=== PATIENT | female | born 1990 | race Caucasian/White ===

== ENCOUNTER 2020-05-15 17:12 | Emergency (ER) | payer BC, SELFPAY ==
--- NOTE | 2020-05-15 17:21 | ED.GENADULT ---
HPI - General Adult General Chief complaint: Wound/Laceration Stated complaint: Laaceration on finger Time Seen by Provider: 05/15/20 17:21 Source: patient Mode of arrival: ambulatory Limitations: no limitations History of Present Illness HPI narrative: 30-year-old female patient presents to the [facility] with complaints of a cut to the left index finger. Patient states she was cutting avocados with some new knives and accidentally cut her finger. Patient denies any numbness or feet tingling to the finger. Patient unsure of when her last tetanus shot was. Related Data Home Medications Medication Instructions Recorded Confirmed sertraline 100 mg PO DAILY 05/15/20 05/15/20 Allergies Allergy/AdvReac Type Severity Reaction Status Date / Time No Known Allergies Allergy Verified 07/17/19 20:33 Review of Systems Review of Systems: Narrative: CONSTITUTIONAL: Denies fever, chills, or sweats. EYES: Denies visual changes, redness, or discharge. ENT: Denies rhinorrhea, congestion, sore throat, or otalgia. CARDIOVASCULAR: Denies chest pain, palpitations, or edema. RESPIRATORY: Denies cough or dyspnea. GASTROINTESTINAL: Denies abdominal pain, nausea, vomiting, or diarrhea. GENITOURINARY: Denies dysuria or hematuria. SKIN: Denies rash or itching. Positive laceration to left index finger MUSCULOSKELETAL: Denies back pain, joint pain, or myalgia. NEUROLOGIC: Denies headache, numbness, or weakness. PSYCHIATRIC: Denies anxiety or depression. [facility] Past Medical History Medical History (Updated 05/15/20 @ 17:45 by CINTHIA Ybarra) Depression UTI (urinary tract infection) Surgical History Surgical History H/O adenoidectomy History of tonsillectomy Family History Family History Grandparent Family history of hypercholesterolemia Hypertension Family history of malignant neoplasm Mother Depression Other Family history of lung cancer Social History Social History Smoking status: Never smoker Alcohol intake: current Gender identity (if verbalized by the patient): Female Comments At the time of my signature I agree with nursing past medical history, surgical, social, and family history. There is no relevant family history pertinent to the presenting complaint. Exam Narrative: Exam Narrative: GENERAL: Well-appearing, well-nourished, and in no acute distress. HEAD: Normocephalic, atraumatic. EYES: PERRLA and EOMI. ENT: Nares clear, no rhinorrhea or epistaxis. Mucous membranes moist. NECK: Supple. No lymphadenopathy CHEST: Clear to auscultation. No respiratory distress. HEART: Regular rate and rhythm. No murmur heard. Normal peripheral pulses. ABDOMEN: Soft, nontender, nondistended, normal active bowel sounds. EXTREMITIES: Normal range of motion. No edema. SKIN: Warm, dry, no rash. Patient has approximately 4 cm horizontal laceration across the base of the left index finger between the PIP and MCP joints. Patient has good range of motion of the finger. Good cap refill good pulses. The laceration is not gaping there is no active bleeding at this time. The laceration is pretty superficial. NEURO: No focal deficits. Alert and oriented x3. Course Vital Signs Vital signs: Vital signs reviewed. Procedures Laceration Laceration 1: Date: 05/15/20 Time: 17:38 Site: hand (Index finger) Side (If applicable): left Size (cm): 4 Description: linear Depth: simple, single layer Local Anesthetic: none ====== Skin Level ====== ====== Subcutaneous Layer ====== ====== Muscle Layer ====== ====== Tendon Layer ====== Dressing: The Procedure was explained and verbal consent was obtained. Sterile drape and prep were done. Copious irrigation was done with saline and Shur-Cl
[2020-05-15 17:23] VITALS: BP 117/83; PULSE 69; RESP 16; TEMP 36.5; O2SAT 100
[2020-05-15] MEDS: TETANUS,DIPHTHERIA,AC PERTUSSIS ADULT (0.5 ML) BOOSTRIX IM (17:42)
== END 2020-05-15 17:52 | disposition home or self-care (01) ==
PROVIDERS: Emergency Provider Nurse Practitioner Family
DX: S61.211A Laceration without foreign body of left index finger without damage to nail, initial encounter (principal); W26.0XXA Contact with knife, initial encounter; Y93.G9 Activity, other involving cooking and grilling; Z23 Encounter for immunization; F32.9 Major depressive disorder, single episode, unspecified
CPT/HCPCS: 12002; 90471; 90715; 99212; G0463

== ENCOUNTER → 2020-10-19 15:47 | Outpatient (CLI) | payer OTHER, SELFPAY ==
--- NOTE | ~2020-10-19 | US_ITS ---
US OB transvaginal DATE: 10/19/2020 16:27 INDICATION: Gestational age determination TECHNIQUE: Real-time imaging via transvaginal approach COMPARISON: None FINDINGS: The uterus measures 8.7 cm height, 5.7 cm anteroposterior and 6.3 cm transverse dimension. A normally shaped intrauterine gestational sac is noted, with normal surrounding hyperechogenicity co nsistent with decidual reaction. Normal amount of adnexal fluid. pole and yolk sac are identifi ed. cardiac motion with heart rate of 174 bpm. Combine-rump length averages 1.85 cm, consistent with estimated gestational age of 8 weeks 2 days +/- 5 days, with SHIRA of 05/29/2021. IMPRESSION: Estimated gestational age of 8 weeks 2 days +/- 5 days; SHIRA by ultrasound is 05/29/2021 Reviewed, dictated and finalized at [facility]. Reviewed, dictated and finalized at [facility]. IMPRESSION: Estimated gestational age of 8 weeks 2 days +/- 5 days; SHIRA by ultr asound is 05/29/2021
== END ==
PROVIDERS: Visit Provider Obstetrics & Gynecology Gynecology
DX: Z36.87 Encounter for antenatal screening for uncertain dates (principal); Z3A.08 8 weeks gestation of pregnancy
CPT/HCPCS: 76817

== ENCOUNTER → 2020-12-26 15:12 | Outpatient (CLI) | payer OTHER, SELFPAY ==
--- NOTE | ~2020-12-26 | US_ITS ---
EXAMINATION: US OB /maternal detail DATE: 12/26/2020 16:24 INDICATION: survey TECHNIQUE: Multiple obstetric sonographic images performed. FINDINGS: No prior studies for comparison. There is a single living fetus in vertex presentation. The placenta is anterior without placenta pre via. Placental margin to the cervix is 0.7 cm. Amniotic fluid volume is subjectively normal. cardiac activity and movement is noted with a heart rate of 155 beats per minute. The following anatomy was identified as normal: 4 chamber heart (outflow tracts are not adequately visualized.) 3 vessel cord cord insertion kidneys urinary bladder stomach spine diaphragm ventricles cisterna magna cerebellum The following biometric data were obtained: BPD: 41mm corresponds to gestational age 18 weeks 3 days. Head circumference: 153 mm corresponds to gestational age 18 weeks 2 days. Abdominal circumference: 131 mm corresponds to gestational age 18 weeks 4 days. Femur length: 27 mm corresponds to gestational age 18 weeks 1 days. Head circumference to abdominal circumference ratio: 1.17 (normal range for expected gestational age is 1.08-1.27). Estimated weight: 239 grams +/- 36 grams using Hadlock method. IMPRESSION: 1: Single living intrauterine with an estimated gestational age of 18weeks 0days by initial ultrasound measurements, with an EDC of 05/29/2021 in vertex presentation. 2. survey limited for evaluation of ventricular outflow tracts. Otherwise, unremarkable survey . Recommend attention to the outflow tracts on subsequent study. 3: Low-lying anterior placenta measuring 2.7 cm to the cervix. Recommend follow-up ultrasound to asse ss for placental migration. Reviewed, dictated and finalized at [facility]. IMPRESSION: 1: Single living intrauterine with an estimated gestational age of 18 weeks 0days by initial ultrasound measurements, with an EDC of 05/29/2021 in ve rtex presentation. 2. survey limited for evaluation of ventricular outflow tracts. Otherwis e, unremarkable survey. Recommend attention to the outflow tracts on subsequent study. 3: Low-lying anterior placenta measuring 2.7 cm to the cervix. Recommend follow -up ultrasound to assess for placental migration.
== END ==
PROVIDERS: Visit Provider Obstetrics & Gynecology Gynecology
DX: Z34.92 Encounter for supervision of normal pregnancy, unspecified, second trimester (principal); Z3A.18 18 weeks gestation of pregnancy
CPT/HCPCS: 76805

== ENCOUNTER 2021-06-03 17:00 | Inpatient (IN) | payer OTHER, SELFPAY ==
[2021-06-03] VITALS (11 sets, daily range): BP systolic 101–135; BP diastolic 54–86; PULSE 61–84; TEMP 37; BMI 37.7
--- NOTE | 2021-06-03 17:22 | LDADM ---
This patient, Tamanna Gabriel, was admitted to Labor/Delivery/Recovery 104 on 06/03/21 at 17:00. Plans for labor, pain management and were discussed with patient. Patient/family oriented to hospital policies and general routines including ID bracelet, bed and alarms, visiting hours, pain management, procedures, bathroom and other care routines, personal items, smoking policy, room service/diet and guest tray routines, security routines, and visiting hours. Patient/Family are encouraged to report perceived risks to care and to ask questions if they do not understand what they are told or what they should do. See OBIX for further documentation.
[2021-06-03 17:36] LABS: Basophils Absolute Auto 0.1 K/mm3 (0.0-0.1); Basophils Percent Auto 0.4 % (0.2-1.2); Eosinophils Absolute Auto 0.2 K/mm3 (0-0.3); Eosinophils Percent Auto 1.3 % (0-4.4); Hematocrit 37.6 % (37.0-47.0); Hemoglobin 12.9 g/dL (12.0-15.0); Immature Granulocyte Percent A 2.2 % (0-0.5); Lymphocytes Absolute Auto 2.65 K/mm3 (0.9-3.2); Lymphocytes Percent Auto 19.3 % (18.3-44.2); Mean Corpuscular HGB Conc 34.3 g/dl (32-36); Mean Corpuscular Hemoglobin 30.7 pg (26-34); Mean Corpuscular Volume 89.5 fl (80-100); Mean Platelet Volume 10.7 fl (7.4-10.4); Monocytes Absolute Auto 0.8 K/mm3 (0.1-0.6); Monocytes Percent Auto 5.5 % (2.6-8.5); Neutrophils Absolute Auto 9.8 K/mm3 (1.3-6.7); Neutrophils Percent Auto 71.3 % (45.5-73.1); Platelet Count Result 259 k/mm3 (150-375); Red Cell Distribution Width 12.5 % (11.5-14.5); White Blood Count 13.8 K/mm3 (4.5-10.0)
[2021-06-03] MEDS: DINOPROSTONE 10 MG VAG INSERT VAGINAL (17:54)
[2021-06-03] MEDS: LACTATED RINGERS 1,000 ML 125 ML IV CONT (22:00)
--- NOTE | 2021-06-03 22:35 | WPDANESEPP ---
Anes - Eval Pre Procedure Procedure: Labor epidural Date/Time: 06/03/21 22:35 Surgeon: emmy Preop Diagnosis: Abd pain with contractions Pre Op Diagnosis: induction of labor Patient Data Age: 31 Gender: F Height: 1.68 m Weight: 106 kg Last Vital Signs Temp 98.6 F 06/03/21 17:47 Pulse 68 06/03/21 20:01 BP 116/56 L 06/03/21 20:01 Allergies Allergy/AdvReac Type Severity Reaction Status Date / Time No Known Allergies Allergy Verified 07/11/20 13:34 Home Medications Medication Instructions Recorded Confirmed Type PNV cmb#95-ferrous fumarate-FA 1 tablet PO DAILY 04/30/21 06/03/21 History [] sertraline 50 mg PO DAILY 04/30/21 06/03/21 History valacyclovir [Valtrex] 500 mg PO DAILY 04/30/21 06/03/21 History Laboratory Tests 06/03/21 06/03/21 06/03/21 17:24 17:24 17:24 WBC 13.8 K/mm3 H K/mm3 (4.5-10.0) RBC 4.20 M/mm3 M/mm3 (4.2-5.4) Hgb 12.9 g/dL g/dL (12.0-15.0) Hct 37.6 % % (37.0-47.0) MCV 89.5 fl fl (80-100) MCH 30.7 pg pg (26-34) MCHC 34.3 g/dl g/dl (32-36) RDW 12.5 % % (11.5-14.5) Plt Count 259 k/mm3 k/mm3 (150-375) MPV 10.7 fl H fl (7.4-10.4) Immature Gran % (Auto) 2.2 % H % (0-0.5) Neut % (Auto) 71.3 % % (45.5-73.1) Lymph % (Auto) 19.3 % % (18.3-44.2) [place] % (Auto) 5.5 % % (2.6-8.5) Eos % (Auto) 1.3 % % (0-4.4) Baso % (Auto) 0.4 % % (0.2-1.2) Lymph # (Auto) 2.65 K/mm3 K/mm3 (0.9-3.2) [place] # (Auto) 0.8 K/mm3 H K/mm3 (0.1-0.6) Eos # (Auto) 0.2 K/mm3 K/mm3 (0-0.3) Baso # (Auto) 0.1 K/mm3 K/mm3 (0.0-0.1) Abs Immat Gran (auto) 0.30 K/mm3 H K/mm3 (0.00-0.031) Absolute Neuts (auto) 9.8 K/mm3 H K/mm3 (1.3-6.7) Absolute Nucleated RBC 0.0 K/mm3 K/mm3 (0.0-0.012) Nucleated RBC % 0.0 % % (0.0-0.2) RPR Pending Blood Type O Positive Antibody Screen Negative Patient hx anesthesia problems: none Family hx anesthesia problems: none Results Review: All pre-operative results and documents have been reviewed as part of the pre-operative evaluation. [facility] Past Medical History Medical History (Updated 06/03/21 @ 22:36 by Chris Romero CRNA) Anxiety and depression Depression Obesity and not yet delivered Septal defect, heart UTI (urinary tract infection) Surgical History Surgical History H/O adenoidectomy History of tonsillectomy Family History Family History Grandparent Family history of hypercholesterolemia Hypertension Family history of malignant neoplasm Mother Depression Other Family history of lung cancer Social History Social History (Updated 07/11/20 @ 13:36 by Beatriz Stuart CMA) Smoking status: Never smoker Second hand tobacco smoke exposure: No Alcohol intake: current Substance use: never Substance use type: does not use Gender identity (if verbalized by the patient): Female Spiritual care concerns: No Exam Day of Procedure 06/03/21 22:35 Patient weight: obese Airway: Mallampati scale class II Neurological: alert and oriented
[2021-06-04] VITALS (116 sets, daily range): BP systolic 88–137; BP diastolic 41–91; PULSE 28–227; RESP 15–18; TEMP 36.5–37.7; O2SAT 85–100
[2021-06-04] MEDS: fentaNYL CITRATE INJ (*CRX) 100 MCG/2 ML VIAL 50 MCG IV PUSH (00:37)
--- NOTE | 2021-06-04 05:14 | WPDOBADMIT ---
Obstetrics - Admit Note Admission Note: record reviewed. No pertinent additions to the history and/or any subsequent changes in the physical findings that are not consistent with the expected course of the were found. Patient labor began with cervidil. Called to bedside for prolonged decel with contractions. decel x 8 mins. carmela every 1-2 mins. Terbutaline x1 given contractions stopped bradycardia resolved. AROM scant green tinged fluid. IUPC and scalp electrode placed. monitoring showed variable decels Amnioinfusion started 300 cc bolus with 125cc/hr continuous. Additions to the history and/or subsequent changes in the physical findings follow. None.
--- NOTE | 2021-06-04 05:38 | PM.IMHP ---
H&P: HPI History of Present Illness Date/Time: 06/04/21 05:38 Patient is 31 y/o @ 40 and 6/[address] Ferrell[address] complicated by . Presented to Labor and delivery for induction of labor. with cervidil. Patient labor began with cervidil. Called to bedside for prolonged decel with contractions. decel x 8 mins. carmela every 1-2 mins. Terbutaline x1 given contractions stopped bradycardia resolved. AROM scant green tinged fluid. IUPC and scalp electrode placed. monitoring showed variable decels Amnioinfusion started 300 cc bolus with 125cc/hr continuous Despite intervention continue to have repetitive decels. Decision made to proceed with csection. Chief Complaint: Induction of labor Review of Systems Review of Systems: nausea PMFSH Past Medical History Medical History (Updated 06/04/21 @ 05:46 by Rajeev Hutchins MD) Anxiety and depression Depression intolerance to labor, delivered, current hospitalization Obesity and not yet delivered Septal defect, heart UTI (urinary tract infection) Surgical History Surgical History H/O adenoidectomy History of tonsillectomy Family History Family History Grandparent Family history of hypercholesterolemia Hypertension Family history of malignant neoplasm Mother Depression Other Family history of lung cancer Social History Social History (Updated 07/11/20 @ 13:36 by Beatriz Stuart [facility]) Smoking status: Never smoker Second hand tobacco smoke exposure: No Alcohol intake: current Substance use: never Substance use type: does not use Gender identity (if verbalized by the patient): Female Spiritual care concerns: No Meds Home Medications and Allergies Home Medications Medication Instructions Recorded Confirmed Type PNV cmb#95-ferrous fumarate-FA 1 tablet PO DAILY 04/30/21 06/03/21 History [] sertraline 50 mg PO DAILY 04/30/21 06/03/21 History valacyclovir [Valtrex] 500 mg PO DAILY 04/30/21 06/03/21 History Allergies Allergy/AdvReac Type Severity Reaction Status Date / Time No Known Allergies Allergy Verified 07/11/20 13:34 Vital Signs Vital Signs - 24 hr 06/03/21 17:40 06/03/21 17:47 06/03/21 18:01 Temperature 37.0 C Pulse Rate 79 66 Blood Pressure 126/86 124/75 Pulse Oximetry 06/03/21 18:31 06/03/21 19:01 06/03/21 19:31 Temperature Pulse Rate 69 70 61 Blood Pressure 107/54 L 108/61 113/56 L Pulse Oximetry 06/03/21 20:01 06/03/21 22:40 06/03/21 22:46 Temperature Pulse Rate 68 75 75 Blood Pressure 116/56 L 135/78 124/82 Pulse Oximetry 06/03/21 23:01 06/03/21 23:16 06/04/21 02:27 Temperature Pulse Rate 77 84 84 Blood Pressure 101/77 128/84 128/74 Pulse Oximetry 06/04/21 02:31 06/04/21 02:35 06/04/21 02:40 Temperature Pulse Rate 79 Blood Pressure 88/61 L Pulse Oximetry 99 98 06/04/21 02:41 06/04/21 02:42 06/04/21 02:44 Temperature Pulse Rate 87 82 75 Blood Pressure 121/75 114/91 H 115/74 Pulse Oximetry 06/04/21 02:45 06/04/21 02:46 06/04/21 02:48 Temperature Pulse Rate 85 68 Blood Pressure 104/88 116/59 L Pulse Oximetry 100 06/04/21 02:50 06/04/21 02:51 06/04/21 02:53 Temperature Pulse Rate 75 67 Blood Pressure 122/70 107/49 L Pulse Oximetry 100 06/04/21 02:55 06/04/21 02:56 06/04/21 02:58 Temperature 37.4 C Pulse Rate 69 81 Blood Pressure 120/64 117/67 Pulse Oximetry 99 06/04/21 03:00 06/04/21 03:01 06/04/21 03:05 Temperature Pulse Rate 77 Blood Pressure 122/73 Pulse Oximetry 98 99 06/04/21 03:10 06/04/21 03:15 06/04/21 03:16 Temperature Pulse Rate 70 Blood Pressure 112/52 L Pulse Oximetry 100 100 06/04/21 03:20 06/04/21 03:25 06/04/21 03:30 Temperature Pulse Rate Blood Pressure
--- NOTE | 2021-06-04 05:47 | WPDHPUPDATE1 ---
History and Physical Update Update Date/Time: 06/04/21 05:47 History and Physical has been reviewed, including an updated exam of the patient. There are NO changes in the patient's condition. Risks, benefits, and alternatives have been discussed and questions answered. Patient agrees to proceed with procedure.
[2021-06-04] MEDS: OXYTOCIN 30 UNITS/NS 500 ML 30 UNITS/500 ML BAG 125 UNITS IV CONT (08:24)
--- NOTE | 2021-06-04 09:08 | PC.NURSE ---
Patient transferred to post room #286 per stretcher from labor and delivery. Support person present. Oriented to unit, room, information board, rooming in, admission packet and security measures. Patient verbalizes understanding.
[2021-06-04] MEDS: KETOROLAC 30 MG/ML VIAL (*BKC) IV PUSH ×2 (09:40→15:59)
[2021-06-04] MEDS: LORATADINE 10 MG TABLET PO (09:40)
[2021-06-04] MEDS: diphenhydrAMINE HCl INJ 50 MG/ML VIAL 25 MG IV PUSH (09:40)
--- NOTE | 2021-06-04 10:40 | PC.NURSE ---
Mother called out for assist with feeding, reporting she is unable to latch . Nipples appear flat, demonstrated how to roll at nipples to draw out. Both nipples draw out to everted nipples. Reviewed infant feeding cues, frequencies, duration of feedings, feeding elimination flow sheet, and signs of adequate intake. Demonstrated stimulation techniques to wake infant for feeding. Assisted with to breast. Reviewed positioning/alignment in football, holding breast in ?C? hold and guided asymmetrical latch on. Reviewed rational for each. Several attempts before infant able to latch correctly.. nursed eagerly with steady draws and occasional swallowing noted, some pausing noted. Reviewed signs of a correct latch, effective nursing and suck swallow ratio. Suggested mother stimulate while feeding to increase stimulation for milk supply, for increased intake and to assist with maintaining deep latch. Infant would slip to shallow latch causing tenderness and release latch. Demonstrated how to adjust latch more deeply while feeding as needed. Mother reports she can feel the difference in latch with no tenderness. Nipple care reviewed of lanolin after feedings, warm compresses as needed. Instructed mother to call out for RN assistance if she is unable to latch for feeding or she has discomfort with nursing. Instructed feeding should be initiated three hours from start of last feeding or if feeding cues are noted before. Mother voiced understanding of information shared.
[2021-06-04] MEDS: DEXTROSE 5%/0.45% SOD CHL 1,000 ML 125 ML IV CONT (12:43)
--- NOTE | 2021-06-04 13:30 | PC.NURSE ---
Mother called out for assist with feeding, reporting she is unable to latch . Assisted with to breast in football. Assisted mother with pillows and support due to C/S. Reviewed positioning/alignment in football, holding breast in ?C? hold and guided asymmetrical latch on. Reviewed rational for each. Several attempts before able to latch correctly.. Infant nursed eagerly with steady draws and occasional swallowing noted, some pausing noted. Reviewed signs of a correct latch, effective nursing and suck swallow ratio. Suggested mother stimulate while feeding to increase stimulation for milk supply, for increased intake and to assist with maintaining deep latch. Infant would slip to shallow latch causing tenderness and release latch. Demonstrated how to adjust latch more deeply while feeding as needed. Mother reports she can feel the difference in latch with no tenderness. Nipple care reviewed of lanolin after feedings, warm compresses as needed. Instructed mother to call out for RN assistance if she is unable to latch infant for feeding or she has discomfort with nursing. Instructed feeding should be initiated three hours from start of last feeding or if feeding cues are noted before. Mother voiced understanding of information shared.
[2021-06-04 14:39] LABS: Rapid Plasma Reagin Non-Reactive (NonReactive)
[2021-06-04] MEDS: SERTRALINE HCL 50 MG TABLET PO (15:54)
[2021-06-04] MEDS: HYDROcodone/acetaminophen (*CRX) 10-325 MG TABLET 1 TAB PO ×2 (19:28→22:28)
[2021-06-04] MEDS: IBUPROFEN 600 MG TABLET PO (22:27)
[2021-06-05] MEDS: HYDROcodone/acetaminophen (*CRX) 10-325 MG TABLET 1 TAB PO (02:01)
[2021-06-05 04:10] VITALS: BP 98/61; PULSE 72; RESP 16; TEMP 36.5; O2SAT 95
[2021-06-05 04:56] LABS: Basophils Absolute Auto 0.1 K/mm3 (0.0-0.1); Basophils Percent Auto 0.6 % (0.2-1.2); Eosinophils Absolute Auto 0.2 K/mm3 (0-0.3); Eosinophils Percent Auto 1.3 % (0-4.4); Hematocrit 34.2 % (37.0-47.0); Hemoglobin 11.2 g/dL (12.0-15.0); Immature Granulocyte Percent A 0.8 % (0-0.5); Lymphocytes Absolute Auto 3.09 K/mm3 (0.9-3.2); Lymphocytes Percent Auto 25.8 % (18.3-44.2); Mean Corpuscular HGB Conc 32.7 g/dl (32-36); Mean Corpuscular Hemoglobin 30.7 pg (26-34); Mean Corpuscular Volume 93.7 fl (80-100); Mean Platelet Volume 10.4 fl (7.4-10.4); Monocytes Absolute Auto 0.6 K/mm3 (0.1-0.6); Monocytes Percent Auto 4.8 % (2.6-8.5); Neutrophils Percent Auto 66.7 % (45.5-73.1); Platelet Count Result 202 k/mm3 (150-375); Red Blood Count 3.65 M/mm3 (4.2-5.4); Red Cell Distribution Width 13.2 % (11.5-14.5)
--- NOTE | 2021-06-05 07:10 | WPDANLDNPN2 ---
Anes-Prog Note L&D-Neuraxial Date/Time: 06/05/21 07:10 Neuraxial medications: epidural PF morphine Opiod-related complaints: none Patient feedback: Patient satisfied with post-operative pain management.
--- NOTE | 2021-06-05 07:10 | WPDANLDPN2 ---
Anes-Prog Note L&D Date/Time: 06/05/21 07:10 Comfortable throughout: labor, delivery and section Neuraxial method: epidural Epidural/Spinal procedure site: clean & non-tender Neuro status: Neuro function grossly intact. Cardiovascular status: normal Respiratory status: normal Airway patency: baseline Mental status: baseline Post-Op hydration status: normal Vital Signs: Last Vital Signs Temp 36.5 C 06/05/21 04:10 Pulse 72 06/05/21 04:10 Resp 16 06/05/21 04:10 BP 98/61 L 06/05/21 04:10 Pulse Ox 95 06/05/21 04:10 Pain score (VAS): 0 I/O: Intake & Output 06/04/21 06/04/21 06/05/21 15:59 23:59 07:59 Intake Total 1950 400 Output Total 1150 1200 900 Balance -1150 750 -500 Post-procedural complaints: none Patient feedback: Patient satisfied with anesthetic care.
--- NOTE | 2021-06-05 07:35 | P.PNOB_ITS ---
OB - PN: Subj Subjective Date/time seen: 06/05/21 07:35 Patient comments: no complaints and pain well controlled baby status: doing well OB - PN: Obj Data Labs CBC & Chem 7: 06/05/21 04:21 Labs: Laboratory Results - last 24 hr 06/03/21 06/05/21 17:24 04:21 WBC 12.0 H RBC 3.65 L Hgb 11.2 L Hct 34.2 L MCV 93.7 MCH 30.7 MCHC 32.7 RDW 13.2 Plt Count 202 MPV 10.4 Immature Gran % (Auto) 0.8 H Neut % (Auto) 66.7 Lymph % (Auto) 25.8 [place] % (Auto) 4.8 Eos % (Auto) 1.3 Baso % (Auto) 0.6 Lymph # (Auto) 3.09 [place] # (Auto) 0.6 Eos # (Auto) 0.2 Baso # (Auto) 0.1 Abs Immat Gran (auto) 0.10 H Absolute Neuts (auto) 8.0 H Absolute Nucleated RBC 0.0 Nucleated RBC % 0.0 RPR Non-reactive OB - PN A/P Plan day: 1 Plan: routine care Time Spent With Patient Time: Total time spent is greater than 50% in coordination of care (as documented) at patient's floor/unit and/or counseling patient: Exam Narrative: inc c/d/i : Bimanual exam- vagina & uterus: other (Uterus firm, nt @U)
[2021-06-05 07:45] VITALS: BP 102/63; PULSE 68; RESP 16; TEMP 37; O2SAT 97
[2021-06-05] MEDS: HYDROcodone/acetaminophen (*CRX) 5-325 MG TABLET 1 TAB PO ×3 (09:00→20:43)
[2021-06-05] MEDS: DOCUSATE SODIUM 100 MG CAPSULE PO ×2 (09:00→16:09)
[2021-06-05] MEDS: IBUPROFEN 600 MG TABLET PO ×2 (09:01→16:09)
--- NOTE | 2021-06-05 11:45 | PC.NURSE ---
Mother called out for assist with feeding. Mother reports infant has had difficulties with latching and maintaining latch. Mother was given a nipple shield for feeding and now using for all feedings. Infant is able to freely thrust tongue past gum ridge and flange both lips, tends to tongue suck and not open wide for deep latch. Skin is intact on both nipples, slight redness and bruising noted bilaterally. Nipple care reviewed of lanolin after feedings, warm compresses as needed. Instructions given on application and cleaning of shield. Discussed nipple shield precautions and possible complications. Patient able to return demonstration on proper application of shield. Discussed the need to initiate pumping if continues to nurse with the shield. Patient verbalizes understanding. Reviewed feeding cues, frequencies, duration of feedings, feeding elimination flow sheet, and signs of adequate intake. Demonstrated stimulation techniques to wake infant for feeding. Assisted with to breast. Reviewed positioning/alignment in cross cradle, holding breast in ?U? hold and guided asymmetrical latch on. Reviewed rational for each. made eager attempts and was unable to draw nipple in deeply. Attempt for 10 minutes. With shield in place, was able to latch correctly. Infant nursed eagerly, with steady draws for short burst followed with pausing. Reviewed signs of a correct latch, effective nursing and suck swallow ratio. was able to maintain latch without discomfort to mother. Suggested mother stimulate while feeding to increase stimulate, increase intake and to assist with maintaining deep latch. Demonstrated how to adjust latch more deeply while feeding if needed. Instructed mother to call out for RN assistance if she is unable to latch infant for feeding or she has discomfort with nursing. Instructed feeding should be initiated three hours from start of last feeding or if feeding cues are noted before. Mother voiced understanding of information shared.
--- NOTE | 2021-06-05 16:55 | P.OP_ITS ---
Procedure Note - Detailed Date of Procedure 06/04/21 Pre-op Diagnosis intolerance to labor Post-op Diagnosis same Procedure Performed primary LTCS Surgeon Rajeev Hutchins MD Anesthesia epidural Indications recurrent decelarations Findings male infant vertex prolapsed cord along right cheaek and ear, nuchal cord, body cord and cord around left ankle. Description of Procedure Patient was taken to the operating room with IV running. She was prepped and draped in a normal sterile fashion and placed in a supine position with leftward tilt. Patient epidural was in place. A Pfannenstiel skin incision was made with a scalpel carried down to the underlying layer of fascia. This fascia incision was then extended bilaterally with Sun scissors. Superior aspect of the incision was grasped with Inderjit clamps elevated and dissected off the rectus muscles. Inferior portion of the incision was grasped with Inderjit clamps elevated dissected off the rectus muscles. The rectus muscles were in the midline the peritoneum was entered bluntly bladder blade was inserted uterine and a low transverse incision was made on the uterus with the scalpel. This incision was extended bluntly. The prolapsed cord along right cheek and ear, head was delivered atraumatically , nuchal cord, body cord and cord around left ankle.nuchal cord noted loose and reduced and the remainder of the fetus was delivered atraumatically cord was clamped and cut and handed off to the waiting nurse the hairspring i inspector. Cord gases were obtained cord blood was obtained the placenta was delivered spontaneously and the uterus was exteriorized and cleared of all clots and debris. Uterine incision was closed with 0 Monocryl in a running locked fashion 2nd layer of the same suture was used to imbricate this incision on the corner of the right portion of the uterus her bleeding was noted in a figure-eight stitch was placed with 0 Monocryl hemostasis was assured. The uterus was returned to the abdomen the gutters were cleared of all clots and debris uterine incision was covered with Interceed in the T fashion the muscles were examined for hemostasis and the fascia was closed with 0 Vicryl in a running fashion. Subcutaneous tissue was irrigated and closed with 3-0 plain gut and the skin was closed with 0 Vicryl on a Asael needle the patient received 2g Ancef prior to skin incision. Estimated Blood Loss -505.0 Urine Output 600 Drains Yes Packing No Pathology yes Complications None Condition stable Disposition PACU
--- NOTE | 2021-06-05 17:01 | PM.OBPRVD ---
OB - Delivery Note Procedure Delivery date: 06/04/21 Procedure: Procedures Operation Date: 06/04/21 05:45 Actual Procedure Side Surgeon p Section Rajeev Hutchins MD events: Labor Induction and Meconium Stained Fluid Intrapartal events: Intolerance Induction method: AROM and per cervidil protocol Delivery monitor: external FHT, external uterine, internal FHT and internal uterine Route of delivery: Quantitative Blood Loss (ml): 505 Anesthesia type: Epidural Disposition: PACU Baby Date of : 06/04/21 Weeks of gestation at delivery: 40 Infant gender: Male presentation: vertex Placenta delivery description: Spontaneous cord vessel description: 3 Vessels, Nuchal Cord, Around Body x1 and Around Extremity x1
[2021-06-05 20:30] VITALS: BP 129/80; PULSE 63; RESP 16; TEMP 37.2; O2SAT 99
[2021-06-05] MEDS: SERTRALINE HCL 50 MG TABLET PO (20:44)
[2021-06-06] MEDS: IBUPROFEN 600 MG TABLET PO ×3 (01:17→15:42)
[2021-06-06] MEDS: HYDROcodone/acetaminophen (*CRX) 5-325 MG TABLET 1 TAB PO (01:17)
[2021-06-06 07:45] VITALS: BP 120/81; PULSE 65; RESP 18; TEMP 37.3; O2SAT 100
--- NOTE | 2021-06-06 08:00 | PC.NURSE ---
Consult with pt., RN reports has a low blood glucose level and requires supplementation. Mother is upset believing infant has been feeding well. Assured mother infant will be able to continue to breastfeed after this bottle feeding. Another blood glucose will be done 1 hour after feeding. Mother will supplement 20-30mls formula then put to breast. Next feedings mother will put infant to breast by three hours from last feeding or before if feeding cues noted. Once has breastfed mother will then [id number] mls formula and will pump due to nipple shield use. Discussed possible reasoning for low glucose level. Discussed the difference of effective vs ineffective feeding. Reviewed infant is latching with good burst of suckling, he is not feeding consistently with adequate milk transfer at this time and continues to need supplement after . Feeding options discussed, Feeding Plan is for mother to put to breast each feeding for up to 15 minutes, then pace feed supplement 15-20 mls and pump for 10-15 minutes. Parents are comfortable with supplementation and pumping. If infant begins to nurse effectively with long draws and frequent swallowing noted, may decrease supplementation and discontinue pumping. Suggested mother have LC diesel plant operator observe feeding before discontinuing supplementation. Discussed increasing supplementation as infant requires to satisfactions. Reviewed paced feeding and suggested to stop when infant is satisfied, as long as infant is having required output. With increased supplementation infant may not want to feed for 4 hours. Mother will continue to pump on feeding schedule and will increase session to 20 minutes if pumping every 4 hours. Instructed mother to call out for RN assistance if she is unable to latch for feeding or she has discomfort with nursing. Instructed feeding should be initiated three hours from start of last feeding or if feeding cues are noted before. Mother voiced understanding of information shared.
[2021-06-06] MEDS: DOCUSATE SODIUM 100 MG CAPSULE PO (09:02)
[2021-06-06] MEDS: MULTIVIT/MIN/PREN/FOL AC/IRON TABLET 1 TAB PO (09:02)
[2021-06-06] MEDS: HYDROcodone/acetaminophen (*CRX) 10-325 MG TABLET 1 TAB PO ×3 (09:02→20:34)
[2021-06-06 20:15] VITALS: BP 137/86; PULSE 84; RESP 18; TEMP 37.1; O2SAT 97
[2021-06-07] MEDS: IBUPROFEN 600 MG TABLET PO ×2 (00:19→09:33)
[2021-06-07] MEDS: HYDROcodone/acetaminophen (*CRX) 10-325 MG TABLET 1 TAB PO (00:20)
[2021-06-07] MEDS: SERTRALINE HCL 50 MG TABLET PO (00:20)
[2021-06-07] MEDS: DOCUSATE SODIUM 100 MG CAPSULE PO ×2 (00:23→09:32)
[2021-06-07] MEDS: HYDROcodone/acetaminophen (*CRX) 5-325 MG TABLET 1 TAB PO ×2 (04:49→09:33)
--- NOTE | 2021-06-07 07:55 | PC.NURSE ---
Observed mother is able to independently latch infant with appropriate positioning/alignment. She denies any nipple discomfort, is feeding as required and waking infant to feed if needed. is more awake and making eager attempts with and maintaining latch without nipple shield. Infant has had a few effective feedings in the past 24 hours, all feedings is supplemented. Infant is currently meeting outcomes for weight, output, jaundice and feeding frequencies. ICP has suggested supplement after all breastfeedings until mother's milk is in and evaluated by corporation officer. Mother continues to pump after all feedings without difficulties or discomfort. Mother has a pump for home use. Discussed the difference of effective vs ineffective feeding. Reviewed infant requires supplementation after all feedings. He is latching with good burst of suckling, he is not feeding consistently with adequate milk transfer at this time and continues to need to be supplement after . Feeding plan discussed, Feeding Plan is for mother to put to breast each feeding for up to 15 minutes, then pace feed supplement 25-30 mls and pump for 10-15 minutes. Discussed increasing supplementation as infant requires to satisfactions. Reviewed paced feeding and suggested to stop when infant is satisfied, as long as infant is having required output. With increased supplementation infant may not want to feed for 4 hours. Mother will continue to pump on infant feeding schedule and will increase session to 20 minutes if pumping every 4 hours. If infant begins to nurse effectively with long draws and frequent swallowing noted, infant may decrease supplementation and discontinue pumping. Advised not to discontinue supplement until a pre/post feeding evaluation by infant PCP, Follow up RN or LC is completed. Mother states she feels confident to continue feeding plan at home. Reviewed transition to breast milk, signs of adequate intake, and engorgement/relief. Instructed to call ICP if intake/output less than required. Reviewed regular medications mother is taking. Information provided per [place]. Reviewed community resources on the [facility] website and in the Mom/Baby guide. Information on outpatient services provided. Mother has no further questions at this time.
[2021-06-07 08:40] VITALS: BP 116/79; PULSE 64; RESP 18; TEMP 36.3; O2SAT 99
[2021-06-07] MEDS: MULTIVIT/MIN/PREN/FOL AC/IRON TABLET 1 TAB PO (09:32)
[2021-06-08 10:51] VITALS: BP 121/74; PULSE 83; RESP 20; TEMP 37; O2SAT 99
--- NOTE | 2021-06-15 13:07 | PM.OBDSVD ---
DS: Admitting Diagnosis Discharge Date 06/07/21 Admitting Diagnosis Labor OB - DS: Summary OB Procedures : Ultrasound OB Procedures Intrapartum: OB Procedures: : None Peripartum Data Procedures: Procedures Operation Date: 06/04/21 05:45 Actual Procedure Side Surgeon p Section Rajeev Hutchins MD Time Spent with Patient Time attestation: Total time spent providing and/or coordinating discharge services: DS: Data Data Completed and Pending Completed studies during hospitalization: Pending at discharge 06/04/21 07:07 Surgical [PTH] Routine Discharge Plan Discharge Attending physician on discharge: Rajeev Hutchins Discharging Clinician: Rajeev Hutchins Anticipated Discharge Date/Time: 06/07/21 11:00 Patient Disposition: Home, Self-Care Activity: may shower, as tolerated and pelvic rest Diet: regular Discharge Instructions: Education: Mom and Baby Guide Given to: Mother Follow-Up: Call your delivering provider's office for an appointment to be seen in: 4 Weeks Mom and baby should come to the [facility] for the follow-up appointment. Appointment Date/Time: June 08, 2021 at 11:00 am What to expect at your follow-up visit: Blood Pressure Check Physical Assessment Call [phone] if you are unable to keep your appointment time. BREAST CARE: * Wear a snug supportive bra. * For engorgement discomfort: Breast Feeding: * Apply warm moist washcloths * Express milk as needed to relieve engorgement * Wear loose clothing Bottle Feeding: * May apply ice packs * For sore nipples: * Identify correct latch-on * Apply warm moist washcloths before and after nursing * Air dry nipples after nursing * May apply Lansinoh cream to nipples ABDOMINAL INCISION: (if applicable) * Allow incision to air dry * Do NOT use lotions for powders on your incision * When showering, allow soap and water to run over the incision, but do not wash incision EPISIOTOMY/PERINEAL CARE: * Until bleeding stops, use your guido bottle after urinating * Change your pad frequently throughout the day * You may take sitz baths several times a day (fill your bathtub with warm water and soak for 20 minutes.) Do NOT bathe in the water * No tub baths until seen by your physician - You may shower ACTIVITY: * Rest as much as possible. * Do not exercise or lift anything heavier than your baby (such as laundry or other children.) * Avoid stairs or driving as much as possible. * Do not put anything into the vagina. No douching, tampons, or sexual activity until seen by physician. NOTIFY PHYSICIAN IF YOU HAVE ANY QUESTIONS OR IF ANY OF THE FOLLOWING SYMPTOMS OCCUR: * If your episiotomy or incision becomes red, swollen, or more painful than what you have experienced in the hospital. * If your vaginal bleeding becomes foul smelling. * If your vaginal bleeding becomes more heavy than a period or if your bleeding changes from pink to bright red. However, you may pass an occasional walnut-sized clot once or twice for the first week . * If you experience a sharp, shooting pain in you calves. * If you discover a hard, reddened area on your breast or if you experience flu-like symptoms. DIET: * Eat regular, well-balanced meals. * Drink plenty of fluids daily. If , drink to thirst. Patient Instructions: Antibiotic Form Stand Alone Forms: General Discharge Information Follow-up/Referrals: Rajeev Hutchins MD [Physician] - Discharge Medications: New hydrocodone-acetaminophen 5-325 mg Tablet 1 tablet PO Q3H PRN (Reason: Moderate Pain (4-6)) Qty: 30 RF: 0 ibuprofen 600 mg Tablet 600 mg PO Q6H PRN (Reason: Cramping) Qty: 60 RF: 0 medroxyprogesterone [Depo-Provera] 150 mg/mL suspension 150 mg IM [id number] Qty: 1 RF: 3 [place]
== END 2021-06-07 12:42 | disposition home or self-care (01) | DRG 787 ==
LOC: ANHOB2 06-07 09:54 → ANHLDR 06-08 09:55 → ANHOB2 06-08 09:55
PROVIDERS: Admitting Provider Obstetrics & Gynecology Gynecology; Visit Provider Obstetrics & Gynecology
PROC: 10D00Z1 Extraction of Products of Conception, Low, Open Approach (ICD-10-PCS; CPT 59514; principal; 2021-06-04 05:45)
DX: O99.284 Endocrine, nutritional and metabolic diseases complicating childbirth (principal); O98.32 Other infections with a predominantly sexual mode of transmission complicating childbirth; Z37.0 Single live birth; Z3A.40 40 weeks gestation of pregnancy; E03.9 Hypothyroidism, unspecified; O69.2XX0 Labor and delivery complicated by other cord entanglement, with compression, not applicable or unspecified; O77.0 Labor and delivery complicated by meconium in amniotic fluid; O99.344 Other mental disorders complicating childbirth; F41.8 Other specified anxiety disorders; O36.8330 Maternal care for abnormalities of the fetal heart rate or rhythm, third trimester, not applicable or unspecified; O69.0XX0 Labor and delivery complicated by prolapse of cord, not applicable or unspecified; A60.00 Herpesviral infection of urogenital system, unspecified
CPT/HCPCS: 36415; 85025; 86592; 86850; 86900; 86901; 88307; A9270; J0131; J1200; J1885; J2274; J2405; J2590; J2795; J3010; J7120

== ENCOUNTER 2022-04-12 15:54 | Emergency (ER) | payer OTHER, SELFPAY ==
--- NOTE | ~2022-04-12 | XR_ITS ---
EXAMINATION: XR foot LT min 3V DATE: 04/12/2022 16:28 INDICATION: Medial left foot pain. TECHNIQUE: 4 views of left foot were obtained. COMPARISON: None. FINDINGS: Bone alignment is normal. No fracture. There is mild osteoarthritis of first metatarsophala ngeal joint. IMPRESSION: 1. Mild osteoarthritis of first metatarsophalangeal joint. Reviewed, dictated and finalized at location B.
[2022-04-12 16:10] VITALS: BP 120/77; PULSE 66; RESP 16; TEMP 36.7; O2SAT 99
--- NOTE | 2022-04-12 16:10 | ED.LOWEXIN ---
HPI - Extremity Injury (Lower) General Chief Complaint: Extremity Injury, Lower Stated Complaint: Left Foot Pain Time Seen by Provider: 04/12/22 16:10 Source: patient, RN notes reviewed and old records reviewed Mode of arrival: ambulatory Limitations: no limitations History of Present Illness HPI Narrative: 32-year-old female presents to the [facility] with complaints of left foot pain since Friday. No known injury. Patient reports I think I have a stress fracture. Related Data Home Medications Medication Instructions Recorded Confirmed sertraline 50 mg tablet 50 mg PO DAILY 04/30/21 06/03/21 Allergies Allergy/AdvReac Type Severity Reaction Status Date / Time No Known Allergies Allergy Verified 04/12/22 15:55 Review of Systems Review of Systems: All systems reviewed & are unremarkable except as noted in HPI and below Constitutional: Constitutional: Reports no additional constitutional complaints, Denies chills and Denies fever(s) Eyes: Eyes: Reports no additional eye complaints ENT: Reports system reviewed and no additional complaints, except as documented Cardiovascular: Cardiovascular: Reports no additional cardiovascular complaints Respiratory: Respiratory: Reports no additional respiratory complaints Gastrointestinal: Gastrointestinal: Reports no additional gastrointestinal complaints Musculoskeletal: Musculoskeletal: Reports as per HPI Integumentary/Breasts: Skin/Breast: Reports system reviewed and no additional complaints, except as docu Neurologic: Reports system reviewed and no additional complaints, except as documented Psychiatric: Psychiatric: Reports no additional psychiatric complaints Allergic/Immunologic: Allergic/Immunologic: Reports no additional allergic/immunologic complaints [facility] Past Medical History Medical History (Updated 04/12/22 @ 19:48 by Abbi Colon APRN) Anxiety and depression Depression intolerance to labor, delivered, current hospitalization Obesity and not yet delivered Septal defect, heart UTI (urinary tract infection) Surgical History Surgical History H/O adenoidectomy History of tonsillectomy Family History Family History Grandparent Family history of hypercholesterolemia Hypertension Family history of malignant neoplasm Mother Depression Other Family history of lung cancer Social History Social History Smoking status: Never smoker Second hand tobacco smoke exposure: No Alcohol intake: current Substance use: never Substance use type: does not use Gender identity (if verbalized by the patient): Female Spiritual care concerns: No Comments At the time of my signature, I reviewed and agree with the nursing past medical, surgical, social, and family history. There is no relevant family history pertinent to the patient complaint. Exam Const: General: healthy appearing, no acute distress, alert and well nourished Nutritional Appearance: well nourished and obese Orientation/consciousness: patient oriented x3 Limitations: no limitations HENMT: Head: normal to inspection Ears: external ears normal Eyes: General: appearance normal, both eyes and all related structures Pupils: Equal, round and reactive pupils present Neck: Neck: normal visual inspection, no lymphadenopathy and no meningeal signs Chest: Chest palpation & inspection: normal inspection of the chest Resp: Effort & Inspection: normal respiratory effort and no use of accessory muscles Auscultation: clear to auscultation bilaterally, no crackles, no rales, no rhonchi and no wheezes Cardio: Rate: regular rate Rhythm: regular rhythm Skin: General skin exam: normal color Rashes: no rashes Wounds: no wounds Neuro: General: patient oriented x3, moves all extremities, no meningeal s
== END 2022-04-12 16:46 | disposition home or self-care (01) ==
PROVIDERS: Emergency Provider Nurse Practitioner
DX: M79.672 Pain in left foot (principal); M19.072 Primary osteoarthritis, left ankle and foot; E66.9 Obesity, unspecified; Z68.35 Body mass index [BMI] 35.0-35.9, adult; F41.9 Anxiety disorder, unspecified; F32.A Depression, unspecified
CPT/HCPCS: 73630; 99213; G0463

== ENCOUNTER 2022-07-04 14:50 | Emergency (ER) | payer OTHER, SELFPAY ==
[2022-07-04 15:05] VITALS: BP 106/74; PULSE 85; RESP 16; TEMP 36.8; O2SAT 99
[2022-07-04 15:06] VITALS: BP 106/74; PULSE 85; RESP 16; TEMP 36.8; O2SAT 99
--- NOTE | 2022-07-04 15:33 | ED.URI ---
HPI - URI/Sore Throat General Chief Complaint: Upper Respiratory Infection Stated Complaint: Coughing,Running Nose Time Seen by Provider: 07/04/22 15:10 Source: patient Mode of arrival: ambulatory Limitations: no limitations History of Present Illness HPI Narrative: Tamanna is a 32-year-old female patient presenting to clinic today with complaints of body aches, fever, coughing, sore throat, and runny nose times 2 days. No known exposure to anybody with COVID, flu, or strep. MD elicited complaint: sore throat and nasal congestion Related Data Home Medications Medication Instructions Recorded Confirmed sertraline 50 mg tablet 50 mg PO DAILY 04/30/21 07/04/22 Allergies Allergy/AdvReac Type Severity Reaction Status Date / Time No Known Allergies Allergy Verified 07/04/22 15:05 Review of Systems Review of Systems: Pertinent positives per HPI. Patient denies any rash, headache, visual changes, dizziness, shortness of breath, chest pain, palpitations, nausea, vomiting, diarrhea, constipation, abdominal pain, or any urinary issues. PMFSH Past Medical History Medical History Anxiety and depression Depression intolerance to labor, delivered, current hospitalization Obesity and not yet delivered Septal defect, heart UTI (urinary tract infection) Surgical History Surgical History H/O adenoidectomy History of tonsillectomy Family History Family History Grandparent Family history of hypercholesterolemia Hypertension Family history of malignant neoplasm Mother Depression Other Family history of lung cancer Social History Social History Smoking status: Never smoker Second hand tobacco smoke exposure: No Alcohol intake: current Substance use: never Substance use type: does not use Gender identity (if verbalized by the patient): Female Spiritual care concerns: No Comments At the time of my signature, I reviewed and agree with the nursing past medical, surgical, social, and family history. There is no relevant family history pertinent to the patient complaint. Exam Narrative: General: Well-developed, well nourished, in no apparent distress Head: Normocephalic, atraumatic Eyes: Pupils equally round and reactive to light bilaterally, EOM intact, sclera and conjunctive clear, no discharge, lids normal Ears: TMs intact and clear, ear canals clear, no drainage, grossly hearing normal. Nose: Nares patent, clear nasal discharge, no inflammation, no sinus tenderness. Mouth: Oral pharynx without lesions or masses, good dentition, MMM. oropharynx red Neck: Supple, trachea midline, no enlargement of anterior or posterior cervical nodes, no thyroid masses or goiter palpable. Cardio: Regular rate and rhythm, s1 and s2 normal, no murmur appreciated. Resp: Clear to auscultation bilaterally, no rhonchi, rales, wheezing or rubs Course Course Emergency Course: Portions of this record may have been created with voice recognition software. Level of Care: Express Care Visit Vital Signs Vital signs: Vital Signs Temperature 36.8 C 07/04/22 15:05 Pulse Rate 85 07/04/22 15:05 Respiratory Rate 16 07/04/22 15:05 Blood Pressure 106/74 07/04/22 15:05 Pulse Oximetry 99 07/04/22 15:05 Oxygen Delivery Room Air 07/04/22 15:05 Temperature 36.8 C 07/04/22 15:06 Pulse Rate 85 07/04/22 15:06 Respiratory Rate 16 07/04/22 15:06 Blood Pressure 106/74 07/04/22 15:06 Pulse Oximetry 99 07/04/22 15:06 Oxygen Delivery Room Air 07/04/22 15:06 Vital signs reviewed MDM - URI/Sore Throat MDM Narrative Medical decision making narrative: At the time of visit patient is resting comfortably on the exam table. COVI
== END 2022-07-04 15:40 | disposition home or self-care (01) ==
PROVIDERS: Emergency Provider Nurse Practitioner Family
DX: J10.1 Influenza due to other identified influenza virus with other respiratory manifestations (principal); Z20.822 Contact with and (suspected) exposure to COVID-19; F41.9 Anxiety disorder, unspecified; F32.A Depression, unspecified; E66.9 Obesity, unspecified; Z68.36 Body mass index [BMI] 36.0-36.9, adult
CPT/HCPCS: 87426; 87804; 87880; 99213; C9803; G0463

== ENCOUNTER 2022-08-15 08:18 | Emergency (ER) | payer OTHER, SELFPAY ==
[2022-08-15 08:32] VITALS: BP 112/67; PULSE 81; RESP 18; TEMP 36.4; O2SAT 98
--- NOTE | 2022-08-15 08:46 | ED.URI ---
HPI - URI/Sore Throat General Chief Complaint: Upper Respiratory Infection Stated Complaint: Cough/ Sore Throat Time Seen by Provider: 08/15/22 08:37 Source: patient Mode of arrival: ambulatory Limitations: no limitations History of Present Illness HPI Narrative: Patient presents today complaining of 5 day history of cough, postnasal drip, nasal congestion and rhinorrhea, fatigue. Also reports shortness of breath when walking up the stairs. Reports of sore throat since this morning that she currently rates at 2/10. She has been taking DayQuil, NyQuil, Robitussin, and Emergen-C without much relief. Denies any history of asthma or COPD. She is a nonsmoker. 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 Related Data Home Medications Medication Instructions Recorded Confirmed sertraline 50 mg tablet 50 mg PO DAILY 04/30/21 08/15/22 Allergies Allergy/AdvReac Type Severity Reaction Status Date / Time No Known Allergies Allergy Verified 07/04/22 15:05 Review of Systems Review of Systems: CONSTITUTIONAL: Denies body aches, fever, chills, or sweats.+ fatigue EYES: Denies visual changes, redness, or discharge. ENT: Denies otalgia.+ postnasal drip, congestion, rhinorrhea, sore throat CARDIOVASCULAR: Denies chest pain, palpitations, or edema. RESPIRATORY: + cough, shortness of breath with exertion GASTROINTESTINAL: Denies abdominal pain, nausea, vomiting, or diarrhea. GENITOURINARY: Denies dysuria or hematuria. SKIN: Denies rash, itching, or wounds. MUSCULOSKELETAL: Denies back pain, joint pain, or myalgia. NEUROLOGIC: Denies headache, numbness, tingling, or weakness. PSYCH: Denies depression or anxiety. [facility] Past Medical History Medical History Anxiety and depression Depression intolerance to labor, delivered, current hospitalization Obesity and not yet delivered Septal defect, heart UTI (urinary tract infection) Surgical History Surgical History H/O adenoidectomy History of tonsillectomy Family History Family History Grandparent Family history of hypercholesterolemia Hypertension Family history of malignant neoplasm Mother Depression Other Family history of lung cancer Social History Social History Smoking status: Never smoker Second hand tobacco smoke exposure: No Alcohol intake: current Substance use: never Substance use type: does not use Gender identity (if verbalized by the patient): Female Spiritual care concerns: No Comments At time of signature, I have reviewed and agree with nursing past medical, surgical, social and family history unless otherwise noted. Please see nursing chart for further information. There is no relevant family history pertinent to the presenting complaint Exam Narrative: GENERAL: Mildly ill-appearing, well-nourished, and in no acute distress. HEAD: Normocephalic, atraumatic. EYES: EOMI. No redness or drainage. Conjunctivae normal. ENT: Mucous membranes pink and moist. Nares congested. No rhinorrhea. TMs normal bilaterally. Throat mildly erythematous without edema or exudate. Uvula midline. NECK: Normal AROM. Supple. No lymphadenopathy. CHEST: No respiratory distress. Clear to auscultation. HEART: Regular rate and rhythm. No murmur appreciated. Normal peripheral pulses. EXTREMITIES: Normal range of motion. No edema. SKIN: Warm, dry, no rash. Capillary refill normal. Normal skin turgor. NEURO: No focal deficits. Alert and oriented x3. Gait steady. PSYCH: Normal affect. No signs of depression or anxiety. Course Course Level of Care: Express Care Visit Vital Signs Vital signs: Vital Signs Temperature 97.6 F 08/15/22 08:32 Pulse Rate 81 08/15/22 08:32 Respirator
== END 2022-08-15 08:55 | disposition home or self-care (01) ==
PROVIDERS: Emergency Provider Nurse Practitioner
DX: J40 Bronchitis, not specified as acute or chronic (principal); J06.9 Acute upper respiratory infection, unspecified; F41.9 Anxiety disorder, unspecified; F32.A Depression, unspecified
CPT/HCPCS: 99213; G0463

== ENCOUNTER 2022-08-26 18:50 | Emergency (ER) | payer OTHER, SELFPAY ==
--- NOTE | 2022-08-26 18:53 | ED.URI ---
HPI - URI/Sore Throat General Chief Complaint: Upper Respiratory Infection Stated Complaint: SOB/Cough Time Seen by Provider: 08/26/22 18:53 Source: patient Mode of arrival: ambulatory Limitations: no limitations History of Present Illness HPI Narrative: Tamanna is a 32-year-old female patient presenting to the clinic today with complaints of shortness of breath, chest congestion, and cough. She reports she has been sick since sent she was diagnosed with the flu. States that she was seen here on August 15 and was diagnosed with an upper respiratory infection/viral syndrome and was given a prescription for Tessalon Perles and prednisone. She reports that she had taken that with minimal relief and states that she is having some increased shortness of breath as well as a productive cough with some yellow phlegm. She denies any known fever or chills. States that her throat does feel irritated in her ears feel congested. Does have some rib pain due to coughing and rates her pain as a 4/10 currently. MD elicited complaint: cough, nasal congestion and other (Shortness of breath) Related Data Home Medications Medication Instructions Recorded Confirmed medroxyprogesterone 150 mg/mL 150 mg IM [id number] 08/26/22 08/26/22 intramuscular syringe (Depo-Provera) sertraline 100 mg tablet 100 mg PO DAILY 08/26/22 08/26/22 Allergies Allergy/AdvReac Type Severity Reaction Status Date / Time No Known Allergies Allergy Verified 08/26/22 18:59 Review of Systems Review of Systems: Pertinent positives per HPI. Patient denies any fever, chills, rash, headache, visual changes, dizziness, chest pain, palpitations, nausea, vomiting, diarrhea, constipation, abdominal pain, or any urinary issues. [facility] Past Medical History Medical History Anxiety and depression Depression intolerance to labor, delivered, current hospitalization Obesity and not yet delivered Septal defect, heart UTI (urinary tract infection) Surgical History Surgical History H/O adenoidectomy History of tonsillectomy Family History Family History Grandparent Family history of hypercholesterolemia Hypertension Family history of malignant neoplasm Mother Depression Other Family history of lung cancer Social History Social History Smoking status: Never smoker Second hand tobacco smoke exposure: No Alcohol intake: current Substance use: never Substance use type: does not use Gender identity (if verbalized by the patient): Female Spiritual care concerns: No Comments At the time of my signature, I reviewed and agree with the nursing past medical, surgical, social, and family history. There is no relevant family history pertinent to the patient complaint. Exam Narrative: General: Well-developed, obese, in no apparent distress Head: Normocephalic, atraumatic Eyes: Pupils equally round and reactive to light bilaterally, EOM intact, sclera and conjunctive clear, no discharge, lids normal Ears: TMs intact and congested, ear canals clear, no drainage, grossly hearing normal. Nose: Nares patent, clear nasal discharge, moderate inflammation, no sinus tenderness. Mouth: Oral pharynx without lesions or masses, good dentition, MMM. Postnasal drip Neck: Supple, trachea midline, no enlargement of anterior or posterior cervical nodes, no thyroid masses or goiter palpable. Cardio: Regular rate and rhythm, s1 and s2 normal, no murmur appreciated. Resp: Expiratory wheezing in the left upper and mid lobes otherwise clear, no rhonchi, rales, or rubs Course Course Emergency Course: Portions of this record may have been created with voice recognition software. Level of Care: E
[2022-08-26 18:57] VITALS: BP 104/74; PULSE 91; RESP 16; TEMP 36.6; O2SAT 99
[2022-08-26 19:00] VITALS: BP 104/74; PULSE 91; RESP 16; TEMP 36.6; O2SAT 99
== END 2022-08-26 19:10 | disposition home or self-care (01) ==
PROVIDERS: Emergency Provider Nurse Practitioner Family
DX: J40 Bronchitis, not specified as acute or chronic (principal); F41.9 Anxiety disorder, unspecified; F32.A Depression, unspecified
CPT/HCPCS: 99213; G0463

== ENCOUNTER → 2022-11-29 15:22 | Outpatient (CLI) | payer OTHER, SELFPAY ==
--- NOTE | ~2022-11-29 | US_ITS ---
US breast BI complete INDICATION: Mastodynia. Bilateral breast lumps. TECHNIQUE: Dedicated bilateral complete breast ultrasound including all 4 quadrants in the periareola r locations. COMPARISON: No prior studies for comparison. FINDINGS: The breasts are composed of normal heterogeneous echotexture without focal solid or cystic mass. IMPRESSION: 1: Normal bilateral breast ultrasound. BI-RADS CATEGORY 1 - NEGATIVE Reviewed, dictated and finalized at location B.
== END ==
PROVIDERS: PCP Advanced Practice Midwife; Visit Provider Advanced Practice Midwife
DX: N64.4 Mastodynia (principal)
CPT/HCPCS: 76641

== ENCOUNTER 2024-01-20 14:45 | Outpatient (CLI) | payer OTHER, SELFPAY ==
--- NOTE | ~2024-01-20 | US_ITS ---
EXAMINATION: US OB transvaginal INDICATION: with inconclusive viabli TECHNIQUE: Sonography of the pelvis was performed by transabdominal and transvaginal techniques. COMPARISON: 10/19/2020. RESULT: Uterus: 8.5 x 4.6 x 5.7 cm. Anteverted. Homogenous myometrium. Intrauterine gestational sac: Single present. Yolk sac: 0.4 cm . Embryo: Single present. [place] rump length: 0.3 cm, corresponding gestational age 6 weeks, 0 days. G estational heart rate: present 96 bpm. Subgestational hematoma: Absent . Right ovary: 3.2 x 2.5 x 3.9 cm. Vascular flow is present. No adnexal mass. Left ovary: 2.5 x 1.4 x 2.3 cm. Vascular flow is present. No adnexal mass. Pelvis free fluid: None. IMPRESSION: Single, live intrauterine gestation. bradycardia. Consider close clinical and imaging follow-up and specialist referral. Estimated Gestational Age: 6 weeks, 0 days by crown rump length. SHIRA by ultrasound 09/14/2024. Reviewed, dictated and finalized at location K. IMPRESSION: Single, live intrauterine gestation. bradycardia. Consider close clinical and imaging follow-up and specialist referral. Estimated Gestational Age: 6 weeks, 0 days by crown rump length. SHIRA by ultras ound 09/14/2024.
== END 2024-01-20 14:46 ==
LOC: MICIMG 14:46
PROVIDERS: PCP Nurse Practitioner Women's Health; Visit Provider Nurse Practitioner Women's Health
DX: O36.80X0 Pregnancy with inconclusive fetal viability, not applicable or unspecified (principal); Z3A.00 Weeks of gestation of pregnancy not specified
CPT/HCPCS: 76817

== ENCOUNTER 2024-02-02 08:14 | Outpatient (CLI) | payer OTHER, SELFPAY ==
--- NOTE | ~2024-02-02 | US_ITS ---
EXAMINATION: US OB <= 14 weeks fetus DATE: 02/02/2024 08:46 INDICATION: Uncertain dates. TECHNIQUE: Real-time transabdominal pelvic ultrasound was performed. COMPARISON: Ultrasound 01/20/2024 FINDINGS: The uterus measures 10.2 x 5.6 x 8.1 cm. There is an intrauterine gestational sac. A yolk sac is iden tified. The crown rump length measures 1.4 cm, which correlates with an estimated gestational age of 7 weeks and 5 day(s) (+/-) 5 day(s). heart motion is identified measuring 153 beats per minute (bpm) by M-mode Doppler. The ovaries are not visualized. There is no free fluid in the pelvis. IMPRESSION: 1. Single living intrauterine gestation with estimated date of delivery of 09/14/2024 based on the ul trasound from 01/20/2024. Reviewed, dictated and finalized at location A. IMPRESSION: 1. Single living intrauterine gestation with estimated date of delivery of 09/04 based on the ultrasound from 01/20/2024.
== END 2024-02-02 08:15 ==
LOC: MICIMG 08:15
PROVIDERS: PCP Obstetrics & Gynecology Gynecology; Visit Provider Obstetrics & Gynecology Gynecology
DX: Z36.87 Encounter for antenatal screening for uncertain dates (principal)
CPT/HCPCS: 76801

== ENCOUNTER 2024-04-21 15:16 | Outpatient (CLI) | payer OTHER, SELFPAY ==
--- NOTE | ~2024-04-21 | US_ITS ---
EXAMINATION: US OB /maternal detail DATE: 04/21/2024 16:20 INDICATION: anatomic survey. TECHNIQUE: Real-time ultrasound of the pelvis was performed. COMPARISON: Ultrasound 02/02/2024, 01/20/2024 FINDINGS: There is a single living fetus in vertex presentation. The placenta is anterior, 2.5 cm from the cer vix. heart rate is 143 beats per minute (bpm). The amniotic fluid volume is subjectively normal . The cervical length is 2.8 cm on transabdominal images, which is normal. The following biometric data were obtained: Biparietal diameter (BPD): 4.5 cm; head circumference (HC): 16.6 cm; abdominal circumference (AC): 15 .6 cm; femur length (FL): 3.4 cm. These measurements are concordant. Estimated weight is 357 g +/- 54 g, which correlates with the >97th percentile when 09/14/24 is used as estimated date of delivery. As single measurements, these parameters are each equal to the following estimated gestational ages: BPD: 19 weeks 5 days. HC: 19 weeks 2 days. AC: 20 weeks 5 days. FL: 20 weeks 4 days. estimated gestational age based solely on measurements from this exam is 20 weeks 1 days +/- 1 weeks 3 days. The cerebral ventricles, cerebellum, cisterna magna, nuchal fold, lip, and spine are normal. The hear t is normal. The diaphragm, stomach, kidneys, and bladder are normal. There are two umbilical arterie s to yield a 3-vessel cord. The cord insertion is normal. IMPRESSION: 1. Single living fetus in vertex presentation. 2. Large for gestational age. Estimated weight is 357 g +/- 54 g, which correlates with the >9 7th percentile when 09/14/24 is used as estimated date of delivery. This date was set by ultrasound on 01/20/2024. 3. Normal anatomic survey. Reviewed, dictated and finalized at location A. IMPRESSION: 1. Single living fetus in vertex presentation. 2. Large for gestational age. Estimated weight is 357 g +/- 54 g, which correlates with the >97th percentile when 09/14/24 is used as estimated date of delivery. This date was set by ultrasound on 01/20/2024. 3. Normal anatomic survey.
== END 2024-04-21 15:17 | disposition home or self-care (01) ==
LOC: MICIMG 15:18
PROVIDERS: PCP Advanced Practice Midwife; Visit Provider Advanced Practice Midwife
DX: Z36.9 Encounter for antenatal screening, unspecified (principal)
CPT/HCPCS: 76805

== ENCOUNTER 2024-05-17 15:17 | Outpatient (CLI) | payer OTHER, SELFPAY ==
--- NOTE | ~2024-05-17 | US_ITS ---
EXAMINATION: US OB follow up DATE: 05/17/2024 15:39 INDICATION: Assess growth during second trimester TECHNIQUE: Real-time ultrasound of the pelvis was performed. The interpreting radiologist was not pre sent for the study. COMPARISON: None. FINDINGS: There is a single living fetus in vertex presentation. The placenta is anterior and not low-lying. N ormal cervical length measuring 3.9 cm. heart rate is 153 beats per minute (bpm). The amniotic fluid index is 19.7 cm, which is normal (5th%-95%: 9.7-21.6 cm at 23 weeks estimated gestational age ). The following biometric data were obtained: BPD: 5.9 cm -> 24 weeks 1 days Head circumference: 21.3 cm -> 23 weeks 3 days Abdominal circumference: 19.3 cm -> 24 weeks 0 days Femur length: 4.2 cm -> 23 weeks 6 days These measurements are concordant. Head circumference to abdominal circumference ratio: 1.10 (normal range 1.05-1.21). Estimated weight: 640 g (+/-) 96 g or 1 lbs. 7 oz. (+/-) 3 oz. IMPRESSION: 1. Single living fetus in vertex presentation with heart rate of 153 bpm. 2. Normal amniotic fluid index of 19.7 cm. 3. Estimated weight is 93rdth percentile by Hadlock criteria when 09/15/2024 is used as the clover mated date of delivery (SHIRA). Please correlate with clinical information or earlier ultrasounds for m ost accurate SHIRA. Reviewed, dictated and finalized at location B. TIGRAPHY TEACHER IMPRESSION: 1. Single living fetus in vertex presentation with heart rate of 153 bpm. 2. Normal amniotic fluid index of 19.7 cm. 3. Estimated weight is 93rdth percentile by Hadlock criteria when 09/16/19 25 is used as the estimated date of delivery (SHIRA). Please correlate with clini alonzo information or earlier ultrasounds for most accurate SHIRA.
== END 2024-05-17 15:18 | disposition home or self-care (01) ==
LOC: MICIMG 15:18
PROVIDERS: PCP Obstetrics & Gynecology Gynecology; Visit Provider Obstetrics & Gynecology Gynecology
DX: Z36.2 Encounter for other antenatal screening follow-up (principal)
CPT/HCPCS: 76816

== ENCOUNTER 2024-06-11 10:52 | Outpatient (CLI) | payer OTHER, SELFPAY ==
[2024-06-11 12:21] LABS: Basophils Percent Auto 0.4 % (0.2-1.2); Eosinophils Absolute Auto 0.1 K/mm3 (0-0.3); Hematocrit 33.8 % (37.0-47.0); Hemoglobin 11.5 g/dL (12.0-15.0); Immature Granulocyte Absolute 0.09 K/mm3 (0.00-0.031); Immature Granulocyte Percent A 0.9 % (0-0.5); Lymphocytes Absolute Auto 1.65 K/mm3 (0.9-3.2); Lymphocytes Percent Auto 16.6 % (18.3-44.2); Mean Corpuscular Hemoglobin 29.7 pg (26-34); Mean Corpuscular Volume 87.3 fl (80-100); Mean Platelet Volume 9.8 fl (7.4-10.4); Monocytes Absolute Auto 0.4 K/mm3 (0.1-0.6); Monocytes Percent Auto 4.1 % (2.6-8.5); Neutrophils Absolute Auto 7.6 K/mm3 (1.3-6.7); Platelet Count Result 252 k/mm3 (150-375); Red Blood Count 3.87 M/mm3 (4.2-5.4); Red Cell Distribution Width 13.3 % (11.5-14.5); White Blood Count 9.9 K/mm3 (4.5-10.0)
[2024-06-11 12:34] LABS: Glucose 1 Hour PP 50gm Dose 148 mg/dL
[2024-06-11 13:11] LABS: Rubella IgG Antibody 8.5 IU/ML
[2024-06-11 13:13] LABS: HIV 1/2 Ab P24 Ag Result Negative (Negative)
[2024-06-11 13:31] LABS: Hepatitis C Virus Antibody Negative (Negative); Rapid Plasma Reagin Non-Reactive (NonReactive)
== END 2024-06-11 10:53 | disposition home or self-care (01) ==
LOC: ANHLAB 10:54
PROVIDERS: PCP Family Medicine; Visit Provider Nurse Practitioner Obstetrics & Gynecology
DX: Z34.90 Encounter for supervision of normal pregnancy, unspecified, unspecified trimester (principal)
CPT/HCPCS: 36415; 82947; 85025; 86592; 86703; 86762; 86787; 86803; 86850; G0432

== ENCOUNTER 2024-06-17 06:59 | Outpatient (CLI) | payer OTHER, SELFPAY ==
[2024-06-17 07:30] LABS: Glucose Fasting Gestational 88 mg/dL (>/=95)
[2024-06-17 09:51] LABS: Glucose 1 Hour Gest 155 mg/dL (>/=180)
[2024-06-17 10:10] LABS: Glucose 2 Hour Gest 139 mg/dL (>/= 155)
[2024-06-17 10:53] LABS: Glucose 3 Hour Gest 118 mg/dL (>/=140)
== END 2024-06-17 07:00 | disposition home or self-care (01) ==
LOC: ANHLAB 07:01
PROVIDERS: PCP Family Medicine; Visit Provider Nurse Practitioner Obstetrics & Gynecology
DX: O99.810 Abnormal glucose complicating pregnancy (principal); Z3A.00 Weeks of gestation of pregnancy not specified
CPT/HCPCS: 36415; 82951; 82952

== ENCOUNTER 2024-06-30 15:06 | Emergency (ER) | payer OTHER, SELFPAY ==
--- NOTE | ~2024-06-30 | XR_ITS ---
CHEST RADIOGRAPH CLINICAL HISTORY: productive cough . COMPARISON: None TECHNIQUE: Single portable view of the chest. FINDINGS Right atrial enlargement. The remainder of the cardiomediastinal silhouette is otherwise unremarkable. Peribronchial thickening detected bilaterally. The lungs are otherwise clear Visualized osseous structures and soft tissues are unremarkable. IMPRESSION: Peribronchial thickening, without focal infiltrate or effusion. Reviewed, dictated and finalized at location A. LEAD DEVELOPER
[2024-06-30 15:09] VITALS: BP 137/73; PULSE 85; RESP 20; TEMP 36.3; O2SAT 99
--- NOTE | 2024-06-30 15:36 | ED_ITS ---
HPI - URI/Sore Throat General Chief Complaint: Upper Respiratory Infection Stated Complaint: sob, 30 wks preg Time Seen by Provider: 06/30/24 15:27 Source: patient Mode of arrival: ambulatory Limitations: no limitations History of Present Illness HPI Narrative: This is a 34 year old female that presents to the ER for cold symptoms. Present over the last 4 days. Reports cough, congestion. Reports when she takes a deep breath she has coughing fits. Reports she inhaled a piece of corn prior to onset of her symptoms. Denies fevers. Related Data Home Medications ?Medication ?Instructions ?Recorded ?Confirmed ?Last Taken ?Type sertraline 100 mg tablet 100 mg PO DAILY 08/26/22 06/25/24 Unknown History vitamin#30 30 mg iron-10 cap PO 06/11/24 06/25/24 Unknown History mg iron-folic acid 1 mg-omg3 capsule Allergies Allergy/AdvReac Type Severity Reaction Status Date / Time No Known Allergies Allergy Verified 06/25/24 08:24 Review of Systems Review of Systems: CONSTITUTIONAL: Denies fever ENT: Reports congestion CARDIOVASCULAR: Denies chest pain RESPIRATORY: Reports cough and dyspnea. All systems reviewed & are unremarkable except as noted in HPI and below PMFSH Past Medical History Medical History Insulin resistance intolerance to labor, delivered, current hospitalization and not yet delivered Obesity Septal defect, heart Anxiety and depression Depression UTI (urinary tract infection) Surgical History Surgical History [place] teeth removed H/O: History of colposcopy H/O adenoidectomy History of tonsillectomy Family History Family History Grandparent Family history of hypercholesterolemia Hypertension Family history of malignant neoplasm Mother Skin cancer Anxiety Depression Father Depression Grandparent Acute myocardial infarction Grandparent Hyperthyroidism Sibling Depression Other Family history of lung cancer Social History Social History Smoking status: Never smoker Second hand tobacco smoke exposure: No Alcohol intake: current Substance use: never Substance use type: does not use Lack of Transportation: No Lack of Food: Never True Current Housing: I Have Housing Concerned About Future Housing: No Difficulty Paying Gas/Electric Bills: No Difficulty Paying for Meds: No Currently Unemployed: No Education: Bachelor's Degree Difficulty w/ Childcare or Family Care: No Living arrangements: with family Occupation/Education: occupation Gender identity (if verbalized by the patient): Female Spiritual care concerns: No Agree to blood products: Yes Exam Narrative: GENERAL: Well-appearing, well-nourished, and in no acute distress. HEAD: Normocephalic, atraumatic. EYES: EOMI. ENT: Nares clear, no rhinorrhea or epistaxis. Mucous membranes moist. Oropharynx without tonsillar hypertrophy exudate or other lesions. Bilateral TMs pearly lopez non-bulging NECK: Supple. No adenopathy or masses. CHEST: Clear to auscultation. No respiratory distress. No wheezes rales or rhonchi HEART: Regular rate and rhythm. No murmur heard. Normal peripheral pulses. EXTREMITIES: Normal range of motion. No edema. SKIN: Warm, dry, no rash. NEURO: No focal deficits. Alert and oriented x3. PSYCH: Normal mood and affect Course Course Emergency Course: Patient updated on her workup and agrees with plan of care Vital Signs Vital signs: Vital Signs Temperature 97.3 F L 06/30/24 15:09 Pulse Rate 85 06/30/24 15:09 Respiratory Rate 20 06/30/24 15:09 Blood Pressure 137/73 06/30/24 15:09 Pulse Oximetry 99 06/30/24 15:09 Oxygen Delivery Autopap 06/30/24 15:09 Temperature 97.3 F L 06/30/24 15:09 Pulse Rate 85 06/30/24 15:09 Respiratory Rate 20 06/30/24 15:09 Blood Pressure 137/73 06/30/24 15:09 Pulse Oximetry 99 06/30/24 15:09 Oxygen Delivery Autopap 06/30/24 15:09 MDM - URI/Sore Throat MDM Narrative Medical decision making narrative: Patient presents the emergency department for cold symptoms ongoing over the last 4 days. Reporting productive cough. She is afebrile and nontoxic appearing. Lung sounds are bronchial, but no focal wheezing or rales. Influenza and COVID screens are negative. RSV is positive. Chest x-ray showing peribronchial thickening, no focal infiltrate or effusion. Patient is currently 30 weeks . Has been following with OB. Is feeling baby moving, no related concerns. heart tones are normal. Will be started on steroid taper and given albuterol if needed for acute bronchitis. She was given warnings to return to the ER Differential Diagnosis Differential diagnosis: Likely upper respiratory infection, sinusitis, viral infection, bronchitis, influenza and other (RSV, COVID) Lab Data Attestation: I reviewed the patient's lab results. Labs: Lab Results 06/30/24 Range/Units 15:37 Influenza A (RT-PCR) Negative (Negative) Influenza B (RT-PCR) Negative (Negative) RSV (RT-PCR) Positive A (Negative) SARS-CoV-2 RNA (RT-PCR) Negative (Negative) Imaging Data Radiologist's impression: ITS Impressions Chest X-Ray 06/30/24 17:06 IMPRESSION: Peribronchial thickening, without focal infiltrate or effusion. Critical Care Time Critical Care Time Critical Care Time: No Discharge Plan Discharge Clinical Impression: RSV (respiratory syncytial virus infection) Qualifiers: RSV infection type: acute bronchitis Qualified Code(s): J20.5 - Acute bronchitis due to respiratory syncytial virus Patient Disposition: Home, Self-Care Condition: Stable Instructions: Acute Bronchitis (ED), RSV (Respiratory Syncytial Virus) Infection (ED) Additional Instructions: Return to the emergency department for worsening symptoms, or any other concerns Remain well-hydrated, get plenty of rest. Take Tylenol for fever or pain as needed. Flonase for nasal congestion. Zyrtec for runny nose. Take steroid taper as prescribed. Albuterol if needed for shortness of breath, persistent cough Follow up with your OB and primary doctor Patient Language: Sinhala Prescriptions: New methylprednisolone 4 mg tablets,dose pack See Rx Instructions .ROUTE .COMPLEX Qty: 21 0RF Rx Instructions: orally per package directions albuterol sulfate 90 mcg/actuation HFA aerosol inhaler 2 puff inhalation QID PRN (Reason: shortness of breath or wheezing) Qty: 8.5 0RF No Action sertraline 100 mg tablet 100 mg PO DAILY metformin 500 mg tablet 500 mg PO BID Qty: 30 0RF PNV #[id number] 30 mg iron-10 mg iron-1 mg capsule PO Follow-up/Referrals: Cynthia Valiente MD [Primary Care Provider] -
[2024-06-30 16:23] LABS: Influenza A QL RT-PCR Negative (Negative); Influenza B QL RT-PCR Negative (Negative); RSV RNA, RT-PCR Positive (Negative); SARS-CoV-2 RNA PCR Negative (Negative)
--- OUTSIDE RECORDS SUMMARY | 2024-07-07 18:06 | XMS_ITS | Encounter Summary ---
Author Organization [facility] Address [address] [place] [address] Care Team Providers Care Otolaryngology Rep Name Role Phone Unavailable Primary Care Provider Unavailabl e Reason for Visit * Radiology Services (Routine) - Closed Specialty Diagnoses / Procedures Referred By Contac t Referred To Contact Diagnoses Encounter for ultrasound to assess growth Procedures US OB DETAIL SINGLE GEST US OB FOLLOW UP PER FETUS [facility] Amna Sorensen MD [address] [address] [facility] [address] [place] [address] Referral ID Status Reason Start Date Expiration Date Visits Re quested Visits Authorized [id number] Closed 06/14/2024 07/15/2025 1 1 Encounter Details Date Type Department Care Team (Latest Contact Info) Description 06/21/2024 10:15 AM DRAWING CHECKER - 06/21/2024 11:59 PM DRAWING CHECKER Hospital Encounter [facility] [address] [place] [address] Amna Sorensen MD [address] [address] Discharge Disposition: Home or Self Care Social History Tobacco Use Types Packs/Day Years Used Date Smoking Tobacco: Never Assessed Sex and Gender Information Value Date Recorded Sex Assigned at Not on file Gender Identity Not on file Sexual Orientation Not on file documented as of this encounter Last Filed Vital Signs Vital Sign Reading Time Taken Comments Blood Pressure - - Pulse - - Temperature - - Respiratory Rate - - Oxygen Saturation - - Inhaled Oxygen Concentration - - Weight 112.9 kg (249 lb) 06/21/2024 10:28 AM DRAWING CHECKER Height 170.2 cm (5' 7 ) 06/21/2024 10:28 AM DRAWING CHECKER Body Mass Index 39 06/21/2024 10:28 AM DRAWING CHECKER documented in this encounter Plan of Treatment Upcoming Encounters Date Type Department Care Team (Late st Contact Info) Description 07/22/2024 3:30 PM DRAWING CHECKER Appointment [facility] [address] [place] [address] Fernando Alvarenga MD [address] [facility] [place] [address] documented as of this encounter Procedures Procedure Name Priority Date/Time Associated Diagnosis Comments US OB DETAIL SINGLE GEST Routine 06/21/2024 11:08 AM DRAWING CHECKER Encounter for ultrasound to assess growth documented in this encounter Results * US OB DETAIL SINGLE GEST (06/21/2024 11:08 AM DRAWING CHECKER) Anatomical Region Laterality Modality Pelvis Ultrasound 06/21/2024 10:3 0 AM DRAWING CHECKER Narrative 06/21/2024 1:22 PM DRAWING CHECKER STL COMP ----- Pat. Name: TAMANNA JEONG Study Date: 06/21/2024 10:30am Pat. NO: [id number] Referring ??MD: AMNA SORENSEN MD Site: [facility] [employer]: Azalia Calderon RDMS : 1990 Age: 34 ----- INDICATION ----- Anatomy Survey ? low risk NIPT Maternal Obesity (BMI<40) Complicating Uterine Size-Date Discrepancy ?LGA on outside scan Maternal Care for Low Transverse Scar from ? x 1 Previous Delivery (Previous ) Anxiety, Maternal ?sertraline Screening, Other Specified ? insulin resistant / metformin CODING ----- Diagnoses ? Z3A.27: Weeks of gestation ?Z36.89: Encounter to establish gestational age using ultrasound ?O26.842: Uterine size-date discrepancy complicating ?O99.212: Obesity complicating ?O99.342: Other mental disorders complicating ?O34.211: Maternal care for low transverse scar from previous delivery ?Z36.3: Encounter for screening for malformations Procedures ?29224: Ultrasound, uterus, real time with image documentation, and maternal evaluation ?plus detailed anatomic examination, transabdominal approach HISTORY ----- OB History ? 5. Para 1 ?T1A3L1 MATERNAL ASSESSMENT ----- Physical Exam ? Weight 113 kg. Initial weight 107 kg, 236 lb. BMI 40.19 kg/m??. Initial BMI 38.09 kg/m??. Weight gain 6 kg, ?13 lb METHOD ----- Transabdominal ultrasound examination ----- Werner . Number of fetuses: 1 DATING ----- Method of dating: based on stated SHIRA GA by prior assessment 27 w + 6 d SHIRA by prior assessment: 09/14/2024 Ultrasound examination on: 06/21/2024 GA by U/S based upon: AC, BPD, EFW, Femur, HC GA by U/S 29 w + 5 d SHIRA by U/S: 09/01/2024 Assigned: based on stated SHIRA, selected on 06/21/2024 Assigned GA 27 w + 6 d Assigned SHIRA: 09/14/2024 BIOMETRY ----- BPD ?74.8 ? mm ? 30w 0d ? 94% ?Hadlock OFD ?95.5 ? mm ? 30w 6d ? 98% ?Carlin HC ? 270.9 ?mm ? 29w 4d ? 73% ?Hadlock Cerebellum tr ?32.7 ? mm ? 29w 2d ? 80% ?Lopez AC ? 266.2 ?mm ? 30w 5d ? 98% ?Hadlock Femur ?54.7 ? mm ? 28w 6d ? 66% ?Hadlock Humerus ?49.8 ? mm ? 29w 1d ? 80% ?Carlin HC / AC ?1.02 ?10% ? Nicolaides Weight Calculation: EFW ? 1,489 ? g ? 29w 4d ?97% ?Hadlock EFW (lb,oz) ? 3 lb 5 ?oz EFW by ?Hadlock ([id number]) Head / Face / Neck Biometry: Special Service Officer ? 6.3 ? mm CM ? 7.3 ? mm ? 69% ?Nicolaides Extremities / Bony Struc Biometry: FL / BPD ?0.73 FL / HC ? 0.20 FL / AC ? 0.21 GENERAL EVALUATION ----- Cardiac activity present. FHR 145 bpm. movements: present. Presentation: cephalic Placenta: Placental site: anterior Umbilical cord: Cord vessels: 3 vessel cord. Insertion site: placental insertion: normal Amniotic fluid: Amount of AF: normal amount. MVP 5.6 cm. VAUGHN 15.7 cm. Q1 0.0 cm, Q2 5.0 cm, Q3 5.6 cm, Q4 5.2 cm ANATOMY ----- Abdomen ? Right kidney: UTD 5.1 mm ?Left kidney: UTD 6.2 mm The following structures appear normal: Head / Neck ? Cranium. Lateral ventricles. Choroid plexus. Midline falx. Cavum septi pellucidi. Cerebellum. Cisterna ?magna. Thalami. Face ?Profile. Palate. Heart / Thorax ?4-chamber view. RVOT view. LVOT view. 3-vessel view. 7-nawnyo-dikollk view. Situs. Aortic arch view. ?Ductal arch view. Superior vena cava. Inferior vena cava. High short axis view. Cardiac rhythm. ?Diaphragm. Abdomen ? Abdominal wall. Stomach. Bladder. Spine ? Cervical spine. Thoracic spine. Lumbar spine. Sacral spine. Extremities / ? Arms. Right hand. Left hand. Legs. Right foot. Left foot. Skeleton The following structures could not be adequately visualized: Face ?Lips. Nose. Orbits. MATERNAL STRUCTURES ----- Cervix ?Visualized ?Approach - Transabdominal Right Ovary ? Normal ?Size 32 mm x 23 mm x 25 mm. Vol 9.2 cm?? Left Ovary ?Suboptimal GROWTH OVERVIEW ----- Exam date ? GA ?BPD (mm) ? HC (mm) ?AC (mm) ? FL (mm) ?HL (mm) ?EFW (g) 06/21/2024 ?27w 6d ?74.8 ?94% ?270.9 ? 73% ?266.2 ?98% ?54.7 ?66% ?49.8 ?80% ? 1,489 ? 97% COMMENT ----- Patient's name and date of were verified by the ornament maker hand before the exam IMPRESSION ----- - Intrauterine at 27w 6d based on the reported dates. - The estimated weight is 1489 g which is at the 97% percentile. - Bilateral renal pelvis dilation. The right measures 5.1 mm and the left measures 6.2 mm. - The rest of the visualized anatomy appears unremarkable to the extent of ultrasound views. - Suboptimal anatomy: nose/lips, orbits - The placenta is anterior without concern for previa or low-lying placenta. - Amniotic fluid amount is normal for gestational age. (MVP of 5.6 cm) - Normal right ovary. Left ovary not visualized. An anatomic survey cannot rule out all abnormalities, including structural, chromosome or genetic. Urinary tract dilation is noted today. Renal pelvis dilation is defined by moderate dilation of the renal pelvis without associated dilated calyces. The renal pelvis is measured in the anteroposterior (AP) plane on cross section and an AP pelvic diameter exceeding 4 prior to 28-30 weeks, and greater than 7 mm after 28-30 weeks is considered elevated. This occurs in 1% to 3% of pregnancies. In most cases, isolated urinary tract dilation is physiologic. However, it may be secondary to mild reflux or a ureteropelvic junction syndrome. The likelihood of dilation being associated with substantial morbidity requiring surgery increases with the degree of pelvic dilation. This has been associated with a soft marker for aneuploidy however if an isolated finding, aneuploidy is unlikely. Ultrasound has limitations and cannot rule out aneuploidy, genetic abnormalities or assess renal function. Aneuploidy screening can be considered if not previously preformed. We recommended serial surveillance to determine whether the dilation increases with advancing gestational age. evaluation is required with persistent urinary martin dilation. Recommend: Follow up in 4 weeks. Procedure Note Paxton Owusu MD - 06/21/2024 STL COMP ----- OxanaAlessia Name:Ty JEONG Date::30am Pat. NO: [id number] MD:AMNA SORENSEN MD [facility]Azalia Calderon RDMS :1990Age:34 ----- INDICATION ----- Anatomy Survey low risk NIPT Maternal Obesity (BMI<40) Complicating Uterine Size-Date Discrepancy LGA on outside scan Maternal Care for Low Transverse Scar from x 1 Previous Delivery (Previous ) Anxiety, Maternal sertraline Screening, Other Specified insulin resistant /metformin CODING ----- Diagnoses Z3A.27: Weeks of gestation Z36.89: Encounter to establish gestational ageusing ultrasound O26.842: Uterine size-date discrepancycomplicating O99.212: Obesity complicating O99.342: Other mental disorders complicatingpregnancy O34.211: Maternal care for low transverse scarfrom previous delivery Z36.3: Encounter for screening formalformations Procedures [id number]: Ultrasound, uterus, real time withimage documentation, and maternal evaluation plus detailed anatomic examination,transabdominal approach HISTORY ----- OB History 5. Para 1 T1A3L1 MATERNAL ASSESSMENT ----- Physical Exam Weight 113 kg. Initial weight 107 kg, 236 lb. BMI40.19 kg/m??. Initial BMI 38.09 kg/m??. Weight gain 6 kg, 13 lb METHOD ----- Transabdominal ultrasound examination ----- Werner . Number of fetuses: 1 DATING ----- Method of dating:based on stated SHIRA GA by prior [id number] w + 6 d SHIRA by prior assessment:09/14/2024 Ultrasound examination on:06/21/2024 GA by U/S based upon:AC, BPD, EFW, Femur, HC GA by U/S29 w + 5 d SHIRA by U/S:09/01/2024 Assigned:based on stated SHIRA, selected on 06/21/2024 Assigned GA27 w + 6 d Assigned SHIRA:09/14/2024 BIOMETRY ----- BPD 74.8 mm 30w 0d94% Hadlock OFD 95.5 mm 30w 6d98% Carlin FINNEGAN 270.9 mm 29w 4d73% Hadlock Cerebellum tr 32.7 mm 29w 2d80% John AC 266.2 mm 30w 5d98% Hadlock Femur 54.7 mm 28w 6d66% Hadlock Humerus 49.8 mm 29w 1d80% Carlin HC / AC 1.02 10%Nicolaides Weight Calculation: EFW 1,489 g 29w 4d97% Hadlock EFW (lb,oz) 3 lb 5 oz EFW by Hadlock ([id number]) Head / Face / Neck Biometry: Special Service Officer 6.3 mm CM 7.3 mm 69%Nicolaides Extremities / Bony Struc Biometry: FL / BPD 0.73 FL / HC 0.20 FL / AC 0.21 GENERAL EVALUATION ----- Cardiac activity present. FHR 145 bpm. movements: present.Presentation: cephalic Placenta: Placental site: anterior Umbilical cord: Cord vessels: 3 vessel cord. Insertion site: placentalinsertion: normal Amniotic fluid: Amount of AF: normal amount. MVP 5.6 cm. VAUGHN 15.7 cm. Q10.0 cm, Q2 5.0 cm, Q3 5.6 cm, Q4 5.2 cm ANATOMY ----- Abdomen Right kidney: UTD 5.1 mm Left kidney: UTD 6.2 mm The following structures appear normal: Head / Neck Cranium. Lateral ventricles. Choroid plexus.Midline falx. Cavum septi pellucidi. Cerebellum. Cisterna magna. Thalami. Face Profile. Palate. Heart / Thorax 4-chamber view. RVOT view. LVOT view. 3-vesselview. 2-rdrkkt-xpmctpb view. Situs. Aortic arch view. Ductal arch view. Superior vena cava. Inferiorvena cava. High short axis view. Cardiac rhythm. Diaphragm. Abdomen Abdominal wall. Stomach. Bladder. Spine Cervical spine. Thoracic spine. Lumbar spine.Sacral spine. Extremities / Arms. Right hand. Left hand. Legs. Right foot.Left foot. Skeleton The following structures could not be adequately visualized: Face Lips. Nose. Orbits. MATERNAL STRUCTURES ----- Cervix Visualized Approach - Transabdominal Right Ovary Normal Size 32 mm x 23 mm x 25 mm. Vol 9.2 cm?? Left Ovary Suboptimal GROWTH OVERVIEW ----- Exam date GA BPD (mm) HC (mm) AC (mm) FL(mm) HL (mm) EFW (g) 06/21/2024 27w 6d 74.8 94% 270.9 73% 266.2 98%54.7 66% 49.8 80% 1,489 97% COMMENT ----- Patient's name and date of were verified by the ornament maker hand beforethe exam IMPRESSION ----- - Intrauterine at 27w 6d based on the reported dates. - The estimated weight is 1489 g which is at the 97% percentile. - Bilateral renal pelvis dilation. The right measures 5.1 mm and the leftmeasures 6.2 mm. - The rest of the visualized anatomy appears unremarkable to theextent of ultrasound views. - Suboptimal anatomy: nose/lips, orbits - The placenta is anterior without concern for previa or low-lyingplacenta. - Amniotic fluid amount is normal for gestational age. (MVP of 5.6 cm) - Normal right ovary. Left ovary not visualized. An anatomic survey cannot rule out all abnormalities, includingstructural, chromosome or genetic. Urinary tract dilation is noted today. Renal pelvis dilation is defined bymoderate dilation of the renal pelvis without associated dilated calyces. The renal pelvis is measured in theanteroposterior (AP) plane on cross section and an AP pelvic diameter exceeding 4 prior to 28-30 weeks, and greater than 7 mm [id number] weeks is considered elevated. This occurs in 1% to 3% of pregnancies. In most cases, isolated urinary tract dilation isphysiologic. However, it may be secondary to mild reflux or a ureteropelvic junction syndrome. The likelihood of dilation beingassociated with substantial morbidity requiring surgery increases with the degree of pelvic dilation. This hasbeen associated with a soft marker for aneuploidy however if an isolated finding, aneuploidy is unlikely. Ultrasound has limitations and cannot rule out aneuploidy, geneticabnormalities or assess renal function. Aneuploidy screening can be considered if not previously preformed. We recommended serialsurveillance to determine whether the dilation increases with advancing gestational age. evaluation is required withpersistent urinary martin dilation. Recommend: Follow up in 4 weeks. Amna Sorensen MD US ORDERABLES documented in this encounter Visit Diagnoses Diagnosis Encounter for ultrasound to assess growth documented in this encounter
--- OUTSIDE RECORDS SUMMARY | 2024-07-07 18:06 | XMS_ITS | Encounter Summary ---
Author Organization [facility] Address [address] [place] [address] Care Team Providers Care Visual Training Aide Name Role Phone Unavailable Primary Care Provider Unavailabl e Reason for Referral * Radiology Services (Routine) - Closed Specialty Diagnoses / Procedures Referred By Christel meier Referred To Contact Diagnoses Encounter for screening for malformation Congenital heart defect Procedures US OB DETAIL SINGLE Venus Costello MD [address] [place] [address] Referral ID Status Reason Start Date Expiration Date Visits Re quested Visits Authorized [id number] Closed 01/12/2021 02/12/2022 1 1 Reason for Visit * Radiology Services (Routine) - Closed Specialty Diagnoses / Procedures Referred By Christel meier Referred To Contact Diagnoses Encounter for screening for malformation Congenital heart defect Procedures US OB DETAIL SINGLE Venus Costello MD [address] [place] [phone] Referral ID Status Reason Start Date Expiration Date Visits Re quested Visits Authorized [id number] Closed 01/12/2021 02/12/2022 1 1 Encounter Details Date Type Department Care Team (Late st Contact Info) Description 01/29/2021 12:56 PM CDT - 01/29/2021 11:59 PM CDT Hospital Encounter [facility] Maternal and Health [facility] [address] [place] [address] Venus Ferrell MD [address] [place] [phone] Discharge Disposition: Home or Self Care Social History Tobacco Use Types Packs/Day Years Used Date Smoking Tobacco: Never Assessed Sex and Gender Information Value Date Recorded Sex Assigned at Not on file Gender Identity Not on file Sexual Orientation Not on file COVID-19 Exposure Response Date Recorded In the last month, have you been in contact with someone who was confirmed or suspected to have Coronavirus / COVID-19? No / Unsure 01/29/2021 12:51 PM CDT documented as of this encounter Plan of Treatment Upcoming Encounters Date Type Department Care Team (Late st Contact Info) Description 07/22/2024 3:30 PM C PYTHON DEVELOPER Appointment [facility] [address] [place] [address] Fernando Alvarenga MD [address] [facility] [address] [place] [address] documented as of this encounter Procedures Procedure Name Priority Date/Time Associated Diagnosis Comments US OB DETAIL SINGLE GEST Routine 01/29/2021 2:22 PM CDT Encounter for screening for malformation Congenital heart defect documented in this encounter Results * US OB DETAIL SINGLE GEST (01/29/2021 2:22 PM CDT) Anatomical Region Laterality Modality Pelvis Ultrasound 01/29/2021 1:23 PM CDT Narrative 01/29/2021 2:11 PM CDT STL COMP ----- Pat. Name: TAMANNA JEONG Study Date: 01/29/2021 1:23pm Pat. NO: [id number] Referring ??: VENUS FERRELL MD Site: [facility] Director: Jocelyn Conteh : 1990 Age: 30 ----- INDICATION ----- Family History of Congenital Heart Defect ?Pt born with VSD, Low Risk NIPT Low-Lying Placenta without Hemorrhage ?Documented at 18 week scan Maternal Obesity (bmi greater than 30 but bmi less than 40) CODING ----- Diagnoses ? O35.2XX0: Mat care for (suspected) hereditary dis in fetus. Unspecified Fetus ?O44.02: Placenta previa specified as without hemorrhage ?O99.212: Obesity complicating ?E66.8: Other obesity ?Z3A.22: Weeks Gestation of Procedures ?58624: OB with Detail (Comprehensive) HISTORY ----- OB History ? 2. Para 0 ?Miscarriages 1 ?A1 MATERNAL ASSESSMENT ----- Physical Exam ? Weight 98 kg. BMI 34.70 kg/m?? METHOD ----- Transabdominal ultrasound examination ----- Werner . Number of fetuses: 1 DATING ----- Method of dating: based on stated SHIRA GA by prior assessment 22 w + 6 d SHIRA by prior assessment: 05/29/2021 Ultrasound examination on: 01/29/2021 GA by U/S based upon: AC, BPD, EFW, Femur, HC GA by U/S 23 w + 4 d SHIRA by U/S: 05/24/2021 Assigned: based on stated SHIRA, selected on 01/29/2021 Assigned GA 22 w + 6 d Assigned SHIRA: 05/29/2021 BIOMETRY ----- BPD ?57.5 ? mm ? 23w 4d ? 73% ?Hadlock HC ? 207.8 ?mm ? 22w 6d ? 36% ?Hadlock Cerebellum tr ?23.7 ? mm ? 22w 5d ? 46% ?Lopez AC ? 196.0 ?mm ? 24w 2d ? 84% ?Hadlock Femur ?41.5 ? mm ? 23w 3d ? 60% ?Hadlock Humerus ?38.2 ? mm ? 23w 4d ? 60% ?Carlin HC / AC ?1.06 ?8% ? Nicolaides Weight Calculation: EFW ?627 ? g ?23w 4d ?83% ?Hadlock EFW (lb,oz) ?1 lb 6 ?oz EFW by ?Hadlock (HC-AC-FL) Head / Face / Neck Biometry: CM ? 7.0 ? mm ? 85% ?Nicolaides Outer IOD ? 37.4 ?mm ? 23w 6d ?45% ?Carlin Extremities / Bony Struc Biometry: FL / BPD ?0.72 FL / HC ? 0.20 FL / AC ? 0.21 Tibia ? 37.1 ?mm ? 23w 6d ?84% ?Carlin MCKINNEY EVALUATION ----- Cardiac activity present. FHR 142 bpm. movements: present. Presentation: Variable Placenta: Placental site: anterior, not low lying 3.08 cm from cervical os Umbilical cord: Cord vessels: 3 vessel cord. Insertion site: placental insertion: normal Amniotic fluid: Amount of AF: normal amount. MVP 5.3 cm ANATOMY ----- The following structures appear normal: Head / Neck ? Cranium. Lateral ventricles. Choroid plexus. Midline falx. Cavum septi pellucidi. Cerebellum. Cisterna ?magna. Thalami. Face ?Lips. Profile. Nose. Palate. Orbits. Heart / Thorax ?4-chamber view. RVOT view. LVOT view. 3-vessel view. Situs. Aortic arch view. Ductal arch view. Superior ?vena cava. Inferior vena cava. High short axis view. Cardiac rhythm. ?Diaphragm. Abdomen ? Abdominal wall. Stomach. Kidneys. Bladder. Spine ? Cervical spine. Thoracic spine. Lumbar spine. Sacral spine. Extremities / ? Arms. Right hand. Left hand. Legs. Right foot. Left foot. Skeleton The following structures could not be adequately visualized: Heart / Thorax ?4-ttsrnx-llldwmo view. sex: male. MATERNAL STRUCTURES ----- Cervix ?Visualized ?Approach - Transabdominal: Cervical length 44.3 mm Right Ovary ? Normal ?Size 23 mm x 15 mm x 15 mm. Vol 2.6 cm?? Left Ovary ?Suboptimal COMMENT ----- Patient's name and date of were verified by the auto air conditioning mechanic before the exam IMPRESSION ----- 1. Single living fetus with a gestational age of 22w 6d based on the reported clinical dates. 2. Current growth parameters are consistent with the stated EDC. The fetus is appropriate for gestational age in size at the 83% (627 g). 3. Detailed anatomic survey is unremarkable. No gross structural abnormalities noted. No sonographic markers for aneuploidy noted. 4. Amniotic fluid volume is normal for gestational age. 5. The cervical length is within normal range for gestational age. 6. The right ovary appear normal in size and shape. The left ovary is not visualized. 7. Placenta is anterior, not low lying . No previa. Comments: The presence of a normal anatomic survey does not rule-out genetic, chromosomal or structural anomalies. The current normal ultrasound eliminates the majority of important structural defects. Recommendations: - Given maternal history of congenital heart defect (VSD), suggest screening echocardiogram at 24-26 wekes. Thank you for allowing us to participate in the care of this patient. Procedure Note Letha Schaefer MD - 01/29/2021 STL COMP ----- Pat. Name:Ty JEONG Date::23pm Pat. NO: [id number] MD:VENUS FERRELL MD [facility] :1990Age:30 ----- INDICATION ----- Family History of Congenital Heart Defect Pt born with VSD, LowRisk NIPT Low-Lying Placenta without Hemorrhage Documented at 18 weekscan Maternal Obesity (bmi greater than 30 but bmi less than 40) CODING ----- Diagnoses O35.2XX0: Mat care for (suspected) hereditary disin fetus. Unspecified Fetus O44.02: Placenta previa specified as withouthemorrhage O99.212: Obesity complicating E66.8: Other obesity Z3A.22: Weeks Gestation of Procedures 19200: OB with Detail (Comprehensive) HISTORY ----- OB History 2. Para 0 Miscarriages 1 A1 MATERNAL ASSESSMENT ----- Physical Exam Weight 98 kg. BMI 34.70 kg/m?? METHOD ----- Transabdominal ultrasound examination ----- Werner . Number of fetuses: 1 DATING ----- Method of dating:based on stated SHIRA GA by prior owqtalsmyt91 w + 6 d SHIRA by prior assessment:05/29/2021 Ultrasound examination on:01/29/2021 GA by U/S based upon:AC, BPD, EFW, Femur, HC GA by U/S23 w + 4 d SHIRA by U/S:05/24/2021 Assigned:based on stated SHIRA, selected on 01/29/2021 Assigned GA22 w + 6 d Assigned SHIRA:05/29/2021 BIOMETRY ----- BPD 57.5 mm 23w 4d73% Hadlock HC 207.8 mm 22w 6d36% Hadlock Cerebellum tr 23.7 mm 22w 5d46% Lopez AC 196.0 mm 24w 2d84% Hadlock Femur 41.5 mm 23w 3d60% Hadlock Humerus 38.2 mm 23w 4d60% Carlin HC / AC 1.06 8%Nicolaides Weight Calculation: EFW 627 g 23w 4d 83%Hadlock EFW (lb,oz) 1 lb 6 oz EFW by Hadlock (HC-AC-FL) Head / Face / Neck Biometry: CM 7.0 mm 85%Susan Outer IOD 37.4 mm 23w 6d 45%Carlin Extremities / Bony Struc Biometry: FL / BPD 0.72 FL / HC 0.20 FL / AC 0.21 Tibia 37.1 mm 23w 6d 84%Carlin GENERAL EVALUATION ----- Cardiac activity present. FHR 142 bpm. movements: present.Presentation: Variable Placenta: Placental site: anterior, not low lying 3.08 cm from cervicalos Umbilical cord: Cord vessels: 3 vessel cord. Insertion site: placentalinsertion: normal Amniotic fluid: Amount of AF: normal amount. MVP 5.3 cm ANATOMY ----- The following structures appear normal: Head / Neck Cranium. Lateral ventricles. Choroid plexus.Midline falx. Cavum septi pellucidi. Cerebellum. Cisterna magna. Thalami. Face Lips. Profile. Nose. Palate. Orbits. Heart / Thorax 4-chamber view. RVOT view. LVOT view. 3-vesselview. Situs. Aortic arch view. Ductal arch view. Superior vena cava. Inferior vena cava. High short axisview. Cardiac rhythm. Diaphragm. Abdomen Abdominal wall. Stomach. Kidneys. Bladder. Spine Cervical spine. Thoracic spine. Lumbar spine.Sacral spine. Extremities / Arms. Right hand. Left hand. Legs. Right foot.Left foot. Skeleton The following structures could not be adequately visualized: Heart / Thorax 6-mimudw-drgcxxr view. sex: male. MATERNAL STRUCTURES ----- Cervix Visualized Approach - Transabdominal: Cervical length 44.3mm Right Ovary Normal Size 23 mm x 15 mm x 15 mm. Vol 2.6 cm?? Left Ovary Suboptimal COMMENT ----- Patient's name and date of were verified by the auto air conditioning mechanic beforethe exam IMPRESSION ----- 1. Single living fetus with a gestational age of 22w 6d based on thereported clinical dates. 2. Current growth parameters are consistent with the stated EDC. The fetusis appropriate for gestational age in size at the 83% (627 g). 3. Detailed anatomic survey is unremarkable. No gross structuralabnormalities noted. No sonographic markers for aneuploidy noted. 4. Amniotic fluid volume is normal for gestational age. 5. The cervical length is within normal range for gestational age. 6. The right ovary appear normal in size and shape. The left ovary is notvisualized. 7. Placenta is anterior, not low lying . No previa. Comments: The presence of a normal anatomic survey does not rule-outgenetic, chromosomal or structural anomalies. The current normal ultrasound eliminates the majority of important structuraldefects. Recommendations: - Given maternal history of congenital heart defect (VSD), suggestscreening echocardiogram at 24-26 wekes. Thank you for allowing us to participate in the care of this patient. Venus Ferrell MD US ORDERABLES documented in this encounter Visit Diagnoses Diagnosis Encounter for screening for malformation Congenital heart defect Unspecified congenital anomaly of heart documented in this encounter
--- OUTSIDE RECORDS SUMMARY | 2024-07-07 18:06 | XMS_ITS | Encounter Summary ---
Author Organization [facility] Address [address] [facility] [place] [address] Care Team Providers Care Ice Cream Dispenser Name Role Phone Homa Mckeon MD Primary Care Provider Encounter Details Date Type Department Care Team (Latest Contact Info) Description 03/26/2021 Travel Social History Tobacco Use Types Packs/Day Years Used Date Smoking Tobacco: Never Comments Yes Sex and Gender Information Value Date Recorded Sex Assigned at Female 04/10/2021 8:10 AM CDT Gender Identity Female 04/10/2021 8:10 AM CDT Sexual Orientation Bisexual 04/10/2021 8: 10 AM CDT documented as of this encounter Plan of Treatment Not on file documented as of this encounter Visit Diagnoses Not on filedocumented in this encounter Care Teams Ice Cream Dispenser Relationship Specialty Start Date End Date Homa Mckeon MD [address] [place] [id number] PCP - General Family Medicine 09/16/16 03/26/21 documented as of this encounter
--- OUTSIDE RECORDS SUMMARY | 2024-07-07 18:06 | XMS_ITS | Referral Summary ---
Author Organization [facility] [employer] Address [address] [facility] [place] [address] Care Team Providers Care Metal Furrer Name Role Phone Homa Mckeon MD Primary Care Provider [phone] Homa Mckeon MD Unavailable Source Comments [facility] [employer],non-owned Affiliates and Associated Physician Practices is amultiple site organization consisting of ambulatory clinics and hospital sitesin [place], [place], [place] and [place]. This disclosure is being madepursuant to the Care Everywhere program and may not contain all information available regarding this patient. Last updated 18.[facility] [employer] Allergies No known active allergies Medications * Be aware that medications may not be up to date on this document. Alwaysverify current medications with the patient. Medication Sig Dispensed Refills Start Date End Date Status BuPROPion HCl (WELLBUTRIN PO) Active Levonorgestrel (MIRENA, 52 MG, IU) Active diphenhydramine 12.5mg/ml, 30ml,; visc lidocaine 2%, 30ml,; maalox, 30ml, (MIRACLE MOUTHWASH) SUSPIndications:A cute pharyngitis, unspecified etiology 1:1:1 solution of viscous lidocaine 2%, Maalox, diphenhydramine 12.5mg/5ml elixir 90 mL 09/16/2016 Active buPROPion XL 24hr (WELLBUTRIN-XL) 300 MG tablet Take 1 Tab by mouth once daily 30 tablet 11 01/13/2016 Active norgestimate-ethi nyl estradiol (ORTHO-CYCLEN; MONONESSA; PREVIFEM; SPRINTEC) 0.25-35 MG-MCG tablet Take 1 Tab by mouth once daily 1 packet 11 01/13/2016 Active Active Problems Problem Noted Date Diagnosed Date Size of fetus inconsistent with dates in third t rimester Social History Tobacco Use Types Packs/Day Years Used Date Smoking Tobacco: Never Sex and Gender Information Value Date Recorded Sex Assigned at Female 04/10/2021 8:10 AM CDT Gender Identity Female 04/10/2021 8:10 AM CDT Sexual Orientation Bisexual 04/10/2021 8: 10 AM CDT Last Filed Vital Signs Vital Sign Reading Time Taken Comments Blood Pressure 102/70 09/16/2016 4:13 PM CDT Pulse 77 09/16/2016 4:13 PM CDT Temperature 36.7 ??C (98.1 ??F) 09/16/2016 4:13 PM CD T Respiratory Rate 16 09/16/2016 4:13 PM CDT Oxygen Saturation 99% 09/16/2016 4:13 PM CDT Inhaled Oxygen Concentration - - Weight 63.5 kg (140 lb) 09/16/2016 4:13 PM CDT Height 165.1 cm (5' 5 ) 09/16/2016 4:13 PM CDT Body Mass Index 23.3 09/16/2016 4:13 PM CDT Plan of Treatment Not on file Care Teams Metal Furrer Relationship Specialty Start Date End Date Homa Mckeon MD [address] [place] [address] PCP - General 03/27/21 Homa Mckeon MD [address] [place] [address] Family Medicine 03/27/21
--- OUTSIDE RECORDS SUMMARY | 2024-07-07 18:06 | XMS_ITS | Encounter Summary ---
Author Organization [facility] Address [address] [facility] [place] [address] Care Team Providers Care Java Front End Web Developer Name Role Phone Homa Mckeon MD Primary Care Provider [phone] Reason for Visit * Reason Onset Date Comments Results 09/19/2016 Encounter Details Date Type Department Care Team (Late st Contact Info) Description 09/19/2016 Telephone [facility] [address] [address] Breanna Solano APRN[address] [phone] Results Social History Tobacco Use Types Packs/Day Years [...] on filedocumented in this encounter Care Teams Java Front End Web Developer Relationship Specialty Start Date End Date Homa Mckeon MD [address] [place] [id number] PCP - General Family Medicine 09/16/16 03/26/21 documented as of this encounter
--- OUTSIDE RECORDS SUMMARY | 2024-07-07 18:06 | XMS_ITS | Clinical Summary ---
Author Organization [facility] [employer] Address [address] [place] [address] Care Team Providers Care Entry Level Account Executive Name Role Phone Homa Mckeon MD Primary Care Provider [phone] Homa Mckeon MD Unavailable Source Comments [facility] [employer],non-owned Affiliates and Associated Physician Practices is amultiple site organization consisting of ambulatory clinics and hospital sitesin [place], [place] and [place]. This disclosure is being madepursuant to the Care Everywhere program and may not contain all information available regarding this patient. Last updated 18.[facility] [employer] Allergies No known active allergies Medications * [...] inconsistent with dates in third t rimester Family History Medical History Relation Name Comments Negative Family History Father Cancer - Skin, Non Melanoma Mother Relation Name Status Comments Father Mother Social History Tobacco Use Types Packs/Day Years [...] 09/16/2016 4:13 PM CDT Plan of Treatment Health Maintenance Due Date Last Done Comments PAP SMEAR 1990 HIV SCREENING 2005 HEPATITIS C SCREENING 03/19/2008 DTAP/TDAP/TD VACCINES (1 - Tdap) 2009 HEPATITIS B VACCINE (1 of 3 - 19+ 3-dose series) 2009 DEPRESSION SCREENING 07/07/2023 COVID-19 VACCINE (2023-2 5 season) 2024 09/21/2020, 08/30/2020 INFLUENZA VACCINE (#1) 2024 ZOSTER VACCINE (1 of 2) 2040 HIB VACCINE Aged Out No longer eligi ble based on patient's age to complete this topic HPV VACCINE Aged Out No longer eligi ble based on patient's age to complete this topic MENINGOCOCCAL VACCINE Aged Out No joão albino eligible based on patient's age to complete this topic PNEUMOCOCCAL VACCINE Aged Out No long er eligible based on patient's age to complete this topic Care Teams Entry Level Account Executive Relationship Specialty Start Date End Date Homa Mckeon MD [address] [place] [address] PCP - General 03/27/21 Homa Mckeon MD [address] [place] [address] Family Medicine 03/27/21
--- OUTSIDE RECORDS SUMMARY | 2024-07-07 18:06 | XMS_ITS | Encounter Summary ---
Author Organization [facility] Health Address [address] [place] [address] Care Team Providers Care Lens Mounter Name Role Phone Homa Mckeon MD Primary Care Provider [phone] Reason for Visit * Reason Comments Ultrasound Encounter Details Date Type Department Care Team (Late st Contact Info) Description 03/26/2021 9:40 AM CDT - 03/26/2021 11:59 PM CDT Hospital Encounter [facility] MATERNAL/ EVALUATION UNIT [address] [place] [address] Flavia Ferrell MD [address] [place] [address] Discharge Disposition: Home or Self Care Social History Tobacco Use Types Packs/Day Years Used Date Smoking Tobacco: Never Comments Yes Sex and Gender Information Value Date Recorded Sex Assigned at Female 04/10/2021 8:10 AM CDT Gender Identity Female 04/10/2021 8:10 AM CDT Sexual Orientation Bisexual 04/10/2021 8: 10 AM CDT documented as of this encounter Medications at Time of Discharge Medication Sig Dispensed Refills Start Date End Date BuPROPion HCl (WELLBUTRIN PO) buPROPion XL 24hr (WELLBUTRIN-XL) 300 MG tablet Take 1 Tab by mouth once daily 30 tablet 11 01/13/2016 diphenhydramine 12.5mg/ml, 30ml,; visc lidocaine 2%, 30ml,; maalox, 30ml, (MIRACLE MOUTHWASH) SUSPIndications:Acute pharyngitis, unspecified etiology 1:1:1 solution of viscous lidocaine 2%, Maalox, diphenhydramine 12.5mg/5ml elixir 90 mL 09/16/2016 Levonorgestrel (MIRENA, 52 MG, IU) norgestimate-ethinyl estradiol (ORTHO-CYCLEN; MONONESSA; PREVIFEM; SPRINTEC) 0.25-35 MG-MCG tablet Take 1 Tab by mouth once daily 1 packet 11 01/13/2016 documented as of this encounter Plan of Treatment Not on file documented as of this encounter Procedures Procedure Name Priority Date/Time Associated Diagnosis Comments SONOGRAM - COMPLETE Routine 03/26/2021 9 :54 AM CDT documented in this encounter Results * SONOGRAM - COMPLETE (03/26/2021 9:54 AM CDT) Anatomical Region Laterality Modality Other 03/26/2021 9:54 AM CDT Narrative 03/26/2021 10:32 AM CDT ? [facility] ? [facility] ?PHONE: ??FAX: Pat. Name: ?TAMANNA JEONG No: ?[id number] Study Date: ?? 03/26/2021 ??9:54am , Age: ? 1990, 31 Pregnancies: ?? 2, Para 0, Ab 1 Height: ? 66 in Weight: ? 217 lb LMP: ?Unknown GA by US: ? 31w3d ?? SHIRA: 05/25/2021 GA Selected: ??30w6d (From Known E) SHIRA: ?05/29/2021 Referring MD: Flavia Ferrell MD Vice President Of Product Marketing: ??Kita Beckwith RDMS CPT4: ? [address]81 BMI: ?35.02 Hist/Ind: ? Uterine size greater than dates ?MOB- hx VSD, no surgery required ? echo done @ [facility] ?NIPT: low risk ?Class II Obesity MEASUREMENTS & AGE ? GROWTH EVALUATION Measurement ??GA ? Range ? Srce %for GA Ratios ----- ---- ------- BPD ??8.1 cm 32w3d (81m2a-56q6o) Hadl BPD 84% FL/BPD 0.73 (0.71 - 0.87) HC ??29.7 cm 32w6d (15c2a-22z5s) Hadl HC ??67% FL/AC ??0.21 (0.20 - 0.24) AC ??28.2 cm 32w1d (37a7a-05w4g) Hadl AC ??82% HC/AC ??1.05 (0.97 - 1.16) FL ?? 5.9 cm 30w5d (01j8j-57h1u) Hadl FL ??29% CI ? 0.78 (0.70 - 0.86) HL ?? 5.7 cm 33w2d (15k6j-66j6h) Jovi HL ??90% Cere 3.8 cm 31w1d (92o3d-14d2q) Hill Cere56% GA for sonogram 31w3d (95f2w-07w9e) ?? Weight Estimate: based on (BPD,HC,AC,FL) Hadlock ?Weight: 1844 gm (1575-2113gm) Had ? : 4lbs, 1oz ? Normal: 1724 gm (1292- 2155gm) Had ? Wt% ? 71% for 30w6d Heart Rate: 153 bpm Amniotic Fluid Index: 14.4cm (08.8-23.7) Q1: 6.1cm ??Q2: 1.2cm ??Q3: 2.9cm ??Q4: 4.3cm ?? EVAL, PLACENTA Presentation: cephalic Umbilical Cord: 3 Vessels Placenta: anterior Heart Rate: 153 bpm Amniotic Fluid Volume: normal Anatomy!Normal!Abnormal!Suboptimal!Prev. Seen!Comments Cranium ?! ?? x ??! ?! ?! ?! Mdl (CSP/Thal! ?? x ??! ?! ?! ?! Ventricles ?? ! ?? x ??! ?! ?! ?! Choroid Plexu! ?? x ??! ?! ?! ?! Cerebellum ?? ! ?? x ??! ?! ?! ?! Cerebellar Ve! ?? x ??! ?! ?! ?! Cisterna M. ??! ?? x ??! ?! ?! ?! Orbits ? ! ?? x ??! ?! ?! ?! Profile ?! ?? x ??! ?! ?! ?! Nasal Bone ?? ! ?? x ??! ?! ?! ?! Lip ?! ?? x ??! ?! ?! ?! Maxilla ?! ?? x ??! ?! ?! ?! Mandible ? ! ?? x ??! ?! ?! ?! Neck ? ! ?! ?! ? x ?! ?! Spine ?! ?? x ??! ?! ?! ?! Lungs ?! ?? x ??! ?! ?! ?! 4 Chamber Hea! ?? x ??! ?! ?! ?! LVOT ? ! ?! ?! ? x ?! ?! RVOT ? ! ?? x ??! ?! ?! ?! 3 Vessel View! ?? x ??! ?! ?! ?! 3 Vessel Trac! ?? x ??! ?! ?! ?! Cross-over ?? ! ?? x ??! ?! ?! ?! Ductal Arch ??! ?! ?! ? x ?! ?! Aortic Arch ??! ?! ?! ? x ?! ?! Caval View ?? ! ?? x ??! ?! ?! ?! Situs ?! ?? x ??! ?! ?! ?! Diaphragm ?! ?? x ??! ?! ?! ?! Stomach ?! ?? x ??! ?! ?! ?! Liver ?! ?? x ??! ?! ?! ?! Bowel ?! ?? x ??! ?! ?! ?! Kidneys ?! ?? x ??! ?! ?! ?! Bladder ?! ?? x ??! ?! ?! ?! 3 Vessel Cord! ?? x ??! ?! ?! ?! Cord In! ?! ?! ? x ?! ?! Upper Extremi! ?? x ??! ?! ?! ?! Hands ?! ?! ?! ? x ?! ?!unremarkable ?left, suboptimal ?right Lower Extremi! ?? x ??! ?! ?! ?! Feet ? ! ?? x ??! ?! ?! ?! External Karen! ?! ?! ?! ?!Male Placental Cor! ?? x ??! ?! ?! ?! CLINICAL SUMMARY Study Number: 1 ?? A single fetus is seen in cephalic presentation. ??The measurements today are consistent with appropriate size for the SHIRA provided. ??The SHIRA is based on a prior outside ultrasound (unconfirmed). ??The amniotic fluid volume is within normal limits. ?? The anatomy as well as a ECHO has been previously done at [facility] IMPRESSION: Single, live intrauterine at 30w6d ?? size is within normal limits ?? Amniotic fluid volume: within normal limits ?? Incomplete anatomy No major malformations were seen within the limitations of ultrasound RECOMMEND: Ultrasound as clinically indicated Thank you for allowing us they opportunity to care for your patient Melvin Urias MD <Electronic Signature> ??03/26/2021 10:28am Flavia Ferrell MD [facility] ORDERABLES documented in this encounter Visit Diagnoses Not on filedocumented in this encounter Care Teams Lens Mounter Relationship Specialty Start Date End Date Homa Mckeon MD [address] [place], [place] [id number] PCP - General Family Medicine 09/16/16 03/26/21 documented as of this encounter
--- OUTSIDE RECORDS SUMMARY | 2024-07-07 18:06 | XMS_ITS | Encounter Summary ---
Author Organization [facility] Address [address] [address] [facility] Attn: Epic Prelude ADT JC CANTU [address] Care Team Providers Care Electric Power Machine Operator Name Role Phone Unavailable Primary Care Provider Unavailabl e Encounter Details Date Type Department Care Team (Latest Contact Info) Description 02/06/2021 Travel Social History Tobacco Use Types Packs/Day [...] have Coronavirus / COVID-19? No / Unsure 02/06/2021 2:29 PM CDT documented as of this encounter Plan of Treatment Upcoming Encounters Date Type Department Care Team (Late st Contact Info) Description 07/22/2024 3:30 PM COMBINATION OPERATOR Appointment [facility] [place] [address] [place] [address] Fernando Alvarenga MD [address] [place] [address] documented as of this encounter Visit Diagnoses Not on filedocumented in this encounter
--- OUTSIDE RECORDS SUMMARY | 2024-07-07 18:06 | XMS_ITS | Encounter Summary ---
Author Organization [facility] Address [address] [place] [address] Care Team Providers Care Oil Field Roustabout Name Role Phone Homa Mckeon MD Primary Care Provider [phone] Reason for Visit * Reason Comments Sore Throat Encounter Details Date Type Department Care Team (Late st Contact Info) Description 09/16/2016 10:00 AM CDT Office Visit [facility] AT [address] [address] Provider, [facility] Acute pharyngitis, unspecified etiology (Primary Dx) Social History Tobacco Use Types Packs/Day Years Used Date Smoking Tobacco: Never Sex and Gender Information Value Date Recorded Sex Assigned at Female 04/10/2021 8:10 AM CDT Gender Identity Female 04/10/2021 8:10 AM CDT Sexual Orientation Bisexual 04/10/2021 8: 10 AM CDT documented as of this encounter Last Filed [...] Mass Index 23.3 09/16/2016 4:13 PM CDT documented in this encounter Patient Instructions * Patient Instructions* Anthony Jerez APRN-RIVETING MACHINE OPERATOR AUTOMATIC - 09/16/2016 4:09 PM CDT Pharyngitis ENGINE ASSEMBLY SUPERVISOR: Pharyngitis , or sore throat, is inflammation of the tissues and structures in your pharynx (throat). Pharyngitis is most often caused by bacteria. It may also be caused by a cold or flu virus. Othercauses include smoking, allergies, or acid reflux. Signs and symptoms that may occur with pharyngitis: ?? Sore throat or pain when you swallow ?? Fever, chills, and body aches ?? Hoarse or raspy voice ?? Cough, runny or stuffy nose, itchy or watery eyes ?? Headache ?? Upset stomach and loss of appetite ?? Mild neck stiffness ?? Swollen glands that feel like hard lumps when you touch your neck ?? White and yellow pus-filled blisters in the back of your throat Call 911 for any of the following: ?? You have trouble breathing or swallowing because your throat is swollen or sore. Seek care immediately if: ?? You are drooling because it hurts too much to swallow. ?? Your fever is higher than 102?F (39?C) or lasts longer than 3 days. ?? You are confused. ?? You taste blood in your throat. Contact your healthcare provider if: ?? Your throat pain gets worse. ?? You have a painful lump in your throat that does not go away after 5 days. ?? Your symptoms do not improve after 5 days. ?? You have questions or concerns about your condition or care. Treatment for pharyngitis: Viral pharyngitis will go away on its own without treatment. Your sore throat should start to feel better in 3 to 5 days for both viral and bacterial infections. You may need any of the following: ?? Antibiotics treat a bacterial infection. ?? NSAIDs , such as ibuprofen, help decrease swelling, pain, and fever. NSAIDs can cause stomach bleeding or kidney problems in certain people. If you take blood thinner medicine, always ask your healthcare provider if NSAIDs are safe for you. Always read the medicine label and follow directions. ?? Acetaminophen decreases pain and fever. It is available without a doctor's order. Ask how much to take and how often to take it. Follow directions. Acetaminophen can cause liver damage if not taken correctly. Manage your symptoms: ?? Gargle salt water. Mix ?? teaspoon salt in an 8 ounce glass of warm water and gargle. This may help decrease swelling in your throat. ?? Drink liquids as directed. You may need to drink more liquids than usual. Liquids may help soothe your throat and prevent dehydration. Ask how much liquid to drink each day and which liquids are best for you. ?? Use a cool-steam humidifier to help moisten the air in your room and calm your cough. ?? Soothe your throat with cough drops, ice, soft foods, or popsicles. Prevent the spread of pharyngitis: Cover your mouth and nose when you cough or sneeze. Do not sharefood or drinks. Wash your hands often. Use soap and water. If soap and water are unavailable, use an alcohol based hand nurse case manager. Follow up with your healthcare provider as directed: Write down your questions so you remember to ask them during your visits. ?? 2016 [employer]. Information is for End User's use only and may not be sold, redistributed or otherwise used for commercial purposes. All illustrations and images included in CareNotes?? are the copyrighted property of [employer], [employer]. or [employer]. The above information is an director of student financial aid only. It is not intended as medical advice for individual conditions or treatments. Talk to your doctor, nurse or pharmacist before following any medical regimen to see if it is safe and effective for you. documented in this encounter Progress Notes * Anthony Jerez APRN-CNP - 09/16/2016 4:00 PM CDT History Tamanna Marquis is a 26 y.o. female who presents to the clinic with Chief Complaint Patient presents with ??? Sore Throat . Primary Care Physician is Homa Mckeon MD. She reports the following symptoms: sore throat. Onset was 2 days ago. The Clinical course has beengradually worsening. Patient is drinking plenty of fluids. Past Medical History Diagnosis Date ??? Depression Family History Problem Relation Age of Onset ??? Skin Cancer-Non Melanoma Mother ??? Negative Family History Father Current Outpatient Prescriptions Medication Sig Dispense Refill ??? BuPROPion HCl (WELLBUTRIN PO) ??? Levonorgestrel (MIRENA, 52 MG, IU) ??? diphenhydramine 12.5mg/ml, 30ml,; visc lidocaine 2%, 30ml,; maalox, 30ml, (MIRACLE MOUTHWASH) SUSP 1:1:1 solution of viscous lidocaine 2%, Maalox, diphenhydramine 12.5mg/5ml elixir 90 mL 0 No current facility-administered medications for this visit. No Known Allergies History Social History ??? Marital status: Single Spouse name: N/A ??? Number of children: N/A ??? Years of education: N/A Occupational History ??? Not on file. Social History Main Topics ??? Smoking status: Never Smoker ??? Smokeless tobacco: Not on file ??? Alcohol use: Not on file ??? Drug use: Not on file ??? Sexual activity: Not on file Other Topics Concern ??? Not on file Social History Narrative ??? No narrative on file Review of Systems Pertinent items are noted in HPI Constitutional: Negative Eyes: Negative Ears, nose, mouth, and throat: sore throat Respiratory: Negative Cardiovascular: Negative Gastrointestinal: Negative Genitourinary:Negative Skin: Negative Neurological: Negative Objective: BP 102/70 Pulse 77 Temp 98.1 ??F (Oral) Resp 16 Ht 1.651 m (5' 5 ) Wt 63.5 kg (140 lb) SpO2 99% BMI23.3 kg/m2 General appearance: alert, cooperative, no distress, oriented to person, place, and time, well appearing Head: normocephalic, without trauma Eyes: sclera and conjunctiva clear, EOMI and PERRLA, lids normal Ears: canals clear, tympanic membranes normal, hearing intact to voice Nose: nares open; no septal deviation is noted, no maxillary tenderness Throat: lips normal without lesions, buccal mucosa normal, gums healthy, teeth intact, non-carious,tongue midline and normal, mild oropharyngeal erythema, tonsillar hypertrophy 1+, no exudate Neck: range of motion is intact, no masses, thyroid not enlarged, Nodes: mild, benign-appearing anterior cervical adenopathy Lungs: breath sounds normal and symmetric; no rales or wheezes Heart: regular rhythm, normal S1 and S2, without murmurs, gallops or rubs Skin: no rashes or other abnormalities are noted Neurologic: mental status normal; alert and oriented X 3; cranial nerves II - XII are grossly intact Assessment: Encounter Diagnosis Name Primary? Acute pharyngitis, unspecified etiology Yes Plan: See orders, medications and patient instructions. Use of OTC analgesics recommended as well as salt water gargles. Patient placed on antibiotics - see orders. Educational materials given. Follow up PRN if symptoms worsen or persist greater than 7-10 days Throat cx sent to lab padmini per pt request Orders Placed This Encounter ??? CULTURE STREP GROUP A ??? STREP A SCREEN ??? diphenhydramine 12.5mg/ml, 30ml,; visc lidocaine 2%, 30ml,; maalox, 30ml, (MIRACLE MOUTHWASH) SUSP Si:1:1 solution of viscous lidocaine 2%, Maalox, diphenhydramine 12.5mg/5ml elixir Dispense: 90 mL Refill: 0 Swish, gargle, and spit one to two teaspoonfuls every six hours as needed. May be swallowed if esophageal involvement. Shake well before using. Recent Results (from the past 24 hour(s)) STREP A SCREEN Collection Time: 09/16/16 4:07 PM Result Value Ref Range Strep A Rapid Negative Negative Strep A INTERNAL CONTROL Present Lot Number [id number] Expiration Date 07 18 2018 documented in this encounter Plan of Treatment Not on file documented as of this encounter Procedures Procedure Name Priority Date/Time Associated Diagnosis Comments CULTURE STREP GROUP A Routine 09/16/2016 4:08 PM CDT Acute pharyngitis, unspecified etiology STREP A SCREEN - POINT OF CARE (AMB) STL Routine 09/16/2016 4:07 PM CDT Acute pharyngitis, unspecified etiology documented in this encounter Results * (ABNORMAL) CULTURE STREP GROUP A (09/16/2016 4:08 PM CDT) Beta-Strep Culture, Group A Only (A) [facility] ACCOUNT BILL Comment: Beta-hemolytic colonies, not group A Streptococcus isolated. Penicillin and ampicillin are drugs of choice for treatment of beta-hemolytic streptococcal infections. Susceptibility testing of penicillins and other beta-lactam agents approved by the FDA for treatment of beta-hemolytic streptococcal infections need not be performed routinely because nonsusceptible isolates are extremely rare in any beta-hemolytic streptococcus and have not been reported for Streptococcus pyogenes (group A). (CLSI 2011) Microbiology ENTIRE THROAT (SURFACE REGION OF NECK) / Unknown 09/16/2016 4:08 PM CDT 09/17/2016 Narrative Resulting Agency Comment [facility] [address] [facility] ??[facility] [id number] Anthony [facility] - MICROBIOLOG Y ORDERABLES [facility] ACCOUNT BILL [address] [place] [address] * STREP A SCREEN (09/16/2016 4:07 PM CDT) Strep A Rapid POCT Negative Negative Strep A Internal Control Present Lot # [id number] Expiration Date 07 18 2018 Throat ENTIRE THROAT (SURFACE REGION OF NECK) / Unknown 09/16/2016 4:07 PM CDT Anthony BADILLORIVETING MACHINE OPERATOR AUTOMATIC LAB - POINT OF CA RE ORDERABLES documented in this encounter Visit Diagnoses Diagnosis Acute pharyngitis, unspecified etiology- Primary documented in this encounter Care Teams Oil Field Roustabout Relationship Specialty Start Date End Date Homa Mckeon MD [address] [place], [place] [id number] PCP - General Family Medicine 09/16/16 03/26/21 documented as of this encounter
--- OUTSIDE RECORDS SUMMARY | 2024-07-07 18:06 | XMS_ITS | Encounter Summary ---
Author Organization [facility] Address [address] [place] [address] Care Team Providers Care Allopathic Doctor Name Role Phone Homa Mckeon MD Primary Care Provider [phone] Reason for Visit * Reason Onset Date Comments Follow-up 09/18/2016 Encounter Details Date Type Department Care Team (Late st Contact Info) Description 09/18/2016 Telephone [facility] [address] [phone] Kamila Rachel Follow-up Social History Tobacco Use Types Packs/Day Years [...] on filedocumented in this encounter Care Teams Allopathic Doctor Relationship Specialty Start Date End Date Homa Mckeon MD [address] [place] [address] PCP - General Family Medicine 09/16/16 03/26/21 documented as of this encounter
--- OUTSIDE RECORDS SUMMARY | 2024-07-07 18:06 | XMS_ITS | Clinical Summary ---
Author Organization [facility] Address [address] [place] [address] Phone Care Team Providers Care Protection Chief Industrial Plant Name Role Phone Unavailable Primary Care Provider Unavailabl e Encounters Date Type Department Care Team Description 06/22/2024 External Device Data STL ABSTRACTION Provider, Abstract 06/21/2024 10:15 AM TRANSIT PROOF MACHINE OPERATOR - 06/21/2024 11:59 PM TRANSIT PROOF MACHINE OPERATOR Hospital Encounter [facility] [address] [place] [address] Todd Sorensen MD Discharge Disposition: Home or Self Care from Last 3 Months Social History Tobacco Use Types Packs/Day Years Used Date Smoking Tobacco: Never Assessed Sex and Gender Information Value Date Recorded Sex Assigned at Not on file Gender Identity Not on file Sexual Orientation Not on file Last Filed Vital Signs Vital Sign Reading Time Taken Comments Blood Pressure - - Pulse - - Temperature - - Respiratory Rate - - Oxygen Saturation - - Inhaled Oxygen Concentration - - Weight 112.9 kg (249 lb) 06/21/2024 10:28 AM TRANSIT PROOF MACHINE OPERATOR Height 170.2 cm (5' 7 ) 06/21/2024 10:28 AM TRANSIT PROOF MACHINE OPERATOR Body Mass Index 39 06/21/2024 10:28 AM TRANSIT PROOF MACHINE OPERATOR Plan of Treatment Upcoming Encounters Date Type Department Care Team (Late st Contact Info) Description 07/22/2024 3:30 PM TRANSIT PROOF MACHINE OPERATOR Appointment [facility] [address] [place] [address] Fernando Alvarenga MD [address] [facility] [address] [place] [address] Health Maintenance Due Date Last Done Comments DTAP/TDAP/TD VACCINES (1 - Tdap) 2009 HEPATITIS B VACCINES (1 of 3 - 19+ 3-dose series) 2009 CERVICAL CANCER SCREENING 2020 INFLUENZA VACCINE (#1) 2024 HPV VACCINES Aged Out No longer eligi ble based on patient's age to complete this topic PNEUMOCOCCAL VACCINE 0-64 YEARS Aged Out No longer eligible based on patient's age to complete this topic Procedures Procedure Name Priority Date/Time Associated Diagnosis Comments US OB DETAIL SINGLE GEST Routine 06/21/2024 11:08 AM TRANSIT PROOF MACHINE OPERATOR Encounter for ultrasound to assess growth from Last 3 Months Results * US OB DETAIL SINGLE GEST (06/21/2024 11:08 AM TRANSIT PROOF MACHINE OPERATOR) Anatomical Region Laterality Modality Pelvis Ultrasound 06/21/2024 10:3 0 AM TRANSIT PROOF MACHINE OPERATOR Narrative 06/21/2024 1:22 PM TRANSIT PROOF MACHINE OPERATOR STL COMP ----- Pat. Name: RAJENDRA JEONG Study Date: 06/21/2024 10:30am Pat. NO: [id number] Referring ??MD: TODD SORENSEN MD Site: [facility] Geodesist: Azalia Calderon RDMS : 1990 Age: 34 [...] ?Z36.3: Encounter for screening for malformations Procedures ?[id number]: Ultrasound, uterus, real time with image documentation, [...] 3 lb 5 ?oz EFW by ?Hadlock ([id number]) Head / Face / Neck Biometry: Detention Attendant ? 6.3 ? mm CM ? 7.3 [...] view. RVOT view. LVOT view. 3-vessel view. 4-qrmznu-ryqsyxl view. Situs. Aortic arch view. ?Ductal arch [...] and date of were verified by the supervisor compressed yeast before the exam IMPRESSION ----- - Intrauterine [...] Owusu MD - 06/21/2024 STL COMP ----- [place]. Name:Ty JEONG Date:0:30am Pat. NO: [id number] MD:TODD SORENSEN [facility]Azalia Calderon RDMS :1990Age:34 ----- INDICATION ----- Anatomy [...] delivery Z36.3: Encounter for screening formalformations Procedures [id number]: Ultrasound, uterus, real time withimage documentation, and [...] dating:based on stated SHIRA GA by prior [id number] w + 6 d SHIRA by prior assessment:09/14/2024 Ultrasound examination on:06/21/2024 GA by U/S based upon:AC, BPD, EFW, Femur, HC GA by U/S29 w + 5 d SHIRA by U/S:09/01/2024 Assigned:based on stated SHIRA, selected on 06/21/2024 Assigned [id number] w + 6 d Assigned SHIRA:09/14/2024 BIOMETRY ----- BPD 74.8 mm 30w 0d94% Hadlock OFD 95.5 mm 30w 6d98% Carlin HC 270.9 mm 29w 4d73% Hadlock Cerebellum tr 32.7 mm 29w 2d80% Lopez AC 266.2 mm 30w 5d98% Hadlock Femur 54.7 mm 28w 6d66% Hadlock Humerus 49.8 mm 29w 1d80% Carlin HC / AC 1.02 10%Nicolaides Weight Calculation: EFW 1,489 g 29w 4d97% Hadlock EFW (lb,oz) 3 lb 5 oz EFW by Hadlock ([id number]) Head / Face / Neck Biometry: Detention Attendant 6.3 mm CM 7.3 mm 69%Nicolaides Extremities [...] 4-chamber view. RVOT view. LVOT view. 3-vesselview. 5-croimv-ycvxmpb view. Situs. Aortic arch view. Ductal arch [...] and date of were verified by the supervisor compressed yeast beforethe exam IMPRESSION ----- - Intrauterine at [...] 28-30 weeks, and greater than 7 mm -68 weeks is considered elevated. This occurs in [...] dilation. Recommend: Follow up in 4 weeks. Todd Sorensen MD US ORDERABLES from Last 3 Months
--- OUTSIDE RECORDS SUMMARY | 2024-07-07 18:06 | XMS_ITS | Encounter Summary ---
Author Organization [facility] Address [address] [place] [address] Care Team Providers Care Recycling Attendant Name Role Phone Unknown, Provider Primary Care Provider Homa Sepulveda MD Primary Care Provider [phone] Encounter Details Date Type Department Care Team (Late st Contact Info) Description 01/13/2016 Orders Historic [facility] [address] [place] [address] Acute pharyngitis Social History Tobacco Use Types Packs/Day Years [...] Procedure Name Priority Date/Time Associated Diagnosis Comments STREP A SCREEN DIRECT STAT 01/13/2016 8:45 AM CDT documented in this encounter Results * STREP A SCREEN DIRECT (01/13/2016 8:45 AM CDT) Rapid Strep A NEGATIVE NEGATIVE 01/13/2016 8:59 AM CDT [facility] Throat swab (specimen) ENTIRE THROAT (SURFACE REGION OF NECK) / Unknown 01/13/2016 8:45 AM CDT 01/13/2016 8:50 AM CDT Alla Parker MD LAB - MICROBIOLOGY ORDERABLES [facility] [address] [place] [address] documented in this encounter Visit Diagnoses Diagnosis Acute pharyngitis documented in this encounter Care Teams Recycling Attendant Relationship Specialty Start Date End Date Unknown, Provider PCP - General 01/13/16 09/15/16 Homa Mckeon MD [address] [place], [place] [id number] PCP - General Family Medicine 09/16/16 03/26/21 documented as of this encounter
--- OUTSIDE RECORDS SUMMARY | 2024-07-07 18:06 | XMS_ITS | Patient Health Summary ---
Author Organization [facility] Address [address] [facility] [place] [address] Care Team Providers Care Publications Production Supervisor Name Role Phone Homa Mckeon MD Primary Care Provider [phone] Homa Mckeon MD Unavailable Note from [facility],non-owned Affiliates and Associated Physician Practices is amultiple site organization consisting of ambulatory clinics and hospital sitesin [place], [place], [place] and [place]. This disclosure is being madepursuant to the Care Everywhere program and may not contain all information available regarding this patient. Last updated 18.[facility] Allergies No known active allergies Medications * Be aware that medications may not be up to date on this document. Alwaysverify current medications with the patient. * BuPROPion HCl (WELLBUTRIN PO) * Levonorgestrel (MIRENA, 52 MG, IU) * diphenhydramine 12.5mg/ml, 30ml,; visc lidocaine 2%, 30ml,; maalox, 30ml, (MIRACLE MOUTHWASH) SUSP(Started 09/16/2016) 1:1:1 solution of viscous lidocaine 2%, Maalox, diphenhydramine 12.5mg/5ml elixir * buPROPion XL 24hr (WELLBUTRIN-XL) 300 MG tablet(Started 01/13/2016) Take 1 Tab by mouth once daily 11 refills left * norgestimate-ethinyl estradiol (ORTHO-CYCLEN; MONONESSA; PREVIFEM; SPRINTEC) 0.25-35 MG-MCG tablet(Started 01/13/2016) Take 1 Tab by mouth once daily 11 refills left Active Problems Problem Noted Date Diagnosed Date Size of fetus inconsistent with dates in third t Social History Tobacco Use Types Packs/Day Years [...] Mass Index 23.3 09/16/2016 4:13 PM CDT Procedures * SONOGRAM - COMPLETE(Performed 03/26/2021) * CULTURE STREP GROUP A(Performed 09/16/2016) Performed for Acute pharyngitis, unspecified etiology * STREP A SCREEN - POINT OF CARE (AMB) STL(Performed 09/16/2016) Performed for Acute pharyngitis, unspecified etiology * STREP A SCREEN DIRECT(Performed 01/15/2016) * STREP A SCREEN DIRECT(Performed 01/13/2016) Results * SONOGRAM - COMPLETE (03/26/2021 9:54 AM CDT) Anatomical Region Laterality Modality Other 03/26/2021 9:54 AM CDT Narrative 03/26/2021 10:32 AM CDT ? [facility] ? Maternal & Care Center ?PHONE: ??FAX: Pat. Name: ?TAMANNA JEONG Pat. No: ?[id number] Study Date: ?? 03/26/2021 ??9:54am , Age: ? 1990, 31 Pregnancies: ?? 2, Para 0, Ab 1 Height: ? 66 in Weight: ? 217 lb LMP: ?Unknown GA by US: ? 31w3d ?? SHIRA: 05/25/2021 GA Selected: ??30w6d (From Known E) SHIRA: ?05/29/2021 Referring MD: Flavia Ferrell MD Gravity Meter Observer: ??Kita Beckwith RDMS CPT4: ? 04932 BMI: ?35.02 Hist/Ind: ? Uterine size greater than dates ?MOB- hx VSD, no surgery required ? echo done @ [facility] ?NIPT: low risk ?Class II Obesity MEASUREMENTS & AGE ? GROWTH EVALUATION Measurement ??GA ? Range ? Srce %for GA Ratios ----- ---- ------- BPD ??8.1 cm 32w3d (33s7g-50g4x) Hadl BPD 84% FL/BPD 0.73 (0.71 - 0.87) HC ??29.7 cm 32w6d (94r8j-47d5p) Hadl HC ??67% FL/AC ??0.21 (0.20 - 0.24) AC ??28.2 cm 32w1d (60t6k-71a7s) Hadl AC ??82% HC/AC ??1.05 (0.97 - 1.16) FL ?? 5.9 cm 30w5d (98k8w-95v3o) Hadl FL ??29% CI ? 0.78 (0.70 - 0.86) HL ?? 5.7 cm 33w2d (91m8s-87m0g) Jovi HL ??90% Cere 3.8 cm 31w1d (66g7k-84e3k) Hill Cere56% GA for sonogram 31w3d (47a8r-41d3w) ?? Weight Estimate: based on (BPD,HC,AC,FL) Hadlock [...] a ECHO has been previously done at [facility] IMPRESSION: Single, live intrauterine at 30w6d ?? size is within normal limits ?? Amniotic fluid volume: within normal limits ?? Incomplete anatomy No major malformations were seen within the limitations of ultrasound RECOMMEND: Ultrasound as clinically indicated Thank you for allowing us they opportunity to care for your patient Melvin Urias MD <Electronic Signature> ??03/26/2021 10:28am Flavia Ferrell MD [facility] ORDERABLES * (ABNORMAL) CULTURE STREP GROUP A (09/16/2016 [...] CDT 09/17/2016 Narrative Resulting Agency Comment [facility] [address] ??[facility] [id number] Anthony Jerez APRN-OVERHEAD CRANE TECHNICIAN LAB - MICROBIOLOG Y ORDERABLES [facility] ACCOUNT BILL [address] [place] [address] * STREP A SCREEN (09/16/2016 4:07 PM CDT) Strep A Rapid POCT Negative Negative Strep A Internal Control Present Lot # [id number] Expiration Date 07 18 2018 Throat ENTIRE THROAT (SURFACE REGION OF NECK) / Unknown 09/16/2016 4:07 PM CDT Anthony Jerez APRN-[facility] LAB - POINT OF CA RE ORDERABLES * STREP A SCREEN DIRECT (01/15/2016 12:59 PM CDT) Only the most recent of2 resultswithin the time period is included. Rapid Strep A NEGATIVE NEGATIVE 01/15/2016 1:07 PM CDT [facility] Throat swab (specimen) ENTIRE THROAT (SURFACE REGION OF NECK) / Unknown 01/15/2016 12:59 PM CDT 01/15/2016 12:59 PM CDT Elly Pickard PA-C LAB - MICROBIOLOGY ORDERABLES [facility] [address] [place] [address] Care Teams Publications Production Supervisor Relationship Specialty Start Date End Date Homa Mckeon MD [address] [place] [address] PCP - General 03/27/21 Homa Mckeon MD [address] [place] [address] Family Medicine 03/27/21
--- OUTSIDE RECORDS SUMMARY | 2024-07-07 18:06 | XMS_ITS | Encounter Summary ---
Author Organization [facility] Address [address] [place] [address] Care Team Providers Care Production Team Manager Name Role Phone Unknown, Provider Primary Care Provider Homa Sepulveda MD Primary Care Provider [phone] Encounter Details Date Type Department Care Team (Late st Contact Info) Description 01/15/2016 Orders Historic [facility] [address] [place] [address] Acute pharyngitis Social History Tobacco Use Types [...] Diagnosis Comments STREP A SCREEN DIRECT STAT 01/15/2016 12:59 PM CDT documented in this encounter Results * STREP A SCREEN DIRECT (01/15/2016 12:59 PM CDT) Rapid Strep A NEGATIVE NEGATIVE 01/15/2016 1:07 PM CDT [facility] Throat swab (specimen) ENTIRE THROAT (SURFACE REGION OF NECK) / Unknown 01/15/2016 12:59 PM CDT 01/15/2016 12:59 PM CDT Elly Pickard PA-C LAB - MICROBIOLOGY ORDERABLES [facility] [address] [place] [address] documented in this encounter Visit Diagnoses Diagnosis Acute pharyngitis documented in this encounter Care Teams Production Team Manager Relationship Specialty Start Date End Date Unknown, Provider PCP - General 01/13/16 09/15/16 Homa Mckeon MD [address] [place], [place] [id number] PCP - General Family Medicine 09/16/16 03/26/21 documented as of this encounter
--- OUTSIDE RECORDS SUMMARY | 2024-07-07 18:06 | XMS_ITS | Encounter Summary ---
Author Organization [facility] Address [address] [facility] Attn: Epic Prelude ADT JC CANTU [phone] Care Team Providers Care Pvc Loader Name Role Phone Unavailable Primary Care Provider Unavailabl e Encounter Details Date Type Department Care Team (Latest Contact Info) Description 01/29/2021 Travel Social History Tobacco Use Types Packs/Day [...] st Contact Info) Description 07/22/2024 3:30 PM BLAST FURNACE KEEPER HELPER Appointment [facility] Maternal and Health [facility] [address] [place] [address] Fernando Alvarenga MD [address] [facility] [address] [place] [address] documented as of this encounter Visit Diagnoses Not on filedocumented in this encounter
--- OUTSIDE RECORDS SUMMARY | 2024-07-07 18:06 | XMS_ITS | Encounter Summary ---
Author Organization [facility] Address [address] [place] [address] Care Team Providers Care Utility Inspector Name Role Phone Unavailable Primary Care Provider Unavailabl e Reason for Referral * Radiology Services (Routine) - Closed Specialty Diagnoses / Procedures Referred By Christel meier Referred To Contact Diagnoses History of ventricular septal defect Procedures ECHO 2D + COLOR FLOW VELOCITY NJ DOPPLER COLOR FLOW VELOCITY MAP CHG SONO HEART CHG SONO HEART DOPPLER Flavia Ferrell MD [address] [place] [address] Referral ID Status Reason Start Date Expiration Date Visits Re quested Visits Authorized [id number] Closed 02/05/2021 03/08/2021 1 1 Reason for Visit * Radiology Services (Routine) - Closed Specialty Diagnoses / Procedures Referred By Christel meier Referred To Contact Diagnoses History of ventricular septal defect Procedures ECHO 2D + COLOR FLOW VELOCITY NJ DOPPLER COLOR FLOW VELOCITY MAP CHG SONO HEART CHG SONO HEART DOPPLER Flavia Ferrell MD [address] [place] [address] Referral ID Status Reason Start Date Expiration Date Visits Re quested Visits Authorized [id number] Closed 02/05/2021 03/08/2021 1 1 Encounter Details Date Type Department Care Team (Latest Contact Info) Description 02/06/2021 2:32 PM CDT - 02/06/2021 11:59 PM CDT Hospital Encounter [facility] Maternal and Ground Floor [address] [facility] [address] [place] [phone] Letha Schaefer MD [address] [place] [address] Discharge Disposition: Home or Self Care Social [...] st Contact Info) Description 07/22/2024 3:30 PM TRADE ANALYST Appointment [facility] Maternal and Health [facility] [address] [place] [address] Fernando Alvarenga MD [address] [place] [place] [address] documented as of this encounter Procedures Procedure Name Priority Date/Time Associated Diagnosis Comments ECHO 2D + COLOR FLOW VELOCITY Routine 02/06/2021 4:23 PM CDT History of ventricular septal defect documented in this encounter Results * ECHO 2D + COLOR FLOW VELOCITY (02/06/2021 4:23 PM CDT) Narrative 02/06/2021 4:23 PM CDT Order information only. ??Exam was auto-finalized. ?? Letha Schaefer MD ORDERABLES documented in this encounter Visit Diagnoses Diagnosis History of ventricular septal defect Personal history of other diseases of circulatory system documented in this encounter
--- OUTSIDE RECORDS SUMMARY | 2024-07-07 18:06 | XMS_ITS | Encounter Summary ---
Author Organization [facility] Address [address] [place] [address] Care Team Providers Care Ticket Dispatcher Name Role Phone Unavailable Primary Care Provider Unavailabl e Encounter Details Date Type Department Care Team (Late st Contact Info) Description 06/22/2024 External Device Data STL ABSTRACTION Provider, Abstract NO ADDRESS ON FILE Social History Tobacco Use Types Packs/Day Years Used Date Smoking Tobacco: Never Assessed Sex and Gender Information Value Date Recorded Sex Assigned at Not on file Gender Identity Not on file Sexual Orientation Not on file documented as of this encounter Plan of Treatment Upcoming Encounters Date Type Department Care Team (Late st Contact Info) Description 07/22/2024 3:30 PM MANAGER ED Appointment [facility] Maternal and Health [facility] [address] [place] [address] Fernando Alvarenga MD [address] [facility] [address] [place] [address] documented as of this encounter Visit Diagnoses Not on filedocumented in this encounter
--- OUTSIDE RECORDS SUMMARY | 2024-07-07 18:06 | XMS_ITS | Encounter Summary ---
Author Organization [employer] [facility] Address [address] [place] [address] Care Team Providers Care Civil Litigation Attorney Name Role Phone Unavailable Primary Care Provider Unavailabl e Reason for Visit * Radiology Services (Routine) - Closed Specialty Diagnoses / Procedures Referred By Contac t Referred To Contact Diagnoses History of ventricular septal defect Procedures US OB LTD 1 OR MORE FETUSES US OB LTD 1 OR MORE FETUS + TV CHG US, UTERUS,LIMITED, 1/> FETUSES CHG US, UTERUS,TRANSVAGINAL MariaelenaFlavia celaya MD [address] [place] [address] Referral ID Status Reason Start Date Expiration Date Visits Re quested Visits Authorized [id number] Closed 01/29/2021 03/01/2022 1 1 Encounter Details Date Type Department Care Team (Latest Contact Info) Description 02/06/2021 2:32 PM CDT - 02/06/2021 11:59 PM CDT Hospital [facility] M[facility] Ground Floor [address] [place] [address] Letha Schaefer MD [address] [facility] [place] [address] Discharge Disposition: Home or Self [...] st Contact Info) Description 07/22/2024 3:30 PM MERGERS AND ACQUISITIONS CONSULTANT Appointment [facility] Maternal and Health [facility] [address] [place] [address] Fernando Alvarenga MD [address] [place] [place] [address] documented as of this encounter Procedures Procedure Name Priority Date/Time Associated Diagnosis Comments US OB LTD 1 OR MORE FETUSES Routine 02/06/2021 4:23 PM CDT History of ventricular septal defect documented in this encounter Results * US OB LTD 1 OR MORE FETUSES (02/06/2021 4:23 PM CDT) Anatomical Region Laterality Modality Pelvis Ultrasound 02/06/2021 3:05 PM CDT Letha Schaefer MD US ORDERABLES documented in this encounter Visit Diagnoses Diagnosis History of ventricular septal defect Personal history of other diseases of circulatory system documented in this encounter
--- OUTSIDE RECORDS SUMMARY | 2024-07-07 18:36 | XMS_ITS | Encounter Summary ---
Author Organization [facility] [facility] Address [address] [place] [address] Care Team Providers Care Table Filler Name Role Phone Unavailable Primary Care Provider [...] MariaelenaFlavia celaya MD [address] [place] [address] Referral ID Status Reason Start Date Expiration Date Visits Re quested Visits Authorized [id number] Closed 01/29/2021 03/01/2022 1 1 Encounter Details Date Type Department Care Team (Latest Contact Info) Description 02/06/2021 2:32 PM CDT - 02/06/2021 11:59 PM CDT [facility] Ground Floor [address] [place] [address] Letha Schaefer MD [address] [facility] [place] [address] Discharge Disposition: Home or Self [...] Contact Info) Description 07/22/2024 3:30 PM MANAGER LOSS PREVENTION Appointment [facility] Maternal and Health [facility] [address] [place] [address] Fernando Alvarenga MD [address] [facility] [place] [address] documented as of this encounter [...]
--- OUTSIDE RECORDS SUMMARY | 2024-07-07 18:36 | XMS_ITS | Encounter Summary ---
Author Organization [facility] Address [address] [facility] Attn: Epic Prelude ADT JC CANTU [phone] Care Team Providers Care Manual Tester Name Role Phone Unavailable Primary Care Provider [...] st Contact Info) Description 07/22/2024 3:30 PM LABORER TREE TAPPING Appointment [facility] Maternal and Health [facility] [address] [place] [address] Fernando Alvarenga MD [address] [facility] [address] [place] [address] documented as of this encounter Visit Diagnoses Not on filedocumented in this encounter
--- OUTSIDE RECORDS SUMMARY | 2024-07-07 18:36 | XMS_ITS | Encounter Summary ---
Author Organization [facility] Address [address] [facility] [place] [address] Care Team Providers Care Basket Turner Name Role Phone Homa Mckeon MD Primary Care Provider [phone] Reason for Visit * Reason Onset Date Comments Results 09/19/2016 Encounter Details Date Type Department Care Team (Late st Contact Info) Description 09/19/2016 Telephone [facility] [address] [address] Breanna Solano APRN[address] [phone] Results Social History Tobacco Use Types Packs/Day [...] on filedocumented in this encounter Care Teams Basket Turner Relationship Specialty Start Date End Date Homa Mckeon MD [address] [place] [address] PCP - General Family Medicine 09/16/16 03/26/21 documented as of this encounter
--- OUTSIDE RECORDS SUMMARY | 2024-07-07 18:36 | XMS_ITS | Clinical Summary ---
Author Organization [facility] Address [address] [place] [address] Phone Care Team Providers Care Real Estate Branch Manager Name Role Phone Unavailable Primary Care Provider Unavailabl e Encounters Date Type Department Care Team Description 06/22/2024 External Device Data STL ABSTRACTION Provider, Abstract 06/21/2024 10:15 AM BLOW OFF WORKER - 06/21/2024 11:59 PM BLOW OFF WORKER Hospital Encounter [facility] [address] [place] [address] Todd Sorensen MD Discharge Disposition: [...] 112.9 kg (249 lb) 06/21/2024 10:28 AM BLOW OFF WORKER Height 170.2 cm (5' 7 ) 06/21/2024 10:28 AM BLOW OFF WORKER Body Mass Index 39 06/21/2024 10:28 AM BLOW OFF WORKER Plan of Treatment Upcoming Encounters Date Type Department Care Team (Late st Contact Info) Description 07/22/2024 3:30 PM BLOW OFF WORKER Appointment [facility] [address] [place] [address] Fernando Alvarenga MD [address] [facility] [address] [place] [address] Health Maintenance Due Date Last [...] DETAIL SINGLE GEST Routine 06/21/2024 11:08 AM BLOW OFF WORKER Encounter for ultrasound to assess growth from Last 3 Months Results * US OB DETAIL SINGLE GEST (06/21/2024 11:08 AM BLOW OFF WORKER) Anatomical Region Laterality Modality Pelvis Ultrasound 06/21/2024 10:3 0 AM BLOW OFF WORKER Narrative 06/21/2024 1:22 PM BLOW OFF WORKER STL COMP ----- Pat. Name: RAJENDRA JEONG Study Date: 06/21/2024 10:30am Pat. NO: [id number] Referring ??MD: TODD SORENSEN MD Site: [facility]er: Azalia Calderon RDMS : 1990 Age: 34 [...] ?Z36.3: Encounter for screening for malformations Procedures ?90142: Ultrasound, uterus, real time with image documentation, [...] 3 lb 5 ?oz EFW by ?Hadlock ([id number]) Head / Face / Neck Biometry: Crossing Tender ? 6.3 ? mm CM ? 7.3 [...] view. RVOT view. LVOT view. 3-vessel view. 0-lqqodv-kbnxhsz view. Situs. Aortic arch view. ?Ductal arch [...] and date of were verified by the service manager before the exam IMPRESSION ----- - Intrauterine [...] ----- Oxana. Name:Ty JEONG Date:0:30am Pat. NO: [id number] MD:TODD SORENSEN MD [facility]Azalia Calderon RDMS :1990Age:34 ----- INDICATION ----- [...] delivery Z36.3: Encounter for screening formalformations Procedures 78947: Ultrasound, uterus, real time withimage documentation, and [...] dating:based on stated SHIRA GA by prior [id number] w + 6 d SHIRA by prior [...] 3 lb 5 oz EFW by Hadlock ([id number]) Head / Face / Neck Biometry: Crossing Tender 6.3 mm CM 7.3 mm 69%Nicolaides Extremities [...] 4-chamber view. RVOT view. LVOT view. 3-vesselview. 6-takccv-igjvwji view. Situs. Aortic arch view. Ductal arch [...] and date of were verified by the service manager beforethe exam IMPRESSION ----- - Intrauterine at [...] 28-30 weeks, and greater than 7 mm -40 weeks is considered elevated. This occurs in [...]
--- OUTSIDE RECORDS SUMMARY | 2024-07-07 18:36 | XMS_ITS | Encounter Summary ---
Author Organization [facility] Address [address] [place] [address] Care Team Providers Care Tie Tamper Name Role Phone Homa Mckeon MD Primary Care Provider [phone] Reason for Visit * Reason Comments Ultrasound Encounter Details Date Type Department Care Team (Late st Contact Info) Description 03/26/2021 9:40 AM CDT - 03/26/2021 11:59 PM CDT Hospital Encounter [facility] MATERNAL/ EVALUATION UNIT [address] [facility] [address] [place] [address] Flavia Ferrell MD [address] [facility] [address] [place] [address] Discharge Disposition: Home or Self [...] CDT Narrative 03/26/2021 10:32 AM CDT ? [facility] ? Maternal & Care Center ?PHONE: ??FAX: Pat. Name: ?TAMANNA JEONG No: ?[id number] Study Date: ?? 03/26/2021 ??9:54am , Age: ? 1990, 31 Pregnancies: ?? 2, Para 0, Ab 1 Height: ? 66 in Weight: ? 217 lb LMP: ?Unknown GA by US: ? 31w3d ?? SHIRA: 05/25/2021 GA Selected: ??30w6d (From Known E) SHIRA: ?05/29/2021 Referring MD: Flavia Ferrell MD Senior Cost Estimator: ??Kita Beckwith RDMS CPT4: ? 04607 BMI: ?35.02 Hist/Ind: ? Uterine size greater than dates ?MOB- hx VSD, no surgery required ? echo done @ [facility] ?NIPT: low risk ?Class II Obesity MEASUREMENTS & AGE ? GROWTH EVALUATION Measurement ??GA ? Range ? Srce %for GA Ratios ----- ---- ------- BPD ??8.1 cm 32w3d (69r2y-63v3n) Hadl BPD 84% FL/BPD 0.73 (0.71 - 0.87) HC ??29.7 cm 32w6d (98s5d-22m2l) Hadl HC ??67% FL/AC ??0.21 (0.20 - 0.24) AC ??28.2 cm 32w1d (25t3b-56v6v) Hadl AC ??82% HC/AC ??1.05 (0.97 - 1.16) FL ?? 5.9 cm 30w5d (20f0b-84g2g) Hadl FL ??29% CI ? 0.78 (0.70 - 0.86) HL ?? 5.7 cm 33w2d (10l2w-44a6i) Jovi HL ??90% Cere 3.8 cm 31w1d (21y3x-24e6i) Hill Cere56% GA for sonogram 31w3d (98r4c-59o9z) ?? Weight Estimate: based on (BPD,HC,AC,FL) Hadlock [...] a ECHO has been previously done at [facility] IMPRESSION: Single, live intrauterine at 30w6d ?? size is within normal limits ?? Amniotic fluid volume: within normal limits ?? Incomplete anatomy No major malformations were seen within the limitations of ultrasound RECOMMEND: Ultrasound as clinically indicated Thank you for allowing us they opportunity to care for your patient Melvin Urias MD <Electronic Signature> ??03/26/2021 10:28am Flavia Ferrell MD [facility] ORDERABLES documented in this encounter Visit Diagnoses Not on filedocumented in this encounter Care Teams Tie Tamper Relationship Specialty Start Date End Date Homa Mckeon MD [address] [place], [place] [id number] PCP - General Family Medicine 09/16/16 03/26/21 documented as of this encounter
--- OUTSIDE RECORDS SUMMARY | 2024-07-07 18:36 | XMS_ITS | Encounter Summary ---
Author Organization [facility] Address [address] [place] [address] Care Team Providers Care Print Washer Name Role Phone Unavailable Primary Care Provider Unavailabl e Reason for Referral * Radiology Services (Routine) - Closed Specialty Diagnoses / Procedures Referred By Christel meier Referred To Contact Diagnoses History of ventricular septal defect Procedures ECHO 2D + COLOR FLOW VELOCITY [place] DOPPLER COLOR FLOW VELOCITY MAP CHG SONO HEART CHG SONO HEART DOPPLER Flavia Ferrell MD [address] [place] [address] Referral ID Status Reason Start Date Expiration Date Visits Re quested Visits Authorized [id number] Closed 02/05/2021 03/08/2021 1 1 Reason for Visit * Radiology Services (Routine) - Closed Specialty Diagnoses / Procedures Referred By Christel meier Referred To Contact Diagnoses History of ventricular septal defect Procedures ECHO 2D + COLOR FLOW VELOCITY NJ DOPPLER COLOR FLOW VELOCITY MAP CHG SONO HEART CHG SONO HEART DOPPLER Flavia Ferrell MD [address] [place] [address] Referral ID Status Reason Start Date Expiration Date Visits Re quested Visits Authorized [id number] Closed 02/05/2021 03/08/2021 1 1 Encounter Details Date Type Department Care Team (Latest Contact Info) Description 02/06/2021 2:32 PM CDT - 02/06/2021 11:59 PM CDT Hospital Encounter [facility] Maternal and Ground [facility] [address] [facility] [address] [place] [phone] Letha Schaefer MD [address] [place] [address] Discharge Disposition: Home or Self [...] st Contact Info) Description 07/22/2024 3:30 PM INFORMATION SYSTEMS SECURITY OFFICER Appointment [facility] Maternal and Health [facility] [address] 3[address] [place] [address] Fernando Alvarenga MD [address] [place] [address] documented as of this encounter [...]
--- OUTSIDE RECORDS SUMMARY | 2024-07-07 18:36 | XMS_ITS | Clinical Summary ---
Author Organization [facility] Address [address] [facility] [place] [address] Care Team Providers Care Aircraft Cleaner Name Role Phone Homa Mckeon MD Primary Care Provider [phone] Homa Mckeon MD Unavailable Source Comments [facility],non-owned Affiliates and Associated Physician Practices is amultiple site organization consisting of ambulatory clinics and hospital sitesin [place], [place], [place] and [place]. This disclosure is being madepursuant to the Care Everywhere program and may not contain all information available regarding this patient. Last updated 18.[facility] Allergies No known active allergies Medications * [...] age to complete this topic Care Teams Aircraft Cleaner Relationship Specialty Start Date End Date Homa Mckeon MD [address] [place] [address] PCP - General 03/27/21 Homa Mckeon MD [address] [place] [address] Family Medicine 03/27/21
--- OUTSIDE RECORDS SUMMARY | 2024-07-07 18:36 | XMS_ITS | Encounter Summary ---
Author Organization [facility] Address [address] [place] [address] Care Team Providers Care Bath Mixer Name Role Phone Homa Mckeon MD Primary Care Provider [phone] Reason for Visit * Reason Onset Date Comments Follow-up 09/18/2016 Encounter Details Date Type Department Care Team (Late st Contact Info) Description 09/18/2016 Telephone [facility] [address] [phone] Kamila Rachel Follow-up Social History Tobacco Use [...] on filedocumented in this encounter Care Teams Bath Mixer Relationship Specialty Start Date End Date Homa Mckeon MD [address] [place] [address] PCP - General Family Medicine 09/16/16 03/26/21 documented as of this encounter
--- OUTSIDE RECORDS SUMMARY | 2024-07-07 18:36 | XMS_ITS | Encounter Summary ---
Author Organization [facility] Address [address] [place] [address] Care Team Providers Care Transverse Abdominal Muscle Nurse Name Role Phone Unavailable Primary Care Provider [...] st Contact Info) Description 07/22/2024 3:30 PM NEWSPAPER MANAGING EDITOR Appointment [facility] Maternal and Health [facility] [address] [place] [address] Fernando Alvarenga MD [address] [facility] [address] [place] [address] documented as of this encounter Visit Diagnoses Not on filedocumented in this encounter
--- OUTSIDE RECORDS SUMMARY | 2024-07-07 18:36 | XMS_ITS | Encounter Summary ---
Author Organization [facility] Address [address] [place] [address] Care Team Providers Care It Infrastructure Specialist Name Role Phone Unavailable Primary Care Provider Unavailabl e Reason for Visit * Radiology Services (Routine) - Closed Specialty Diagnoses / Procedures Referred By Contac t Referred To Contact Diagnoses Encounter for ultrasound to assess growth Procedures US OB DETAIL SINGLE GEST US OB FOLLOW UP PER FETUS [place] Amna Sorensen MD [address] [address] [facility] Maternal And [facility] [address] [place] [address] Referral ID Status Reason Start Date Expiration Date Visits Re quested Visits Authorized [id number] Closed 06/14/2024 07/15/2025 1 1 Encounter Details Date Type Department Care Team (Latest Contact Info) Description 06/21/2024 10:15 AM REPAIR CLERK - 06/21/2024 11:59 PM REPAIR CLERK Hospital Encounter [facility] [place] [address] [place] [address] Amna Sorensen MD [address] [address] Discharge Disposition: Home or Self [...] 112.9 kg (249 lb) 06/21/2024 10:28 AM REPAIR CLERK Height 170.2 cm (5' 7 ) 06/21/2024 10:28 AM REPAIR CLERK Body Mass Index 39 06/21/2024 10:28 AM REPAIR CLERK documented in this encounter Plan of Treatment Upcoming Encounters Date Type Department Care Team (Late st Contact Info) Description 07/22/2024 3:30 PM REPAIR CLERK Appointment [facility] [address] [place] [address] Fernando Alvarenga MD [address] [facility] [place] [address] documented as of this encounter Procedures Procedure Name Priority Date/Time Associated Diagnosis Comments US OB DETAIL SINGLE GEST Routine 06/21/2024 11:08 AM REPAIR CLERK Encounter for ultrasound to assess growth documented in this encounter Results * US OB DETAIL SINGLE GEST (06/21/2024 11:08 AM REPAIR CLERK) Anatomical Region Laterality Modality Pelvis Ultrasound 06/21/2024 10:3 0 AM REPAIR CLERK Narrative 06/21/2024 1:22 PM REPAIR CLERK STL COMP ----- Pat. Name: TAMANNA JEONG Study Date: 06/21/2024 10:30am Pat. NO: [id number] Referring ??MD: AMNA SORENSEN MD Site: [place] Copy Cutter: Azalia Calderon RDMS : 1990 Age: 34 [...] ?Z36.3: Encounter for screening for malformations Procedures ?46161: Ultrasound, uterus, real time with image documentation, [...] 3 lb 5 ?oz EFW by ?Hadlock ([id number]) Head / Face / Neck Biometry: Lime Hide Inspector ? 6.3 ? mm CM ? 7.3 [...] view. RVOT view. LVOT view. 3-vessel view. 6-pczabw-qutpbvb view. Situs. Aortic arch view. ?Ductal arch [...] and date of were verified by the hydrostatic tubing tester before the exam IMPRESSION ----- - Intrauterine [...] ----- OxanaAlessia Name:Ty JEONG Date::30am Pat. NO: [id number] MD:AMNA SORENSEN [facility]Azalia Calderon RDMS :1990Age:34 ----- INDICATION ----- Anatomy [...] delivery Z36.3: Encounter for screening formalformations Procedures 89432: Ultrasound, uterus, real time withimage documentation, and [...] dating:based on stated SHIRA GA by prior [id number] w + 6 d SHIRA by prior [...] 3 lb 5 oz EFW by Hadlock ([id number]) Head / Face / Neck Biometry: Lime Hide Inspector 6.3 mm CM 7.3 mm 69%Nicolaides Extremities [...] 4-chamber view. RVOT view. LVOT view. 3-vesselview. 1-boifxo-pmciiup view. Situs. Aortic arch view. Ductal arch [...] and date of were verified by the hydrostatic tubing tester beforethe exam IMPRESSION ----- - Intrauterine at [...] 28-30 weeks, and greater than 7 mm vuxno02-03 weeks is considered elevated. This occurs in [...]
--- OUTSIDE RECORDS SUMMARY | 2024-07-07 18:36 | XMS_ITS | Encounter Summary ---
Author Organization [facility] Address [address] [place] [address] Care Team Providers Care Steel Erecting Pusher Name Role Phone Unavailable Primary Care Provider Unavailabl e Reason for Referral * Radiology Services (Routine) - Closed Specialty Diagnoses / Procedures Referred By Christel meier Referred To Contact Diagnoses Encounter for screening for malformation Congenital heart defect Procedures US OB DETAIL SINGLE Venus Costello MD [address] [place] [address] Referral ID Status Reason Start Date Expiration Date Visits Re quested Visits Authorized [id number] Closed 01/12/2021 02/12/2022 1 1 Reason for Visit * Radiology Services (Routine) - Closed Specialty Diagnoses / Procedures Referred By Christel meier Referred To Contact Diagnoses Encounter for screening for malformation Congenital heart defect Procedures US OB DETAIL SINGLE Venus Costello MD [address] [place] [address] Referral ID Status Reason Start Date Expiration Date Visits Re quested Visits Authorized [id number] Closed 01/12/2021 02/12/2022 1 1 Encounter Details Date Type Department Care Team (Late st Contact Info) Description 01/29/2021 12:56 PM CDT - 01/29/2021 11:59 PM CDT Hospital Encounter [facility] Maternal and Health [facility] [address] [place] [address] Venus Ferrell MD [address] [place] [address] Discharge Disposition: Home or Self Care Social [...] st Contact Info) Description 07/22/2024 3:30 PM STRAND AND BINDER CONTROLLER Appointment [facility] [address] [place] [address] Fernando Alvarenga MD [address] [facility] [address] [place] [address] documented as of this encounter [...] JEONG Study Date: 01/29/2021 1:23pm Pat. NO: [id number] Referring ??: VENUS FERRELL MD Site: [employer] Officer: Jocelyn Conteh : 1990 Age: 30 ----- [...] Other obesity ?Z3A.22: Weeks Gestation of Procedures ?80616: OB with Detail (Comprehensive) HISTORY ----- OB [...] not be adequately visualized: Heart / Thorax ?2-knjaag-azmkecr view. sex: male. MATERNAL STRUCTURES ----- Cervix ?Visualized ?Approach - Transabdominal: Cervical length 44.3 mm Right Ovary ? Normal ?Size 23 mm x 15 mm x 15 mm. Vol 2.6 cm?? Left Ovary ?Suboptimal COMMENT ----- Patient's name and date of were verified by the peoplesoft hcm developer before the exam IMPRESSION ----- 1. Single [...] ----- Pat. Name:Ty JEONG Date::23pm Pat. NO: [id number] MD:VENUS FERRELL [facility] Conte[facility] :1990Age:30 ----- INDICATION ----- Family [...] Other obesity Z3A.22: Weeks Gestation of Procedures 44485: OB with Detail (Comprehensive) HISTORY ----- OB History 2. Para 0 Miscarriages 1 A1 MATERNAL ASSESSMENT ----- Physical Exam Weight 98 kg. BMI 34.70 kg/m?? METHOD ----- Transabdominal ultrasound examination ----- Werner . Number of fetuses: 1 DATING ----- Method of dating:based on stated SHIRA GA by prior hrsjagmewi22 w + 6 d SHIRA by prior [...] not be adequately visualized: Heart / Thorax 9-obxmew-omgdpgw view. sex: male. MATERNAL STRUCTURES ----- Cervix Visualized Approach - Transabdominal: Cervical length 44.3mm Right Ovary Normal Size 23 mm x 15 mm x 15 mm. Vol 2.6 cm?? Left Ovary Suboptimal COMMENT ----- Patient's name and date of were verified by the peoplesoft hcm developer beforethe exam IMPRESSION ----- 1. Single living [...]
--- OUTSIDE RECORDS SUMMARY | 2024-07-07 18:36 | XMS_ITS | Patient Health Summary ---
Author Organization [facility] Address [address] [facility] [place] [address] Care Team Providers Care Coordinator Volunteer Services Name Role Phone Homa Mckeon MD Primary Care Provider Homa Mckeon MD Unavailable Note from [facility],non-owned Affiliates and Associated Physician Practices is amultiple site organization consisting of ambulatory clinics and hospital sitesin [place], [place], [place] and [place]. This disclosure is being madepursuant to the Care Everywhere program and may not contain all information available regarding this patient. Last updated 18.[facility] Allergies No known active allergies Medications * [...] CDT Narrative 03/26/2021 10:32 AM CDT ? [facility] ? Maternal & Care Center ?PHONE: ??FAX: Pat. Name: ?TAMANNA JEONG Pat. No: ?[id number] Study Date: ?? 03/26/2021 ??9:54am , Age: ? 1990, 31 Pregnancies: ?? 2, Para 0, Ab 1 Height: ? 66 in Weight: ? 217 lb LMP: ?Unknown GA by US: ? 31w3d ?? SHIRA: 05/25/2021 GA Selected: ??30w6d (From Known E) SHIRA: ?05/29/2021 Referring MD: Flavia Ferrell MD Outbound Supervisor: ??Kita Beckwith RDMS CPT4: ? 11301 BMI: ?35.02 Hist/Ind: ? Uterine size greater than dates ?MOB- hx VSD, no surgery required ? echo done @ [facility] ?NIPT: low risk ?Class II Obesity MEASUREMENTS & AGE ? GROWTH EVALUATION Measurement ??GA ? Range ? Srce %for GA Ratios ----- ---- ------- BPD ??8.1 cm 32w3d (17u8n-50k0z) Hadl BPD 84% FL/BPD 0.73 (0.71 - 0.87) HC ??29.7 cm 32w6d (09r8p-57i8i) Hadl HC ??67% FL/AC ??0.21 (0.20 - 0.24) AC ??28.2 cm 32w1d (32w4b-25o3z) Hadl AC ??82% HC/AC ??1.05 (0.97 - 1.16) FL ?? 5.9 cm 30w5d (75m1d-65z5n) Hadl FL ??29% CI ? 0.78 (0.70 - 0.86) HL ?? 5.7 cm 33w2d (78q6q-19s1i) Jovi HL ??90% Cere 3.8 cm 31w1d (00c7g-39w5b) Hill Cere56% GA for sonogram 31w3d (48c6l-62l6o) ?? Weight Estimate: based on (BPD,HC,AC,FL) Hadlock [...] a ECHO has been previously done at [facility] IMPRESSION: Single, live intrauterine at 30w6d ?? size is within normal limits ?? Amniotic fluid volume: within normal limits ?? Incomplete anatomy No major malformations were seen within the limitations of ultrasound RECOMMEND: Ultrasound as clinically indicated Thank you for allowing us they opportunity to care for your patient Melvin Urias MD <Electronic Signature> ??03/26/2021 10:28am Flavia Ferrell MD [facility] ORDERABLES * (ABNORMAL) CULTURE STREP GROUP A [...] CDT 09/17/2016 Narrative Resulting Agency Comment [facility] [address] ??Critical access hospital [phone] Anthony Jerez APRN-IRONWORKER MACHINE OPERATOR LAB - MICROBIOLOG Y ORDERABLES [facility] ACCOUNT BILL [address] [place] [address] * STREP A SCREEN (09/16/2016 4:07 PM CDT) Strep A Rapid POCT Negative Negative Strep A Internal Control Present Lot # [id number] Expiration Date 07 18 2018 Throat ENTIRE THROAT (SURFACE REGION OF NECK) / Unknown 09/16/2016 4:07 PM CDT Anthony Jerez APRN-[facility] LAB - POINT OF CA RE ORDERABLES * STREP A SCREEN DIRECT (01/15/2016 12:59 PM CDT) Only the most recent of2 resultswithin the time period is included. Rapid Strep A NEGATIVE NEGATIVE 01/15/2016 1:07 PM CDT [facility]ab (specimen) ENTIRE THROAT (SURFACE REGION OF NECK) / Unknown 01/15/2016 12:59 PM CDT 01/15/2016 12:59 PM CDT Elly Pickard PA-C LAB - MICROBIOLOGY ORDERABLES [facility] [address] [place] [address] Care Teams Coordinator Volunteer Services Relationship Specialty Start Date End Date Homa Mckeon MD [address] [place] [address] PCP - General 03/27/21 Homa Mckeon MD [address] [place] [address] Family Medicine 03/27/21
--- OUTSIDE RECORDS SUMMARY | 2024-07-07 18:36 | XMS_ITS | Encounter Summary ---
Author Organization [facility] Address [address] [facility] [place] [address] Care Team Providers Care Claim Processor Name Role Phone Homa Mckeon MD Primary [...] on filedocumented in this encounter Care Teams Claim Processor Relationship Specialty Start Date End Date Homa Mckeon MD [address] [place] [address] PCP - General Family Medicine 09/16/16 03/26/21 documented as of this encounter
--- OUTSIDE RECORDS SUMMARY | 2024-07-07 18:36 | XMS_ITS | Encounter Summary ---
Author Organization [facility] Address [address] [facility] [address] [address] Attn: Epic Prelude ADT JC CANTU [address] Care Team Providers Care Health And Safety Trainer Name Role Phone Unavailable Primary Care Provider [...] st Contact Info) Description 07/22/2024 3:30 PM RAILWAY HEAD TENDER Appointment [facility] M[facility] [place] [address] [place] [address] Fernando Alvarenga MD [address] [facility] [address] [place] [address] documented as of this encounter Visit Diagnoses Not on filedocumented in this encounter
--- OUTSIDE RECORDS SUMMARY | 2024-07-07 18:36 | XMS_ITS | Encounter Summary ---
Author Organization [facility] Address [address] [facility] [place] [address] Care Team Providers Care Body Finisher Name Role Phone Unknown, Provider Primary Care Provider Homa Sepulveda MD Primary Care Provider [phone] Encounter Details Date Type Department Care Team (Late st Contact Info) Description 01/13/2016 Orders Historic [facility] - Laboratory [address] [place] [address] Acute pharyngitis Social History Tobacco Use Types [...] Alla Parker MD LAB - MICROBIOLOGY ORDERABLES [facility] [address] [place] [address] documented in this encounter Visit Diagnoses Diagnosis Acute pharyngitis documented in this encounter Care Teams Body Finisher Relationship Specialty Start Date End Date Unknown, Provider PCP - General 01/13/16 09/15/16 Homa Mckeon MD [address] [place], [place] [address] PCP - General Family Medicine 09/16/16 03/26/21 documented as of this encounter
--- OUTSIDE RECORDS SUMMARY | 2024-07-07 18:36 | XMS_ITS | Encounter Summary ---
Author Organization [facility] Address [address] [place] [address] Care Team Providers Care Corporate Development Analyst Name Role Phone Unknown, Provider Primary Care Provider Homa Sepulveda MD Primary Care Provider [phone] Encounter Details Date Type Department Care Team (Late st Contact Info) Description 01/15/2016 Orders Historic [facility] - Laboratory [address] [place] [address] Acute pharyngitis Social History Tobacco Use Types [...] Elly Pickard PA-C LAB - MICROBIOLOGY ORDERABLES [facility] [address] [place] [address] documented in this encounter Visit Diagnoses Diagnosis Acute pharyngitis documented in this encounter Care Teams Corporate Development Analyst Relationship Specialty Start Date End Date Unknown, Provider PCP - General 01/13/16 09/15/16 Homa Mckeon MD [address] [place], [place] [address] PCP - General Family Medicine 09/16/16 03/26/21 documented as of this encounter
--- OUTSIDE RECORDS SUMMARY | 2024-07-07 18:36 | XMS_ITS | Encounter Summary ---
Author Organization [facility] Address [address] [facility] [place] [address] Care Team Providers Care Assurance Officer Name Role Phone Hoam Mckeon MD Primary Care Provider Reason for Visit * Reason Comments Sore Throat Encounter Details Date Type Department Care Team (Late st Contact Info) Description 09/16/2016 10:00 AM CDT Office Visit [facility] AT [address] [address] Provider, [facility] Acute pharyngitis, unspecified etiology (Primary Dx) [...] Patient Instructions * Patient Instructions* Anthony Jerez APRN-HIGHWAY MAINTAINER - 09/16/2016 4:09 PM CDT Pharyngitis PHOTOGRAPHY INSTRUCTOR: Pharyngitis , or sore throat, is inflammation [...] are unavailable, use an alcohol based hand air marshal. Follow up with your healthcare provider as directed: Write down your questions so you remember to ask them during your visits. ?? 2016 HAM[employer]. Information is for End User's use only and may not be sold, redistributed or otherwise used for commercial purposes. All illustrations and images included in CareNotes?? are the copyrighted property of [employer], [employer]. or [employer]. The above information is an in home aide only. It is not intended as medical [...] Strep A INTERNAL CONTROL Present Lot Number [id number] Expiration Date 07 18 2018 documented in [...] CDT 09/17/2016 Narrative Resulting Agency Comment [facility] [address] [facility] ??[facility] [phone] Anthony JOHNSON LAB - MICROBIOLOG Y ORDERABLES [facility] ACCOUNT BILL [address] [place] [address] * STREP A SCREEN (09/16/2016 4:07 PM CDT) Strep A Rapid POCT Negative Negative Strep A Internal Control Present Lot # [id number] Expiration Date 07 18 2018 Throat ENTIRE THROAT (SURFACE REGION OF NECK) / Unknown 09/16/2016 4:07 PM CDT [address]ADILLOH[address]HW[address] MAINTAINER LAB - POINT OF CA RE ORDERABLES documented in this encounter Visit Diagnoses Diagnosis Acute pharyngitis, unspecified etiology- Primary documented in this encounter Care Teams Assurance Officer Relationship Specialty Start Date End Date Homa Mckeon MD [address] [place], [place] [address] PCP - General Family Medicine 09/16/16 03/26/21 documented as of this encounter
--- OUTSIDE RECORDS SUMMARY | 2024-07-07 18:36 | XMS_ITS | Referral Summary ---
Author Organization [facility] Address [address] [facility] [place] [address] Care Team Providers Care Yard Laborer Name Role Phone Homa Mckeon MD Primary Care Provider [phone] Homa Mckeon MD Unavailable Source Comments [facility],non-owned Affiliates and Associated Physician Practices is amultiple site organization consisting of ambulatory clinics and hospital sitesin [place], [place], [place] and [place]. This disclosure is being madepursuant to the Care Everywhere program and may not contain all information available regarding this patient. Last updated 18.[facility] Allergies No known active allergies Medications * [...] of Treatment Not on file Care Teams Yard Laborer Relationship Specialty Start Date End Date Homa Mckeon MD [address] [place] [address] PCP - General 03/27/21 Homa Mckeon MD [address] [place] [address] Family Medicine 03/27/21
== END 2024-06-30 18:04 | disposition home or self-care (01) ==
PROVIDERS: Emergency Provider Physician Assistant; PCP Family Medicine
DX: O99.513 Diseases of the respiratory system complicating pregnancy, third trimester (principal); J20.5 Acute bronchitis due to respiratory syncytial virus; Z20.822 Contact with and (suspected) exposure to COVID-19; O99.210 Obesity complicating pregnancy, unspecified trimester; E66.9 Obesity, unspecified; O99.343 Other mental disorders complicating pregnancy, third trimester; F41.9 Anxiety disorder, unspecified; F32.A Depression, unspecified; O26.893 Other specified pregnancy related conditions, third trimester; E88.819 Insulin resistance, unspecified; O99.891 Other specified diseases and conditions complicating pregnancy; Q21.9 Congenital malformation of cardiac septum, unspecified; Z3A.30 30 weeks gestation of pregnancy; Z87.440 Personal history of urinary (tract) infections; Z79.899 Other long term (current) drug therapy; Z79.84 Long term (current) use of oral hypoglycemic drugs
CPT/HCPCS: 71045; 87637; 99283

== ENCOUNTER 2024-07-21 16:14 | Outpatient (CLI) | payer OTHER, SELFPAY ==
[2024-07-21 16:57] LABS: Basophils Absolute Auto 0.1 K/mm3 (0.0-0.1); Basophils Percent Auto 0.5 % (0.2-1.2); Eosinophils Absolute Auto 0.2 K/mm3 (0-0.3); Eosinophils Percent Auto 1.8 % (0-4.4); Hematocrit 33.8 % (37.0-47.0); Hemoglobin 11.2 g/dL (12.0-15.0); Immature Granulocyte Absolute 0.14 K/mm3 (0.00-0.031); Immature Granulocyte Percent A 1.3 % (0-0.5); Lymphocytes Absolute Auto 2.69 K/mm3 (0.9-3.2); Lymphocytes Percent Auto 24.3 % (18.3-44.2); Mean Corpuscular HGB Conc 33.1 g/dl (32-36); Mean Corpuscular Hemoglobin 29.2 pg (26-34); Mean Platelet Volume 9.8 fl (7.4-10.4); Monocytes Absolute Auto 0.6 K/mm3 (0.1-0.6); Monocytes Percent Auto 5.1 % (2.6-8.5); Neutrophils Absolute Auto 7.4 K/mm3 (1.3-6.7); Platelet Count Result 253 k/mm3 (150-375); Red Blood Count 3.84 M/mm3 (4.2-5.4); Red Cell Distribution Width 13.7 % (11.5-14.5); White Blood Count 11.1 K/mm3 (4.5-10.0)
[2024-07-21 17:50] LABS: HIV 1/2 Ab P24 Ag Result Negative (Negative)
[2024-07-22 07:49] LABS: Rapid Plasma Reagin Non-Reactive (NonReactive)
== END 2024-07-21 16:15 | disposition home or self-care (01) ==
LOC: ANHLAB 16:16
PROVIDERS: PCP Family Medicine; Visit Provider Obstetrics & Gynecology
DX: Z34.90 Encounter for supervision of normal pregnancy, unspecified, unspecified trimester (principal)
CPT/HCPCS: 36415; 85025; 86592; 86703; G0432

== ENCOUNTER 2024-07-27 07:02 | Outpatient (CLI) | payer OTHER, SELFPAY ==
[2024-07-27 07:34] LABS: Glucose Fasting Gestational 92 mg/dL (>/=95)
[2024-07-27 09:04] LABS: Glucose 1 Hour Gest 140 mg/dL (>/=180)
[2024-07-27 10:14] LABS: Glucose 2 Hour Gest 130 mg/dL (>/= 155)
[2024-07-27 11:00] LABS: Glucose 3 Hour Gest 112 mg/dL (>/=140)
--- OUTSIDE RECORDS SUMMARY | 2024-07-29 15:30 | XMS_ITS | Clinical Summary ---
Author Organization [facility] Address [address] [place] [address] Care Team Providers Care Channel Marketing Program Manager Name Role Phone Homa Mckeon MD Primary Care Provider [phone] Homa Mckeon MD Unavailable Source Comments [facility],non-owned Affiliates and Associated Physician Practices is amultiple site organization consisting of ambulatory clinics and hospital sitesin [place], [place], [place] and [place]. This disclosure is being madepursuant to the Care Everywhere program and may not contain all information available regarding this patient. Last updated 18.[facility] Allergies No known active allergies Medications * [...] of 3 - 19+ 3-dose series) 2009 COVID-19 VACCINE (2023-2 5 season) 2024 09/21/2020, 08/30/2020 INFLUENZA VACCINE (#1) 2024 DEPRESSION SCREENING 07/07/2024 ZOSTER VACCINE (1 of 2) 2040 HIB VACCINE Aged Out No longer eligi ble based on patient's age to complete this topic HPV VACCINE Aged Out No longer eligi ble based on patient's age to complete this topic MENINGOCOCCAL (Group B) VACCINE Aged Out No longer eligible b ased on patient's age to complete this topic MENINGOCOCCAL VACCINE Aged Out No joão albino eligible based on patient's age to complete this topic PNEUMOCOCCAL VACCINE Aged Out No long er eligible based on patient's age to complete this topic Care Teams Channel Marketing Program Manager Relationship Specialty Start Date End Date Homa Mckeon MD [address] [place] [address] PCP - General 03/27/21 Homa Mckeon MD [address] [place] [address] Family Medicine 03/27/21
--- OUTSIDE RECORDS SUMMARY | 2024-07-29 15:30 | XMS_ITS | Clinical Summary ---
Author Organization [facility] Address [address] [place] [address] Phone Care Team Providers Care Principal Developer Name Role Phone Unavailable Primary Care Provider Unavailabl e Encounters Date Type Department Care Team Description 07/28/2024 External Device Data STL ABSTRACTION Provider, Abstract 07/22/2024 3:30 PM BUILDING CODE ADMINISTRATOR - 07/22/2024 11:59 PM BUILDING CODE ADMINISTRATOR Hospital Encounter [facility] [address] [place] [address] Fernando Alvarenga MD Discharge Disposition: Home or Self Care 07/21/2024 External Device Data STL ABSTRACTION Provider, Abstract 06/22/2024 External Device Data STL ABSTRACTION Provider, Abstract 06/21/2024 10:15 AM BUILDING CODE ADMINISTRATOR - 06/21/2024 11:59 PM BUILDING CODE ADMINISTRATOR Hospital Encounter [facility] [address] [place] [address] Amna Sorensen MD Discharge Disposition: Home or Self Care from Last 3 Months Social History Tobacco Use Types Packs/Day Years Used Date Smoking Tobacco: Never Assessed Comments Unknown Sex and Gender Information Value Date Recorded Sex Assigned at Not on file Legal Sex Female 2:35 PM CDT Gender Identity Not on file Sexual Orientation Not on file Last Filed Vital Signs Vital Sign Reading Time Taken Comments Blood Pressure - - Pulse - - Temperature - - Respiratory Rate - - Oxygen Saturation - - Inhaled Oxygen Concentration - - Weight 112.9 kg (249 lb) 06/21/2024 10:28 AM BUILDING CODE ADMINISTRATOR Height 170.2 cm (5' 7 ) 06/21/2024 10:28 AM BUILDING CODE ADMINISTRATOR Body Mass Index 39 06/21/2024 10:28 AM BUILDING CODE ADMINISTRATOR Plan of Treatment Upcoming Encounters Date Type Department Care Team (Late st Contact Info) Description 08/05/2024 7:00 AM BUILDING CODE ADMINISTRATOR Appointment [facility] [address] [place] [address] Paxton Owusu MD [address] [place] [address] [place] [address] 08/16/2024 3:00 PM BUILDING CODE ADMINISTRATOR Appointment [facility] [address] [place] [address] [phone] Paxton Owusu MD [address] [place] [address] [place] [address] Health Maintenance Due Date Last Done Comments DTAP/TDAP/TD VACCINES (1 - Tdap) 2009 HEPATITIS B VACCINES (1 of 3 - 19+ 3-dose series) 2009 CERVICAL CANCER SCREENING 2020 INFLUENZA VACCINE (#1) 2024 Preventative Visit- Commercial 07/07/2024 HPV VACCINES Aged Out No longer eligi ble based on patient's age to complete this topic Procedures Procedure Name Priority Date/Time Associated Diagnosis Comments US OB FOLLOW UP PER FETUS Routine 07/22/2024 4:16 PM BUILDING CODE ADMINISTRATOR Large for dates Obesity affecting , antepartum, second trimester Pyelectasis of fetus on ultrasound US OB DETAIL SINGLE GEST Routine 06/21/2024 11:08 AM BUILDING CODE ADMINISTRATOR Encounter for ultrasound to assess growth from Last 3 Months Results * US OB FOLLOW UP PER FETUS (07/22/2024 4:16 PM BUILDING CODE ADMINISTRATOR) Anatomical Region Laterality Modality Pelvis Ultrasound 07/22/2024 3:45 PM BUILDING CODE ADMINISTRATOR Narrative 07/22/2024 4:42 PM BUILDING CODE ADMINISTRATOR STL FOLLOW UP ----- Pat. Name: TAMANNA VITAL Study Date: 07/22/2024 3:45pm Pat. NO: [id number] Referring ??MD: AMNA SORENSEN MD Site: [place] Education Associate: Kimberly Vasquez RDMS : 1990 Age: 34 ----- INDICATION ----- Maternal Obesity (BMI<40) Complicating Uterine Size-Date Discrepancy Maternal Care for Low Transverse Scar from Previous Delivery (Previous ) Anxiety, Maternal Screening, Other Specified CODING ----- Diagnoses ? Z3A.32: Weeks of gestation ?Z36.89: Encounter to establish gestational age using ultrasound ?O26.843: Uterine size-date discrepancy complicating ?O99.213: Obesity complicating ?O99.343: Other mental disorders complicating ?O34.211: Maternal care for low transverse scar from previous delivery Procedures ?68548: Ultrasound, uterus, real time with image documentation, follow up, transabdominal ?approach per fetus HISTORY ----- OB History ? 5. Para 1 ?T1A3L1 MATERNAL ASSESSMENT ----- Physical Exam ? Initial weight 107 kg, 236 lb. Initial BMI 38.09 kg/m?? METHOD ----- Transabdominal ultrasound examination ----- Werner . Number of fetuses: 1 DATING ----- GA by prior assessment 32 w + 2 d SHIRA by prior assessment: 09/14/2024 Ultrasound examination on: 07/22/2024 GA by U/S based upon: AC, BPD, EFW, Femur, HC GA by U/S 35 w + 5 d SHIRA by U/S: 08/21/2024 Method of dating: Restore dating from previous exam Assigned: based on stated SHIRA, selected on 06/21/2024 Assigned GA 32 w + 2 d Assigned SHIRA: 09/14/2024 BIOMETRY ----- BPD ?87.4 ?mm ?35w 2d ?98% ?Hadlock OFD ?113.9 ? mm ?39w 0d ?>99% ?Carlin HC ? 321.4 ? mm ?36w 2d ?97% ?Hadlock AC ? 336.4 ? mm ?37w 4d ?>99% ?Hadlock Femur ?64.6 ?mm ?33w 2d ?67% ?Hadlock HC / AC ?0.96 ?6% ?Nicolaides Weight Calculation: EFW ? 2,859 ?g ?36w 1d ? >99% ?Hadlock EFW (lb,oz) ? 6 lb 5 ? oz EFW by ?Hadlock ([id number]) Head / Face / Neck Biometry: Inner IOD ?20.5 ?mm Extremities / Bony Struc Biometry: FL / BPD ?0.74 FL / HC ? 0.20 FL / AC ? 0.19 GENERAL EVALUATION ----- Cardiac activity present. FHR 155 bpm. movements: present. Presentation: cephalic Placenta: Placental site: anterior Umbilical cord: Insertion site: placental insertion: normal Amniotic fluid: Amount of AF: polyhydramnios. MVP 7.6 cm. VAUGHN 25.0 cm. Q1 5.9 cm, Q2 7.6 cm, Q3 7.1 cm, Q4 4.4 cm ANATOMY ----- The following structures appear normal: Head / Neck ? Cranium. Lateral ventricles. Cavum septi pellucidi. Face ?Lips. Nose. Orbits. Heart / Thorax ?RVOT view. ?Diaphragm. Abdomen ? Stomach. Kidneys. Bladder. GROWTH OVERVIEW ----- Exam date ? GA ?BPD (mm) ? HC (mm) ?AC (mm) ?FL (mm) ?HL (mm) ? EFW (g) 06/21/2024 ?27w 6d ?74.8 ?94% ?270.9 ? 73% ?266.2 ?98% ? 54.7 ?66% ?49.8 ?80% ? 1,489 ? 97% 07/22/2024 ?32w 2d ?87.4 ?98% ?321.4 ? 97% ?336.4 ?>99% ?64.6 ?67% ? 2,859 ? >99% COMMENT ----- Patient's name and date of were verified by the engine setter prior to the exam IMPRESSION ----- -Single living fetus with a gestational age of 32w 2d based on the reported dates. -cephalic presentation. -The EFW is 2859 g which is at the >99%. The abdominal circumference is at the >99%. The size is measuring large for gestational age. -Unremarkable limited anatomy noted to extent of ultrasound views. -Mild polyhydramnios (VAUGHN of 25 cm, MVP of 7.6 cm) -The placenta is anterior Recommend: Limited sonogram in 2 weeks to assess VAUGHN Follow up growth in 4 weeks Thank you for allowing us to participate in the care of this patient. Procedure Note Paxton Owusu MD - 07/22/2024 STL FOLLOW UP ----- Oxana. Name:Ty VITAL Date::45pm Pat. NO: [id number] MD:AMNA SORENSEN [facility] Vas[facility] RDMS :1990Age:34 ----- INDICATION ----- Maternal Obesity (BMI<40) Complicating Uterine Size-Date Discrepancy Maternal Care for Low Transverse Scar from Previous Delivery (Previous ) Anxiety, Maternal Screening, Other Specified CODING ----- Diagnoses Z3A.32: Weeks of gestation Z36.89: Encounter to establish gestational ageusing ultrasound O26.843: Uterine size-date discrepancycomplicating O99.213: Obesity complicating O99.343: Other mental disorders complicatingpregnancy O34.211: Maternal care for low transverse scarfrom previous delivery Procedures 15562: Ultrasound, uterus, real time withimage documentation, follow up, transabdominal approach per fetus HISTORY ----- OB History 5. Para 1 T1A3L1 MATERNAL ASSESSMENT ----- Physical Exam Initial weight 107 kg, 236 lb. Initial BMI 38.09kg/m?? METHOD ----- Transabdominal ultrasound examination ----- Werner . Number of fetuses: 1 DATING ----- GA by prior feljpczizf21 w + 2 d SHIRA by prior assessment:09/14/2024 Ultrasound examination on:07/22/2024 GA by U/S based upon:AC, BPD, EFW, Femur, HC GA by U/S35 w + 5 d SHIRA by U/S:08/21/2024 Method of dating:Restore dating from previous exam Assigned:based on stated SHIRA, selected on 06/21/2024 Assigned GA32 w + 2 d Assigned SHIRA:09/14/2024 BIOMETRY ----- BPD 87.4 mm 35w 2d 98%Hadlock OFD 113.9 mm 39w 0d >99%Carlin HC 321.4 mm 36w 2d 97%Hadlock AC 336.4 mm 37w 4d >99%Hadlock Femur 64.6 mm 33w 2d 67%Hadlock HC / AC 0.96 6%Nicolaides Weight Calculation: EFW 2,859 g 36w 1d>99% Hadlock EFW (lb,oz) 6 lb 5 oz EFW by Hadlock ([id number]) Head / Face / Neck Biometry: Inner IOD 20.5 mm Extremities / Bony Struc Biometry: FL / BPD 0.74 FL / HC 0.20 FL / AC 0.19 GENERAL EVALUATION ----- Cardiac activity present. FHR 155 bpm. movements: present.Presentation: cephalic Placenta: Placental site: anterior Umbilical cord: Insertion site: placental insertion: normal Amniotic fluid: Amount of AF: polyhydramnios. MVP 7.6 cm. VAUGHN 25.0 cm. Q15.9 cm, Q2 7.6 cm, Q3 7.1 cm, Q4 4.4 cm ANATOMY ----- The following structures appear normal: Head / Neck Cranium. Lateral ventricles. Cavum septipellucidi. Face Lips. Nose. Orbits. Heart / Thorax RVOT view. Diaphragm. Abdomen Stomach. Kidneys. Bladder. GROWTH OVERVIEW ----- Exam date GA BPD (mm) HC (mm) AC (mm)FL (mm) HL (mm) EFW (g) 06/21/2024 27w 6d 74.8 94% 270.9 73% 266.2 98%54.7 66% 49.8 80% 1,489 97% 07/22/2024 32w 2d 87.4 98% 321.4 97% 336.4 >99%64.6 67% 2,859 >99% COMMENT ----- Patient's name and date of were verified by the engine setter prior tothe exam IMPRESSION ----- -Single living fetus with a gestational age of 32w 2d based on thereported dates. -cephalic presentation. -The EFW is 2859 g which is at the >99%. The abdominal circumference is atthe >99%. The size is measuring large for gestational age. -Unremarkable limited anatomy noted to extent of ultrasound views. -Mild polyhydramnios (VAUGHN of 25 cm, MVP of 7.6 cm) -The placenta is anterior Recommend: Limited sonogram in 2 weeks to assess VAUGHN Follow up growth in 4 weeks Thank you for allowing us to participate in the care of this patient. us Fernando Alvarenga MD US ORDERABLES Final Re sult * US OB DETAIL SINGLE GEST (06/21/2024 11:08 AM BUILDING CODE ADMINISTRATOR) Anatomical Region Laterality Modality Pelvis Ultrasound 06/21/2024 10:3 0 AM BUILDING CODE ADMINISTRATOR Narrative 06/21/2024 1:22 PM BUILDING CODE ADMINISTRATOR STL COMP ----- Pat. Name: TAMANNA JEONG Study Date: 06/21/2024 10:30am Pat. NO: [id number] Referring ??MD: AMNA SORENSEN MD Site: [place] Education Associate: Azalia Calderon RDMS : 1990 Age: 34 [...] ?Z36.3: Encounter for screening for malformations Procedures ?63548: Ultrasound, uterus, real time with image documentation, [...] 3 lb 5 ?oz EFW by ?Hadlock ([id number]) Head / Face / Neck Biometry: Putty Worker ? 6.3 ? mm CM ? 7.3 [...] view. RVOT view. LVOT view. 3-vessel view. 2-adrnhz-zvsnrrx view. Situs. Aortic arch view. ?Ductal arch [...] and date of were verified by the engine setter before the exam IMPRESSION ----- - Intrauterine [...] Owusu MD - 06/21/2024 STL COMP ----- Pat. Name:Ty JEONG Date::30am Pat. NO: [id number] MD:AMNA SORENSEN [facility] Calder[facility] RDMS :1990Age:34 ----- INDICATION ----- [...] delivery Z36.3: Encounter for screening formalformations Procedures 18263: Ultrasound, uterus, real time withimage documentation, and [...] dating:based on stated SHIRA GA by prior oxefqwnlql17 w + 6 d SHIRA by prior [...] 3 lb 5 oz EFW by Hadlock (ZTP-[id number]-FL) Head / Face / Neck Biometry: Putty Worker 6.3 mm CM 7.3 mm 69%Nicolaides Extremities [...] 4-chamber view. RVOT view. LVOT view. 3-vesselview. 4-gkwwyr-uidwzoy view. Situs. Aortic arch view. Ductal arch [...] and date of were verified by the engine setter beforethe exam IMPRESSION ----- - Intrauterine at [...] 28-30 weeks, and greater than 7 mm iuwgk67-67 weeks is considered elevated. This occurs in [...] up in 4 weeks. Amna Sorensen MD ORDERABLES Edited Result - Final from Last 3 Months Insurance * Guarantor: Tamanna Vital Account Type Relation to Patient Date of Phone Billing Address Personal/Family Self [address] [place] [address] ALLEGIAN OPEN ACCESS Member Subscriber Plan / Payer (Ef fective 2024-Present) Name:Tamanna Vital Relation to Subscriber:Spouse Name:Manuel Gabriel Date of :1990 (Home) Address: [address] [place] [address] Payer ID:Not on file Type:HMO Address: [facility] [address] [place] [address]
--- OUTSIDE RECORDS SUMMARY | 2024-07-29 15:30 | XMS_ITS | Patient Health Summary ---
Author Organization [facility] Address [address] [facility] [place] [address] Care Team Providers Care Truck Rental Manager Name Role Phone Homa Mckeon MD Primary Care Provider [phone] Homa Mckeon MD Unavailable Note from [facility],non-owned Affiliates and Associated Physician Practices is amultiple site organization consisting of ambulatory clinics and hospital sitesin [place], [place], [place] and [place]. This disclosure is being madepursuant to the Care Everywhere program and may not contain all information available regarding this patient. Last updated 18.[facility] Allergies No known active allergies Medications * [...] CDT Narrative 03/26/2021 10:32 AM CDT ? [facility] ?PHONE: ??FAX: Pat. Name: ?TAMANNA JEONG Pat. No: ?[id number] Study Date: ?? 03/26/2021 ??9:54am , Age: ? 1990, 31 Pregnancies: ?? 2, Para 0, Ab 1 Height: ? 66 in Weight: ? 217 lb LMP: ?Unknown GA by US: ? 31w3d ?? SHIRA: 05/25/2021 GA Selected: ??30w6d (From Known E) SHIRA: ?05/29/2021 Referring MD: Flavia Ferrell MD Collator Hand: ??Kita Beckwith RDMS CPT4: ? [address] BMI: ?35.02 Hist/Ind: ? Uterine size greater than dates ?MOB- hx VSD, no surgery required ? echo done @ [facility] ?NIPT: low risk ?Class II Obesity MEASUREMENTS & AGE ? GROWTH EVALUATION Measurement ??GA ? Range ? Srce %for GA Ratios ----- ---- ------- BPD ??8.1 cm 32w3d (90g6u-99d6f) Hadl BPD 84% FL/BPD 0.73 (0.71 - 0.87) HC ??29.7 cm 32w6d (99m4d-42v5r) Hadl HC ??67% FL/AC ??0.21 (0.20 - 0.24) AC ??28.2 cm 32w1d (46u3w-18j5y) Hadl AC ??82% HC/AC ??1.05 (0.97 - 1.16) FL ?? 5.9 cm 30w5d (81t8g-75s0b) Hadl FL ??29% CI ? 0.78 (0.70 - 0.86) HL ?? 5.7 cm 33w2d (36b9g-55g8u) Jovi HL ??90% Cere 3.8 cm 31w1d (07i0x-48b9l) Hill Cere56% GA for sonogram 31w3d (44m7c-85e6b) ?? Weight Estimate: based on (BPD,HC,AC,FL) Hadlock [...] a ECHO has been previously done at [facility] IMPRESSION: Single, live intrauterine at 30w6d ?? size is within normal limits ?? Amniotic fluid volume: within normal limits ?? Incomplete anatomy No major malformations were seen within the limitations of ultrasound RECOMMEND: Ultrasound as clinically indicated Thank you for allowing us they opportunity to care for your patient Melvin Urias MD <Electronic Signature> ??03/26/2021 10:28am Flavia Ferrell MD [facility] ORDERABLES * (ABNORMAL) CULTURE STREP GROUP [...] CDT 09/17/2016 Narrative Resulting Agency Comment [facility] [address] ??[facility] [phone] Anthony Jerez APRN-[employer] LAB - MICROBIOLOG Y ORDERABLES [facility] ACCOUNT BILL [address] [place] [address] * STREP A SCREEN (09/16/2016 4:07 PM CDT) Strep A Rapid POCT Negative Negative Strep A Internal Control Present Lot # [id number] Expiration Date 07 18 2018 Throat ENTIRE THROAT (SURFACE REGION OF NECK) / Unknown 09/16/2016 4:07 PM CDT Anthony Jerez APRN-[facility] LAB - POINT OF CA RE ORDERABLES * STREP A SCREEN DIRECT (01/15/2016 12:59 PM CDT) Only the most recent of2 resultswithin the time period is included. Rapid Strep A NEGATIVE NEGATIVE 01/15/2016 1:07 PM CDT [facility] Throat swab (specimen) ENTIRE THROAT (SURFACE REGION OF NECK) / Unknown 01/15/2016 12:59 PM CDT 01/15/2016 12:59 PM CDT Elly Pickard PA-C LAB - MICROBIOLOGY ORDERABLES [facility] [address] [place] [address] Care Teams Truck Rental Manager Relationship Specialty Start Date End Date Homa Mckeon MD [address] [place] [address] PCP - General 03/27/21 Homa Mckeon MD [address] [place] [address] Family Medicine 03/27/21
--- OUTSIDE RECORDS SUMMARY | 2024-07-29 15:30 | XMS_ITS | Referral Summary ---
Author Organization [facility] Address [address] [facility] [place] [address] Care Team Providers Care Chinese Medicine Practitioner Name Role Phone Homa Mckeon MD Primary Care Provider [phone] Homa Mckeon MD Unavailable Source Comments [facility],non-owned Affiliates and Associated Physician Practices is amultiple site organization consisting of ambulatory clinics and hospital sitesin [place], [place], [place] and [place]. This disclosure is being madepursuant to the Care Everywhere program and may not contain all information available regarding this patient. Last updated 18.[facility] Allergies No known active allergies Medications * [...] of Treatment Not on file Care Teams Chinese Medicine Practitioner Relationship Specialty Start Date End Date Homa Mckeon MD [address] [place] [address] PCP - General 03/27/21 Homa Mckeon MD [address] [place] [address] Family Medicine 03/27/21
== END 2024-07-27 07:03 | disposition home or self-care (01) ==
LOC: ANHLAB 07:04
PROVIDERS: PCP Family Medicine; Visit Provider Obstetrics & Gynecology
DX: O40.9XX0 Polyhydramnios, unspecified trimester, not applicable or unspecified (principal); Z3A.00 Weeks of gestation of pregnancy not specified
CPT/HCPCS: 36415; 82951; 82952

== ENCOUNTER 2024-09-01 15:25 | Outpatient (RCR) | payer OTHER, SELFPAY ==
[2024-08-11 16:29] VITALS: BP 107/64; PULSE 80
[2024-08-19 14:53] VITALS: BP 112/67; PULSE 86
[2024-08-25 15:54] VITALS: BP 123/70; PULSE 98
--- NOTE | ~2024-09-01 | US_ITS ---
US OB limited 08/26/2024 16:21 Indication: Evaluate amniotic fluid volume Procedure: High-resolution Limited obstetrical ultrasound Comparison: 05/17/2024 Findings: There is a single living intrauterine in vertex presentation. heart rate 16 0 BPM. Placenta is anterior without previa. Amniotic fluid index is normal measuring 20 cm. Impression: 1: Normal VAUGHN measures 20 cm (normal range for gestational age 7.5-24.4 cm). Reviewed, dictated and finalized at location B. HOLOGY TEACHER Impression: 1: Normal VAUGHN measures 20 cm (normal range for gestational age 7.5-24.4 cm).
--- NOTE | ~2024-09-01 | US_ITS ---
EXAMINATION: US OB limited DATE: 09/01/2024 17:00 INDICATION: Large for gestational age during third trimester . Assess amniotic fluid index. TECHNIQUE: Real-time ultrasound of the pelvis was performed. The interpreting radiologist was not pre sent for the study. COMPARISON: None. FINDINGS: There is a single living fetus in vertex presentation. The placenta is anterior and not low-lying. F etal heart rate is 139 beats per minute (bpm). The amniotic fluid index is 15.7 cm (based on mean of 2 independent measurements of 13.45 cm and 18.01 cm), which is normal (5th%-95%: 7.3-3.9 cm at 38 wee ks estimated gestational age). IMPRESSION: 1. Single living fetus in vertex presentation with heart rate of 139 bpm. 2. Normal amniotic fluid index of 15.7 cm. Reviewed, dictated and finalized at location B. HOUSE OPERATOR IMPRESSION: 1. Single living fetus in vertex presentation with heart rate of 139 bpm . 2. Normal amniotic fluid index of 15.7 cm.
[2024-09-01 17:45] VITALS: BP 115/74; PULSE 80
== END 2024-10-27 17:05 | disposition home or self-care (01) ==
LOC: ANHOBOP 15:25
PROVIDERS: PCP Family Medicine; Visit Provider Obstetrics & Gynecology
DX: O36.60X0 Maternal care for excessive fetal growth, unspecified trimester, not applicable or unspecified (principal)
CPT/HCPCS: 59025; 76815

== ENCOUNTER 2024-09-06 13:14 | Outpatient (CLI) | payer OTHER, SELFPAY ==
[2024-09-06 13:41] LABS: Hematocrit 34.3 % (37.0-47.0); Hemoglobin 11.4 g/dL (12.0-15.0); Mean Corpuscular HGB Conc 33.2 g/dl (32-36); Mean Corpuscular Hemoglobin 28.6 pg (26-34); Mean Corpuscular Volume 86.2 fl (80-100); Mean Platelet Volume 10.2 fl (7.4-10.4); Platelet Count Result 283 k/mm3 (150-375); Red Blood Count 3.98 M/mm3 (4.2-5.4); Red Cell Distribution Width 13.3 % (11.5-14.5); White Blood Count 10.7 K/mm3 (4.5-10.0)
[2024-09-06 14:21] LABS: Syphilis IgG/IgM Antibody Negative (Negative)
[2024-09-06 14:34] LABS: HIV 1/2 Ab P24 Ag Result Negative (Negative)
== END 2024-09-06 13:15 | disposition home or self-care (01) ==
PROVIDERS: PCP Family Medicine; Visit Provider Obstetrics & Gynecology
DX: Z01.812 Encounter for preprocedural laboratory examination (principal)
CPT/HCPCS: 36415; 85027; 86593; 86703; 86850; 86900; 86901; G0432

== ENCOUNTER 2024-09-07 05:34 | Inpatient (IN) | payer OTHER, SELFPAY ==
[2024-09-07] VITALS (48 sets, daily range): BP systolic 99–134; BP diastolic 56–95; PULSE 53–97; RESP 16–18; TEMP 36.1–37.1; O2SAT 95–99; BMI 38.0
--- OUTSIDE RECORDS SUMMARY | 2024-09-07 00:21 | XMS_ITS | Referral Summary ---
Author Organization [facility] Address [address] [facility] [place] [address] Care Team Providers Care Leguillon Debeader Name Role Phone Homa Mckeon MD Primary Care Provider [phone] Homa Mckeon MD Unavailable Source Comments [facility],non-owned Affiliates and Associated Physician Practices is amultiple site organization consisting of ambulatory clinics and hospital sitesin [place], [place], [place] and [place]. This disclosure is being madepursuant to the Care Everywhere program and may not contain all information available regarding this patient. Last updated 18.[facility] Allergies No known active allergies Medications * [...] 77 09/16/2016 4:13 PM CDT Temperature 36.7 C (98.1 F) 09/16/2016 4:13 PM CDT Respiratory Rate 16 09/16/2016 4:13 PM CDT Oxygen Saturation 99% 09/16/2016 4:13 PM CDT Inhaled Oxygen Concentration - - Weight 63.5 kg (140 lb) 09/16/2016 4:13 PM CDT Height 165.1 cm (5' 5 ) 09/16/2016 4:13 PM CDT Body Mass Index 23.3 09/16/2016 4:13 PM CDT Plan of Treatment Not on file Care Teams Leguillon Debeader Relationship Specialty Start Date End Date Homa Mckeon MD [address] [place] [address] PCP - General 03/27/21 Homa Mckeon MD [address] [place] [address] Family Medicine 03/27/21
--- OUTSIDE RECORDS SUMMARY | 2024-09-07 00:21 | XMS_ITS | Clinical Summary ---
Author Organization [facility] Address [address] [place] [address] Care Team Providers Care Physical Meteorologist Name Role Phone Homa Mckeon MD Primary Care Provider [phone] Homa Mckeon MD Unavailable Source Comments [facility],non-owned Affiliates and Associated Physician Practices is amultiple site organization consisting of ambulatory clinics and hospital sitesin [place], [place], [place] and [place]. This disclosure is being madepursuant to the Care Everywhere program and may not contain all information available regarding this patient. Last updated 18.[facility] Allergies No known active allergies Medications * [...] age to complete this topic Care Teams Physical Meteorologist Relationship Specialty Start Date End Date Homa Mckeon MD [address] [place] [address] PCP - General 03/27/21 Homa Mckeon MD [address] [place] [address] Family Medicine 03/27/21
--- OUTSIDE RECORDS SUMMARY | 2024-09-07 00:21 | XMS_ITS | Patient Health Summary ---
Author Organization [facility] Address [address] [place] [address] Care Team Providers Care Internet Marketing Specialist Name Role Phone Homa Mckeon MD Primary Care Provider [phone] Homa Mckeon MD Unavailable Note from [facility],non-owned Affiliates and Associated Physician Practices is amultiple site organization consisting of ambulatory clinics and hospital sitesin [place], [place], [place] and [place]. This disclosure is being madepursuant to the Care Everywhere program and may not contain all information available regarding this patient. Last updated 18.[facility] Allergies No known active allergies Medications * [...] AM CDT Narrative 03/26/2021 10:32 AM CDT [facility] PHONE: FAX: Pat. Name: TMAANNA JEONG. No: [id number] Study Date: 03/26/2021 9:54am , Age: 09 1990, 31 Pregnancies: 2, Para 0, Ab 1 Height: 66 in Weight: 217 lb LMP: Unknown GA by US: 31w3d SHIRA: 05/25/2021 GA Selected: 30w6d (From Known E) SHIRA: 05/29/2021 Referring MD: Flavia Ferrell MD Guest Advisor: Kita Beckwith RDMS CPT4: 72175 BMI: 35.02 Hist/Ind: Uterine size greater than dates MOB- hx VSD, no surgery required echo done @ [facility] NIPT: low risk Class II Obesity MEASUREMENTS & AGE GROWTH EVALUATION Measurement GA Range Srce %for GA Ratios ----- ---- ------- BPD 8.1 cm 32w3d (54w5j-01m8n) Hadl BPD 84% FL/BPD 0.73 (0.71 - 0.87) HC 29.7 cm 32w6d (16g1c-68p2p) Hadl HC 67% FL/AC 0.21 (0.20 - 0.24) AC 28.2 cm 32w1d (88i6j-36z7o) Hadl AC 82% HC/AC 1.05 (0.97 - 1.16) FL 5.9 cm 30w5d (74y9e-60m8h) Hadl FL 29% CI 0.78 (0.70 - 0.86) HL 5.7 cm 33w2d (05c7e-09i2b) Jovi HL 90% Cere 3.8 cm 31w1d (75t2o-19p3s) Kar Cere56% GA for sonogram 31w3d (59q4g-85k6u) Weight Estimate: based on (BPD,HC,AC,FL) Hadlock Weight: 1844 gm (1575-2113gm) Had : 4lbs, 1oz Normal: 1724 gm (1292-2155gm) Had Wt% 71% for 30w6d Heart Rate: 153 bpm Amniotic Fluid Index: 14.4cm (08.8-23.7) Q1: 6.1cm Q2: 1.2cm Q3: 2.9cm Q4: 4.3cm EVAL, PLACENTA Presentation: cephalic Umbilical Cord: 3 Vessels Placenta: anterior Heart Rate: 153 bpm Amniotic Fluid Volume: normal Anatomy!Normal!Abnormal!Suboptimal!Prev. Seen!Comments Cranium ! x ! ! ! ! Mdl (CSP/Thal! x ! ! ! ! Ventricles ! x ! ! ! ! Choroid Plexu! x ! ! ! ! Cerebellum ! x ! ! ! ! Cerebellar Ve! x ! ! ! ! Cisterna M. ! x ! ! ! ! Orbits ! x ! ! ! ! Profile ! x ! ! ! ! Nasal Bone ! x ! ! ! ! Lip ! x ! ! ! ! Maxilla ! x ! ! ! ! Mandible ! x ! ! ! ! Neck ! ! ! x ! ! Spine ! x ! ! ! ! Lungs ! x ! ! ! ! 4 Chamber Hea! x ! ! ! ! LVOT ! ! ! x ! ! RVOT ! x ! ! ! ! 3 Vessel View! x ! ! ! ! 3 Vessel Trac! x ! ! ! ! Cross-over ! x ! ! ! ! Ductal Arch ! ! ! x ! ! Aortic Arch ! ! ! x ! ! Caval View ! x ! ! ! ! Situs ! x ! ! ! ! Diaphragm ! x ! ! ! ! Stomach ! x ! ! ! ! Liver ! x ! ! ! ! Bowel ! x ! ! ! ! Kidneys ! x ! ! ! ! Bladder ! x ! ! ! ! 3 Vessel Cord! x ! ! ! ! Cord In! ! ! x ! ! Upper Extremi! x ! ! ! ! Hands ! ! ! x ! !unremarkable left, suboptimal right Lower Extremi! x ! ! ! ! Feet ! x ! ! ! ! External Karen! ! ! ! !Male Placental Cor! x ! ! ! ! CLINICAL SUMMARY Study Number: 1 A single fetus is seen in cephalic presentation. The measurements today are consistent with appropriate size for the SHIRA provided. The SHIRA is based on a prior outside ultrasound (unconfirmed). The amniotic fluid volume is within normal limits. The anatomy as well as a ECHO has been previously done at [facility] IMPRESSION: Single, live intrauterine at 30w6d size is within normal limits Amniotic fluid volume: within normal limits Incomplete anatomy No major malformations were seen within the limitations of ultrasound RECOMMEND: Ultrasound as clinically indicated Thank you for allowing us they opportunity to care for your patient Melvin Urias MD <Electronic Signature> 03/26/2021 10:28am Flavia Ferrell MD [facility] ORDERABLES * (ABNORMAL) CULTURE STREP [...] CDT 09/17/2016 Narrative Resulting Agency Comment [facility] [address] [id number] Anthony Jerez [facility] - MICRO[facility]OLOG Y ORDERABLES [facility] ACCOUNT BILL [address] [place] [address] * STREP A SCREEN (09/16/2016 4:07 PM CDT) Pathologist [facility] Strep A Rapid POCT Negative Negative Strep A Internal Control Present Lot # [id number] Expiration Date 07 18 2018 Throat ENTIRE THROAT (SURFACE REGION OF NECK) / Unknown 09/16/2016 4:07 PM CDT Anthony Jerez [facility] - POINT OF CA RE ORDERABLES * STREP A SCREEN DIRECT (01/15/2016 12:59 PM CDT) Only the most recent of2 resultswithin the time period is included. [facility] Rapid Strep A NEGATIVE NEGATIVE 01/15/2016 1:07 PM CDT [facility] Throat swab (specimen) ENTIRE THROAT (SURFACE REGION OF NECK) / Unknown 01/15/2016 12:59 PM CDT 01/15/2016 12:59 PM CDT Elly Pickard PA-C LAB - MICROBIOLOGY ORDERABLES [facility] [address] [place] [address] Care Teams Internet Marketing Specialist Relationship Specialty Start Date End Date Mike, K Max, MD [address] [place] [address] PCP - General 03/27/21 Homa Mckeon MD [address] [place] [address] Family Medicine 03/27/21
--- OUTSIDE RECORDS SUMMARY | 2024-09-07 00:21 | XMS_ITS | Clinical Summary ---
Author Organization [facility] Address [address] [place] [address] Phone Care Team Providers Care Feed Research Aide Name Role Phone Unavailable Primary Care Provider Unavailabl e Encounters Date Type Department Care Team Description 08/24/2024 External Device Data STL ABSTRACTION Provider, Abstract 08/16/2024 2:55 PM SUBSURFACE AUGMENTEE OPERATOR - 08/16/2024 11:59 PM SUBSURFACE AUGMENTEE OPERATOR Hospital Encounter [facility] Narayan Tolentino [address] [place] [phone] Paxton Owusu MD Discharge Disposition: Home or Self Care 08/05/2024 6:57 AM SUBSURFACE AUGMENTEE OPERATOR - 08/05/2024 11:59 PM SUBSURFACE AUGMENTEE OPERATOR Hospital Encounter [facility] Narayan Tolentino [address] [place] [phone] Paxton Owusu MD Discharge Disposition: Home or Self Care 08/03/2024 External Device Data STL ABSTRACTION Provider, Abstract 07/28/2024 External Device Data STL ABSTRACTION Provider, Abstract 07/28/2024 External Device Data STL ABSTRACTION Provider, Abstract 07/22/2024 3:30 PM SUBSURFACE AUGMENTEE OPERATOR - 07/22/2024 11:59 PM SUBSURFACE AUGMENTEE OPERATOR Hospital Encounter [facility] 2022 Narayan Tolentino [address] [place] [phone] Fernando Alvarenga MD Discharge Disposition: Home or Self Care 07/21/2024 External Device Data STL ABSTRACTION Provider, Abstract 06/22/2024 External Device Data STL ABSTRACTION Provider, Abstract 06/21/2024 10:15 AM SUBSURFACE AUGMENTEE OPERATOR - 06/21/2024 11:59 PM SUBSURFACE AUGMENTEE OPERATOR Hospital Encounter [facility] 2022 Narayan Tolentino [address] [place] [phone] Todd Sorensen MD Discharge Disposition: [...] 112.9 kg (249 lb) 06/21/2024 10:28 AM SUBSURFACE AUGMENTEE OPERATOR Height 170.2 cm (5' 7 ) 06/21/2024 10:28 AM SUBSURFACE AUGMENTEE OPERATOR Body Mass Index 39 06/21/2024 10:28 AM SUBSURFACE AUGMENTEE OPERATOR Plan of Treatment Health Maintenance Due Date [...] US OB FOLLOW UP PER FETUS Routine 08/16/2024 3:29 PM SUBSURFACE AUGMENTEE OPERATOR Large for dates Obesity affecting , antepartum, second trimester Pyelectasis of fetus on ultrasound US OB LTD 1 OR MORE FETUSES Routine 08/05/2024 7:11 AM SUBSURFACE AUGMENTEE OPERATOR Large for dates Obesity affecting , antepartum, second trimester Pyelectasis of fetus on ultrasound US OB FOLLOW UP PER FETUS Routine 07/22/2024 4:16 PM SUBSURFACE AUGMENTEE OPERATOR Large for dates Obesity affecting , antepartum, second trimester Pyelectasis of fetus on ultrasound US OB DETAIL SINGLE GEST Routine 06/21/2024 11:08 AM SUBSURFACE AUGMENTEE OPERATOR Encounter for ultrasound to assess growth from Last 3 Months Results * US OB FOLLOW UP PER FETUS (08/16/2024 3:29 PM SUBSURFACE AUGMENTEE OPERATOR) Only the most recent of2 resultswithin the time period is included. Anatomical Region Laterality Modality Pelvis Ultrasound 08/16/2024 3:00 PM SUBSURFACE AUGMENTEE OPERATOR Narrative 08/16/2024 3:27 PM SUBSURFACE AUGMENTEE OPERATOR STL FOLLOW UP ----- Pat. Name: RAJENDRA LARSEN Study Date: 08/16/2024 3:00pm Pat. NO: [id number] Referring MD: TODD SORENSEN MD Site: [place] Grounds Cleaner: Otilia Vicente RDMS : 1990 Age: 34 ----- INDICATION ----- Maternal Obesity (BMI<40) Complicating Uterine Size-Date Discrepancy Maternal Care for Low Transverse Scar from Previous Delivery (Previous ) Anxiety, Maternal Screening, Other Specified CODING ----- Diagnoses Z3A.35: Weeks of gestation Z36.89: Encounter to establish gestational age using ultrasound O26.843: Uterine size-date discrepancy complicating O99.213: Obesity complicating O99.343: Other mental disorders complicating O34.211: Maternal care for low transverse scar from previous delivery Procedures 52984: Ultrasound, uterus, real time with image documentation, follow up, transabdominal approach per fetus HISTORY ----- OB History 5. Para 1 T1A3L1 MATERNAL ASSESSMENT ----- Physical Exam Initial weight 107 kg, 236 lb. Initial BMI 38.09 kg/m METHOD ----- Transabdominal ultrasound examination ----- Werner . Number of fetuses: 1 DATING ----- GA by prior assessment 35 w + 6 d SHIRA by prior assessment: 09/14/2024 Ultrasound examination on: 08/16/2024 GA by U/S based upon: AC, BPD, Femur, HC GA by U/S 38 w + 5 d SHIRA by U/S: 08/25/2024 Method of dating: Restore dating from previous exam Assigned: based on stated SHIRA, selected on 06/21/2024 Assigned GA 35 w + 6 d Assigned SHIRA: 09/14/2024 BIOMETRY ----- BPD 95.2 mm 38w 6d >99% Hadlock OFD 117.2 mm -/- 98% Carlin HC 339.4 mm 39w 0d 89% Hadlock AC 363.6 mm 40w 2d >99% Hadlock Femur 71.3 mm 36w 4d 63% Hadlock HC / AC 0.93 7% Nicolaides Weight Calculation: EFW 3,712 g -/- >99% Hadlock EFW (lb,oz) 8 lb 3 oz EFW by Hadlock ([id number]) Head / Face / Neck Biometry: Cargoman 5.4 mm Extremities / Bony Struc Biometry: FL / BPD 0.75 FL / HC 0.21 FL / AC 0.20 GENERAL EVALUATION ----- Cardiac activity present. FHR 144 bpm. movements: present. Presentation: cephalic Placenta: Placental site: anterior Umbilical cord: Cord vessels: 3 vessel cord. Insertion site: placental insertion: normal Amniotic fluid: Amount of AF: normal amount. MVP 8.2 cm. VAUGHN 23.9 cm. Q1 8.2 cm, Q2 5.7 cm, Q3 5.0 cm, Q4 5.0 cm ANATOMY ----- The following structures appear normal: Head / Neck Cranium. Midline falx. Cavum septi pellucidi. Heart / Thorax Diaphragm. Abdomen Stomach. Kidneys. Bladder. GROWTH OVERVIEW ----- Exam date GA BPD (mm) HC (mm) AC (mm) FL (mm) HL (mm) EFW (g) 06/21/2024 27w 6d 74.8 94% 270.9 73% 266.2 98% 54.7 66% 49.8 80% 1,489 97% 07/22/2024 32w 2d 87.4 98% 321.4 97% 336.4 >99% 64.6 67% 2,859 >99% 08/16/2024 35w 6d 95.2 >99% 339.4 89% 363.6 >99% 71.3 63% 3,712 >99% COMMENT ----- Patient's name and date of were verified by the paleobotanist prior to the exam IMPRESSION ----- Impression: Werner viable intrauterine at 35w 6d in cephalic presentation. Estimated weight is 3712 g (>99%ile) with abdominal circumference at the >99%ile. Total amniotic fluid volume is wnl, DVP is mildly increased, (Amniotic fluid index = 23.9 cm, maximum vertical pocket = 8.2 cm). No major malformations identified within the limitations of ultrasound. Recommendation: Can consider GTT if not done recently due to LGA and mild poly. Continue testing with primary OB. Thank you for inviting us to participate in your patient's care Procedure Note Lizz Scales MD - 08/16/2024 STL FOLLOW UP ----- Pat. Name:Ty LARSEN Date:53:00pm Pat. NO: [id number] MD:TODD SORENSEN [facility] Vic[facility] RDMS :1990Age:34 ----- INDICATION ----- Maternal Obesity (BMI<40) Complicating Uterine Size-Date Discrepancy Maternal Care for Low Transverse Scar from Previous Delivery (Previous ) Anxiety, Maternal Screening, Other Specified CODING ----- Diagnoses Z3A.35: Weeks of gestation Z36.89: Encounter to establish gestational ageusing ultrasound O26.843: Uterine size-date discrepancycomplicating O99.213: Obesity complicating O99.343: Other mental disorders complicatingpregnancy O34.211: Maternal care for low transverse scarfrom previous delivery Procedures 66245: Ultrasound, uterus, real time withimage documentation, follow up, transabdominal approach per fetus HISTORY ----- OB History 5. Para 1 T1A3L1 MATERNAL ASSESSMENT ----- Physical Exam Initial weight 107 kg, 236 lb. Initial BMI 38.09kg/m METHOD ----- Transabdominal ultrasound examination ----- Werner . Number of fetuses: 1 DATING ----- GA by prior [id number] w + 6 d SHIRA by prior assessment:09/14/2024 Ultrasound examination on:08/16/2024 GA by U/S based upon:AC, BPD, Femur, HC GA by U/S38 w + 5 d SHIRA by U/S:08/25/2024 Method of dating:Restore dating from previous exam Assigned:based on stated SHIRA, selected on 06/21/2024 Assigned GA35 w + 6 d Assigned SHIRA:09/14/2024 BIOMETRY ----- BPD 95.2 mm 38w 6d >99%Hadlock OFD 117.2 mm -/- 98%Carlin HC 339.4 mm 39w 0d 89%Hadlock AC 363.6 mm 40w 2d >99%Hadlock Femur 71.3 mm 36w 4d 63%Hadlock HC / AC 0.93 7%Nicolaides Weight Calculation: EFW 3,712 g -/- >99%Hadlock EFW (lb,oz) 8 lb 3 oz EFW by Hadlock ([id number]-FL) Head / Face / Neck Biometry: Cargoman 5.4mm Extremities / Bony Struc Biometry: FL / BPD 0.75 FL / HC 0.21 FL / AC 0.20 GENERAL EVALUATION ----- Cardiac activity present. FHR 144 bpm. movements: present.Presentation: cephalic Placenta: Placental site: anterior Umbilical cord: Cord vessels: 3 vessel cord. Insertion site: placentalinsertion: normal Amniotic fluid: Amount of AF: normal amount. MVP 8.2 cm. VAUGHN 23.9 cm. Q18.2 cm, Q2 5.7 cm, Q3 5.0 cm, Q4 5.0 cm ANATOMY ----- The following structures appear normal: Head / Neck Cranium. Midline falx. Cavum septi pellucidi. Heart / Thorax Diaphragm. Abdomen Stomach. Kidneys. Bladder. GROWTH OVERVIEW ----- Exam date GA BPD (mm) HC (mm) AC (mm)FL (mm) HL (mm) EFW (g) 06/21/2024 27w 6d 74.8 94% 270.9 73% 266.2 98%54.7 66% 49.8 80% 1,489 97% 07/22/2024 32w 2d 87.4 98% 321.4 97% 336.4 >99%64.6 67% 2,859 >99% 08/16/2024 35w 6d 95.2 >99% 339.4 89% 363.6 >99%71.3 63% 3,712 >99% COMMENT ----- Patient's name and date of were verified by the paleobotanist prior tothe exam IMPRESSION ----- Impression: Werner viable intrauterine at 35w 6d in cephalicpresentation. Estimated weight is 3712 g (>99%ile) with abdominal circumference atthe >99%ile. Total amniotic fluid volume is wnl, DVP is mildly increased, (Amnioticfluid index = 23.9 cm, maximum vertical pocket = 8.2 cm). No major malformations identified within the limitations of ultrasound. Recommendation: Can consider GTT if not done recently due to LGA and mild poly. Continue testing with primary OB. Thank you for inviting us to participate in your patient's care us Paxton Owusu MD US ORDERABLES Final Result * US OB LTD 1 OR MORE FETUSES (08/05/2024 7:11 AM SUBSURFACE AUGMENTEE OPERATOR) Anatomical Region Laterality Modality Pelvis Ultrasound 08/05/2024 6:58 AM SUBSURFACE AUGMENTEE OPERATOR Narrative 08/05/2024 8:10 AM SUBSURFACE AUGMENTEE OPERATOR STL LIMITED ----- Pat. Name: RAJENDRA LARSEN Study Date: 08/05/2024 6:58am Pat. NO: [id number] Referring MD: TODD SORENSEN MD Site: [place] Grounds Cleaner: Kimberly Vasquez RDMS : 1990 Age: 34 ----- INDICATION ----- Maternal Obesity (BMI<40) Complicating Uterine Size-Date Discrepancy Maternal Care for Low Transverse Scar from Previous Delivery (Previous ) Anxiety, Maternal Screening, Other Specified CODING ----- Diagnoses Z3A.34: Weeks of gestation Z36.89: Encounter to establish gestational age using ultrasound O26.843: Uterine size-date discrepancy complicating O99.213: Obesity complicating O99.343: Other mental disorders complicating O34.211: Maternal care for low transverse scar from previous delivery Procedures 02192: Ultrasound, uterus, real time with image documentation, limited one or more fetuses HISTORY ----- OB History 5. Para 1 T1A3L1 MATERNAL ASSESSMENT ----- Physical Exam Initial weight 107 kg, 236 lb. Initial BMI 38.09 kg/m METHOD ----- Transabdominal ultrasound examination ----- Werner . Number of fetuses: 1 DATING ----- GA by prior assessment 34 w + 2 d SHIRA by prior assessment: 09/14/2024 Method of dating: Restore dating from previous exam Assigned: based on stated SHIRA, selected on 06/21/2024 Assigned GA 34 w + 2 d Assigned SHIRA: 09/14/2024 GENERAL EVALUATION ----- Cardiac activity present. FHR 153 bpm. movements: present. Presentation: cephalic Placenta: Placental site: anterior Amniotic fluid: Amount of AF: normal amount. MVP 7.3 cm. VAUGHN 19.2 cm. Q1 2.4 cm, Q2 7.3 cm, Q3 3.9 cm, Q4 5.6 cm ANATOMY ----- The following structures appear normal: Heart / Thorax Cardiac rhythm. Abdomen Stomach. Bladder. GROWTH OVERVIEW ----- Exam date GA BPD (mm) HC (mm) AC (mm) FL (mm) HL (mm) EFW (g) 06/21/2024 27w 6d 74.8 94% 270.9 73% 266.2 98% 54.7 66% 49.8 80% 1,489 97% 07/22/2024 32w 2d 87.4 98% 321.4 97% 336.4 >99% 64.6 67% 2,859 >99% COMMENT ----- Patient's name and date of were verified by the paleobotanist prior to the exam. IMPRESSION ----- 1. Single living fetus with a gestational age of 34w 2d, based on the reported clinical dates. 2. The amniotic fluid is normal for gestational age (MVP:7.3 cm , VAUGHN:19.2 cm ). 3. Anterior placenta. No previa/not low-lying. 4. Cephalic presentation. Recommendations: - Continue current plan. Thank you for allowing us to participate in the care of this patient. Procedure Note Letha Schaefer MD - 08/05/2024 STL LIMITED ----- Pat. Name:Ty LARSEN Date:56:58am Pat. NO: [id number] MD:TODD SORENSEN MD [facility]Kimberly Vasquez RDMS :1990Age:34 ----- INDICATION ----- Maternal Obesity (BMI<40) Complicating Uterine Size-Date Discrepancy Maternal Care for Low Transverse Scar from Previous Delivery (Previous ) Anxiety, Maternal Screening, Other Specified CODING ----- Diagnoses Z3A.34: Weeks of gestation Z36.89: Encounter to establish gestational ageusing ultrasound O26.843: Uterine size-date discrepancycomplicating O99.213: Obesity complicating O99.343: Other mental disorders complicatingpregnancy O34.211: Maternal care for low transverse scarfrom previous delivery Procedures 42759: Ultrasound, uterus, real time withimage documentation, limited one or more fetuses HISTORY ----- OB History 5. Para 1 T1A3L1 MATERNAL ASSESSMENT ----- Physical Exam Initial weight 107 kg, 236 lb. Initial BMI 38.09kg/m METHOD ----- Transabdominal ultrasound examination ----- Werner . Number of fetuses: 1 DATING ----- GA by prior [id number] w + 2 d SHIRA by prior assessment:09/14/2024 Method of dating:Restore dating from previous exam Assigned:based on stated SHIRA, selected on 06/21/2024 Assigned GA34 w + 2 d Assigned SHIRA:09/14/2024 GENERAL EVALUATION ----- Cardiac activity present. FHR 153 bpm. movements: present.Presentation: cephalic Placenta: Placental site: anterior Amniotic fluid: Amount of AF: normal amount. MVP 7.3 cm. VAUGHN 19.2 cm. Q12.4 cm, Q2 7.3 cm, Q3 3.9 cm, Q4 5.6 cm ANATOMY ----- The following structures appear normal: Heart / Thorax Cardiac rhythm. Abdomen Stomach. Bladder. GROWTH OVERVIEW ----- Exam date GA BPD (mm) HC (mm) AC (mm)FL (mm) HL (mm) EFW (g) 06/21/2024 27w 6d 74.8 94% 270.9 73% 266.2 98%54.7 66% 49.8 80% 1,489 97% 07/22/2024 32w 2d 87.4 98% 321.4 97% 336.4 >99%64.6 67% 2,859 >99% COMMENT ----- Patient's name and date of were verified by the paleobotanist prior tothe exam. IMPRESSION ----- 1. Single living fetus with a gestational age of 34w 2d, based on thereported clinical dates. 2. The amniotic fluid is normal for gestational age (MVP:7.3 cm , VAUGHN:19.2cm ). 3. Anterior placenta. No previa/not low-lying. 4. Cephalic presentation. Recommendations: - Continue current plan. Thank you for allowing us to participate in the care of this patient. us Paxton Owusu MD US ORDERABLES Final Result * US OB DETAIL SINGLE GEST (06/21/2024 11:08 AM SUBSURFACE AUGMENTEE OPERATOR) Anatomical Region Laterality Modality Pelvis Ultrasound 06/21/2024 10:3 0 AM SUBSURFACE AUGMENTEE OPERATOR Narrative 06/21/2024 1:22 PM SUBSURFACE AUGMENTEE OPERATOR STL COMP ----- Pat. Name: RAJENDRA JEONG Study Date: 06/21/2024 10:30am Pat. NO: [id number] Referring MD: TODD SORENSEN MD Site: [place] Grounds Cleaner: Azalia Calderon RDMS : 1990 Age: 34 ----- INDICATION ----- Anatomy Survey low risk NIPT Maternal Obesity (BMI<40) Complicating Uterine Size-Date Discrepancy LGA on outside scan Maternal Care for Low Transverse Scar from x 1 Previous Delivery (Previous ) Anxiety, Maternal sertraline Screening, Other Specified insulin resistant / metformin CODING ----- Diagnoses Z3A.27: Weeks of gestation Z36.89: Encounter to establish gestational age using ultrasound O26.842: Uterine size-date discrepancy complicating O99.212: Obesity complicating O99.342: Other mental disorders complicating O34.211: Maternal care for low transverse scar from previous delivery Z36.3: Encounter for screening for malformations Procedures 57636: Ultrasound, uterus, real time with image documentation, and maternal evaluation plus detailed anatomic examination, transabdominal approach HISTORY ----- OB History 5. Para 1 T1A3L1 MATERNAL ASSESSMENT ----- Physical Exam Weight 113 kg. Initial weight 107 kg, 236 lb. BMI 40.19 kg/m . Initial BMI 38.09 kg/m . Weight gain 6 kg, 13 lb METHOD [...] d Assigned SHIRA: 09/14/2024 BIOMETRY ----- BPD 74.8 mm 30w 0d 94% Hadlock OFD 95.5 mm 30w 6d 98% Carlin HC 270.9 mm 29w 4d 73% Hadlock Cerebellum tr 32.7 mm 29w 2d 80% Lopez AC 266.2 mm 30w 5d 98% Hadlock Femur 54.7 mm 28w 6d 66% Hadlock Humerus 49.8 mm 29w 1d 80% Carlin HC / AC 1.02 10% Nicolaides Weight Calculation: EFW 1,489 g 29w 4d 97% Hadlock EFW (lb,oz) 3 lb 5 oz EFW by Hadlock ([id number]) Head / Face / Neck Biometry: Cargoman 6.3 mm CM 7.3 mm 69% Nicolaides Extremities / Bony Struc Biometry: FL / [...] Head / Neck Cranium. Lateral ventricles. Choroid plexus. Midline falx. Cavum septi pellucidi. Cerebellum. Cisterna magna. Thalami. Face Profile. Palate. Heart / Thorax 4-chamber view. RVOT view. LVOT view. 3-vessel view. 9-aerklp-knubyof view. Situs. Aortic arch view. Ductal arch view. Superior vena cava. Inferior vena cava. High short axis view. Cardiac rhythm. Diaphragm. Abdomen Abdominal wall. Stomach. Bladder. Spine Cervical spine. Thoracic spine. Lumbar spine. Sacral spine. Extremities / Arms. Right hand. Left hand. Legs. Right foot. Left foot. Skeleton The following structures could not be adequately visualized: Face Lips. Nose. Orbits. MATERNAL STRUCTURES ----- Cervix Visualized Approach - Transabdominal Right Ovary Normal Size 32 mm x 23 mm x 25 mm. Vol 9.2 cm Left Ovary Suboptimal GROWTH OVERVIEW ----- Exam date GA BPD (mm) HC (mm) AC (mm) FL (mm) HL (mm) EFW (g) 06/21/2024 27w 6d 74.8 94% 270.9 73% 266.2 98% 54.7 66% 49.8 80% 1,489 97% COMMENT ----- Patient's name and date of were verified by the paleobotanist before the exam IMPRESSION ----- - Intrauterine [...] 06/21/2024 STL COMP ----- [place]. Name:Ty JEONG Date::30am Pat. NO: [id number] MD:TODD SORENSEN MD [facility]Azalia Calderon RDMS :1990Age:34 ----- INDICATION ----- [...] delivery Z36.3: Encounter for screening formalformations Procedures [id number]: Ultrasound, uterus, real time withimage documentation, and maternal evaluation plus detailed anatomic examination,transabdominal approach HISTORY ----- OB History 5. Para 1 T1A3L1 MATERNAL ASSESSMENT ----- Physical Exam Weight 113 kg. Initial weight 107 kg, 236 lb. BMI40.19 kg/m . Initial BMI 38.09 kg/m . Weight gain 6 kg, 13 lb METHOD ----- Transabdominal ultrasound examination ----- Werner . Number of fetuses: 1 DATING ----- Method of dating:based on stated SHIRA GA by prior [id number] w + 6 d SHIRA by prior [...] 3 lb 5 oz EFW by Hadlock ([id number]) Head / Face / Neck Biometry: Cargoman 6.3 mm CM 7.3 mm 69%Nicolaides Extremities [...] 4-chamber view. RVOT view. LVOT view. 3-vesselview. 5-tllufd-juvagyc view. Situs. Aortic arch view. Ductal arch [...] 23 mm x 25 mm. Vol 9.2 cm Left Ovary Suboptimal GROWTH OVERVIEW ----- Exam date GA BPD (mm) HC (mm) AC (mm) FL(mm) HL (mm) EFW (g) 06/21/2024 27w 6d 74.8 94% 270.9 73% 266.2 98%54.7 66% 49.8 80% 1,489 97% COMMENT ----- Patient's name and date of were verified by the paleobotanist beforethe exam IMPRESSION ----- - Intrauterine at [...] 28-30 weeks, and greater than 7 mm -04 weeks is considered elevated. This occurs in [...] dilation. Recommend: Follow up in 4 weeks. us Todd Sorensen MD ORDERABLES Edited Result - Final from Last 3 Months Insurance OPEN ACCESS
[2024-09-07] MEDS: ACETAMINOPHEN 500 MG TABLET 1000 MG PO (06:21)
[2024-09-07] MEDS: LACTATED RINGERS 1,000 ML 125 ML IV CONT ×2 (06:23→06:56)
--- NOTE | 2024-09-07 06:52 | P.PNAN_ITS ---
Anes - Initial Pre Proc Eval Procedure: Operation Date: 09/07/24 07:30 Proposed Procedures p Repeat Section - Todd Mendoza MD Date/Time: 09/07/24 06:52 Surgeon: Todd eMndoza MD Pre Op Diagnosis: Patient Data Age: 34 Gender: F Height: 1.7 m Weight: 110 kg Last Vital Signs Temp 36.1 C L 09/07/24 06:10 Pulse 70 09/07/24 06:46 BP 121/73 09/07/24 06:46 O2 Del Method Room Air 09/07/24 06:27 Allergies Allergy/AdvReac Type Severity Reaction Status Date / Time No Known Allergies Allergy Verified 09/02/24 14:52 Home Medications ?Medication ?Instructions ?Recorded ?Confirmed ?Type sertraline 100 mg tablet 100 mg PO DAILY 08/26/22 09/07/24 History metformin 500 mg tablet 500 mg PO BID #30 tabs 12/11/22 09/07/24 Rx vitamin#30 30 mg iron-10 1 cap PO DAILY 06/11/24 09/07/24 History mg iron-folic acid 1 mg-omg3 capsule Patient hx anesthesia problems: none Family hx anesthesia problems: none Results Review: All pre-operative results and documents have been reviewed as part of the pre- operative evaluation. 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, delivered, current hospitalization and not yet delivered Obesity Septal defect, heart Anxiety and depression Depression UTI (urinary tract infection) Surgical History Surgical History [place] teeth removed H/O: History of colposcopy H/O adenoidectomy History of tonsillectomy Family History Family History Grandparent Family history of hypercholesterolemia Hypertension Family history of malignant neoplasm Mother Skin cancer Anxiety Depression Father Depression Grandparent Acute myocardial infarction Grandparent Hyperthyroidism Sibling Depression Other Family history of lung cancer Social History Social History Smoking status: Never smoker Second hand tobacco smoke exposure: No Alcohol intake: current Substance use: never Substance use type: does not use Do You Feel Safe in your Home?: Yes Lack of Transportation: No Lack of Food: Never True Current Housing: I Have Housing Concerned About Future Housing: No Difficulty Paying Gas/Electric Bills: No Difficulty Paying for Meds: No Currently Unemployed: No Education: Bachelor's Degree Difficulty w/ Childcare or Family Care: No Living arrangements: with family Occupation/Education: occupation Gender identity (if verbalized by the patient): Female Spiritual care concerns: No Agree to blood products: Yes Anes - Eval Final PreProcedure Day of Procedure 09/07/24 06:52 Patient weight: obese Heart: regular rate and rhythm Lungs: clear to auscultation Airway: Mallampati scale class II Neurological: alert and oriented Last oral intake: >/= 8 hours ASA classification: II Emergent: no Anesthetic plan: proceed Anesthesia type and monitoring: regional spinal and standard monitoring Results Review: All pre-operative results and documents have been reviewed as part of the pre- operative evaluation. Informed Consent: The patient's anesthetic plan and its attendant risks and benefits were discussed with the patient/family/POA. Questions were solicited and answers provided to the satisfaction of the patient/family/POA.
[2024-09-07] MEDS: FAMOTIDINE 20 MG/2 ML VIAL IV PUSH (06:59)
[2024-09-07] MEDS: ONDANSETRON INJ 4 MG/2 ML VIAL IV PUSH (06:59)
--- NOTE | 2024-09-07 07:12 | P.HP_ITS ---
H&P: HPI History of Present Illness Date/Time: 09/07/24 07:12 Chief Complaint: Repeat section Narrative: She is a 34 y/o admitted for repeat section. She has been counseled regarding risk benefits of repeat versus trial of labor. She has opted for repeat section. PNC significant for transfer in at 28 weeks, she has history of insulin resistance and has been on metformin throughout . She has had 2 normal GTT. She has had isolated renal dilation and isolated polyhydramnios, surveillance testing normal. Fetus measuring LGA. She has h/o SMA carrier partner neg. Review of Systems Review of Systems: All systems reviewed & are unremarkable except as noted in HPI and below Constitutional: Constitutional: Reports no additional constitutional complaints and Denies headache(s) Eyes: Eyes: Denies spots in vision ENT: Reports system reviewed and no additional complaints, except as documented and Denies headache(s) Cardiovascular: Cardiovascular: Denies chest pain and Denies dyspnea Respiratory: Respiratory: Denies dyspnea Gastrointestinal: Gastrointestinal: Reports no additional gastrointestinal complaints Genitourinary: Genitourinary: Reports amenorrhea Musculoskeletal: Musculoskeletal: Reports no additional musculoskeletal complaints Integumentary/Breasts: Skin/Breast: Denies breast mass and Denies rash Neurologic: Denies headache(s) Psychiatric: Psychiatric: Reports no additional psychiatric complaints [facility] Past Medical History Medical History Insulin resistance intolerance to labor, delivered, current hospitalization and not yet delivered Obesity Septal defect, heart Anxiety and depression Depression UTI (urinary tract infection) Surgical History Surgical History (Updated 09/07/24 @ 07:29 by Todd Mendoza MD) [place] teeth removed H/O: History of colposcopy H/O adenoidectomy History of tonsillectomy Family History Family History Grandparent Family history of hypercholesterolemia Hypertension Family history of malignant neoplasm Mother Skin cancer Anxiety Depression Father Depression Grandparent Acute myocardial infarction Grandparent Hyperthyroidism Sibling Depression Other Family history of lung cancer Social History Social History Smoking status: Never smoker Second hand tobacco smoke exposure: No Alcohol intake: current Substance use: never Substance use type: does not use Do You Feel Safe in your Home?: Yes Lack of Transportation: No Lack of Food: Never True Current Housing: I Have Housing Concerned About Future Housing: No Difficulty Paying Gas/Electric Bills: No Difficulty Paying for Meds: No Currently Unemployed: No Education: Bachelor's Degree Difficulty w/ Childcare or Family Care: No Living arrangements: with family Occupation/Education: occupation Gender identity (if verbalized by the patient): Female Spiritual care concerns: No Agree to blood products: Yes Meds Home Medications and Allergies Home Medications ?Medication ?Instructions ?Recorded ?Confirmed ?Type sertraline 100 mg tablet 100 mg PO DAILY 08/26/22 09/07/24 History metformin 500 mg tablet 500 mg PO BID #30 tabs 12/11/22 09/07/24 Rx vitamin#30 30 mg iron-10 1 cap PO DAILY 06/11/24 09/07/24 History mg iron-folic acid 1 mg-omg3 capsule Allergies Allergy/AdvReac Type Severity Reaction Status Date / Time No Known Allergies Allergy Verified 09/02/24 14:52 Vital Signs Vital Signs - 24 hr 09/07/24 06:07 09/07/24 06:10 09/07/24 06:16 Temperature 97 F L Pulse Rate 82 83 Blood Pressure 120/73 122/74 Oxygen Delivery 09/07/24 06:27 09/07/24 06:46 Temperature Pulse Rate 70 Blood Pressure 121/73 Oxygen Delivery Room Air Exam Const: General: no acute distress Eyes: General: appearance normal, both eyes and all related structures Resp: Effort & Inspection: normal respiratory effort Cardio: Rate: regular rate GI: Other: Gravid no fundal tenderness no right upper quadrant pain Skin: General skin exam: no rashes or lesions noted Neuro: Cognition (Neuro): normal cognition Extrem: General: normal to inspection Psych: Mental Status: mental status grossly normal Assessment and Plan Assessment and plan (1) H/O: : Code(s): Z98.891 - History of uterine scar from previous surgery Status: Acute Assessment and Plan: Will proceed with repeat section.
[2024-09-07] MEDS: ceFAZolin 2 GM/D5W 50 ML 2 GM/50 ML BAG IVPB (07:26)
--- NOTE | 2024-09-07 07:30 | WPDHPUPDATE1 ---
History and Physical Update Update Date/Time: 09/07/24 07:30 History and Physical has been reviewed, including an updated exam of the patient. There are NO changes in the patient's condition. Risks, benefits, and alternatives have been discussed and questions answered. Patient agrees to proceed with procedure.
--- NOTE | 2024-09-07 09:13 | P.PCNOB_ITS ---
OB - Delivery Note Procedure Delivery date: 09/08/24 Pre-op diagnosis: Previous Delivery and Other (h/o insulin resistance) Post-op Diagnosis: Same Prior to decision for section, ACOG/SMFM labor guidelines were considered and discussed with the patient and staff. Decision made to proceed with the section.: Yes Procedure Performed: Repeat Surgeon: Todd Mendoza MD Anesthesia type: Spinal Description of Procedure/Findings: Male infant 9lb2oz, apgars 8,8 After informed consent, risks and benefits of the procedure was discussed with the patient. The patient was taken to the operating room where she was placed in the dorsal lithotomy position with leftward tilt. Spinal anesthesia was found to be adequate, she was then prepped and draped in the usual sterile fashion. A Pfannenstiel skin incision was made with a scalpel and carried through to the underlying layer of fascia. The fascia was then nicked in the midline, extending bilaterally. The fascia was very adhesed to muscle, it was dissected off the rectus muscles superiorly and inferiorly. The rectus muscles were in the midline, and peritoneum was identified and entered bluntly. The pelvic organs were visualized. The bladder reflection was well below lower uterine segment area of incision. The bladder blade was then inserted. A low transverse uterine incision was then made with the scalpel and extended with bilateral index fingers in a crescent- shaped fashion. The head was delivered and the rest of the was delivered. The nuchal cord was manually reduced. The nose and mouth suctioned with bulb. The cord was clamped twice and cut. The infant was then handed off to the awaiting pediatric staff. The placenta was then delivered manually. The uterine cavity was sponge curetted. The uterus was then exteriorized. The uterine incision was then closed with 0 vicryl in a running locked fashion. A figure of eight of 0 vicryl at the right of incision was used for hemostasis. Hemostasis noted. A second layer of 0 vicryl was made with multiple figure of eight sutures. The posterior cul de sac was irrigated and cleared of debris. The uterus was then returned to the abdomen. Bilateral gutters were irrigated and cleared off all clots and debris. The uterine incision was inspected and a figure of eight 0 vicryl was used for hemostasis. Hemostasis obtained. Interceed placed on uterine incision and vertically on front of uterus. The muscle bellies were inspected and noted to be hemostatic. The subfascial layer was noted to be hemostatic, and the fascia was closed with 0 Vicryl in a running fashion. The subcutaneous layer was then irrigated. The layer was approximated with 3-0 Vicryl. The skin was closed with 4.0 vicryl on a [place] needle. Dermabond was applied at incision. All instruments, needle, and lap counts were correct x3. The patient was taken to the recovery room in stable condition. Estimated Blood Loss: 415 Urine Output: 100 Drains: No Packing: No Pathology: Yes (placenta and cord) Complications: No immediate complications Condition: Stable Disposition: Floor Baby Infant gender: Male Weight (pounds): 9 Weight (ounces): 2 presentation: vertex position: Right Occiput Anterior Placenta delivery description: Manual Removal Cord Vessel Description: 3 Vessels, Nuchal Cord and Loose score one minute: 8 score five minutes: 8
[2024-09-07] MEDS: OXYTOCIN 30 UNITS/NS 500 ML 30 UNITS/500 ML BAG 125 UNITS IV CONT (09:19)
[2024-09-07] MEDS: diphenhydrAMINE HCl INJ 50 MG/ML VIAL 25 MG IV PUSH (10:45)
[2024-09-07] MEDS: LIDOCAINE 5% PATCH 1 PATCH TRANSDERM (10:50)
[2024-09-07] MEDS: MORPHINE SULFATE (*CRX) 2 MG/ML INJ IV PUSH (10:53)
--- NOTE | 2024-09-07 12:00 | OBPPTRN ---
Patient transferred to post room #285 via stretcher. Support person present. Oriented to unit, room, information board, rooming in, admission packet and security measures. Patient verbalizes understanding.
[2024-09-07] MEDS: ACETAMINOPHEN 325 MG TABLET 650 MG PO ×2 (12:15→18:05)
[2024-09-07] MEDS: KETOROLAC 15 MG/ML VIAL (*BKC) IV PUSH ×2 (12:15→18:05)
[2024-09-07 12:28] LABS: Hepatitis B Surface Antigen Negative (Negative)
[2024-09-07] MEDS: DEXTROSE 5%/0.45% SOD CHL 1,000 ML 125 ML IV CONT (14:01)
[2024-09-07] MEDS: SIMETHICONE 80 MG TAB.CHEW PO ×2 (14:01→17:34)
[2024-09-07] MEDS: LORATADINE 10 MG TABLET PO (14:41)
[2024-09-07] MEDS: metFORMIN HCL 500 MG TABLET PO (17:34)
[2024-09-07] MEDS: DOCUSATE SODIUM 100 MG CAPSULE PO (17:34)
[2024-09-07] MEDS: SERTRALINE HCL 50 MG TABLET 100 MG PO (20:30)
[2024-09-08 00:30] VITALS: BP 104/66; PULSE 67; RESP 18; TEMP 36.8; O2SAT 98
[2024-09-08] MEDS: KETOROLAC 15 MG/ML VIAL (*BKC) IV PUSH ×2 (00:30→05:59)
[2024-09-08] MEDS: ACETAMINOPHEN 325 MG TABLET 650 MG PO ×4 (00:30→23:44)
[2024-09-08 04:28] LABS: Basophils Absolute Auto 0.1 K/mm3 (0.0-0.1); Basophils Percent Auto 0.7 % (0.2-1.2); Eosinophils Absolute Auto 0.2 K/mm3 (0-0.3); Eosinophils Percent Auto 1.7 % (0-4.4); Hematocrit 31.9 % (37.0-47.0); Hemoglobin 10.5 g/dL (12.0-15.0); Immature Granulocyte Absolute 0.08 K/mm3 (0.00-0.031); Immature Granulocyte Percent A 0.8 % (0-0.5); Lymphocytes Absolute Auto 2.37 K/mm3 (0.9-3.2); Mean Corpuscular HGB Conc 32.9 g/dl (32-36); Mean Corpuscular Hemoglobin 29.3 pg (26-34); Mean Corpuscular Volume 89.1 fl (80-100); Mean Platelet Volume 10.8 fl (7.4-10.4); Monocytes Absolute Auto 0.6 K/mm3 (0.1-0.6); Monocytes Percent Auto 6.2 % (2.6-8.5); Neutrophils Percent Auto 67.6 % (45.5-73.1); Platelet Count Result 238 k/mm3 (150-375); Red Blood Count 3.58 M/mm3 (4.2-5.4); Red Cell Distribution Width 13.6 % (11.5-14.5); White Blood Count 10.3 K/mm3 (4.5-10.0)
[2024-09-08 07:50] VITALS: BP 109/65; PULSE 72; RESP 16; TEMP 36.3; O2SAT 97
[2024-09-08] MEDS: LORATADINE 10 MG TABLET PO (09:10)
[2024-09-08] MEDS: MULTIVIT/MIN/PREN/FOL AC/IRON TABLET 1 TAB PO (09:10)
[2024-09-08] MEDS: metFORMIN HCL 500 MG TABLET PO ×2 (09:10→16:23)
[2024-09-08] MEDS: DOCUSATE SODIUM 100 MG CAPSULE PO ×2 (09:10→16:23)
[2024-09-08] MEDS: IBUPROFEN 600 MG TABLET PO ×3 (11:35→23:44)
[2024-09-08] MEDS: HYDROcodone/acetaminophen (*CRX) 10-325 MG TABLET 1 TAB PO ×3 (11:35→21:05)
[2024-09-08] MEDS: SIMETHICONE 80 MG TAB.CHEW PO ×2 (11:35→16:22)
--- NOTE | 2024-09-08 12:25 | PC.NURSE ---
This patient left on therapeutic leave pass to visit at [facility] NICU.
--- NOTE | 2024-09-08 14:10 | WPDANLDPN2 ---
Anes-Prog Note L&D Date/Time: 09/08/24 14:10 Comfortable throughout: section Neuraxial method: spinal Epidural/Spinal procedure site: clean & non-tender Neuro status: Neuro function grossly intact. Cardiovascular status: normal Respiratory status: normal Airway patency: baseline Mental status: baseline Post-Op hydration status: normal Vital Signs: Last Vital Signs Temp 36.3 C L 09/08/24 07:50 Pulse 72 09/08/24 07:50 Resp 16 09/08/24 07:50 BP 109/65 09/08/24 07:50 Pulse Ox 97 09/08/24 07:50 O2 Del Method Room Air 09/08/24 07:00 Pain score (VAS): 07/16 I/O: Intake & Output 09/07/24 09/08/24 09/08/24 23:59 07:59 15:59 Intake Total 1500 550 0 Output Total 1750 1500 Balance -250 -950 0 Post-procedural complaints: none Patient feedback: Patient satisfied with anesthetic care. Other findings: Assessment per RN, pt is out on pass to see baby
--- NOTE | 2024-09-08 14:11 | WPDANLDNPN2 ---
Anes-Prog Note L&D-Neuraxial Date/Time: 09/08/24 14:11 Neuraxial medications: intrathecal PF morphine Opiod-related complaints: none Patient feedback: Patient satisfied with post-operative pain management. Comments: Assessment per RN as pt is out on pass to see baby
[2024-09-08] MEDS: LIDOCAINE 5% PATCH 1 PATCH TRANSDERM (16:23)
[2024-09-08 17:00] VITALS: BP 106/65; PULSE 80; RESP 18; TEMP 36.4; O2SAT 98
[2024-09-08 21:05] VITALS: BP 98/59; PULSE 73; RESP 18; TEMP 36.5; O2SAT 100
[2024-09-08] MEDS: SERTRALINE HCL 50 MG TABLET 100 MG PO (21:05)
[2024-09-09] MEDS: IBUPROFEN 600 MG TABLET PO ×2 (05:00→12:02)
[2024-09-09] MEDS: LORATADINE 10 MG TABLET PO (05:00)
[2024-09-09] MEDS: ACETAMINOPHEN 325 MG TABLET 650 MG PO ×2 (05:00→12:02)
--- NOTE | 2024-09-09 05:27 | P.PNOB_ITS ---
OB - PN: Subj Subjective Date/time seen: 09/08/24 0830 Patient comments: pain well controlled, tolerating diet and flatus present OB - PN: Obj Data Labs 09/08/24 03:13 OB - PN A/P Assessment and Plan (1) Delivery by section: Status: Acute Assessment and Plan: POD1 doing well. Will give pass to see baby. Routine post op care. Time Spent With Patient Time: Total time spent is greater than 50% in coordination of care (as documented) at patient's floor/unit and/or counseling patient: Review of Systems 2 Review of Systems: All systems reviewed & are unremarkable except as noted in HPI and below Exam 2 Const: General: comfortable and no acute distress Eyes: General: appearance normal, both eyes and all related structures Resp: Effort & Inspection: normal respiratory effort Auscultation: clear to auscultation bilaterally Cardio: Rate: regular rate GI: Other: +BS soft, fundus firm below umbilicus, d ressing clean dry intact Extrem: General: normal to inspection, no calf tenderness and edema bilateral (1+) Psych: Mental Status: mental status grossly normal
[2024-09-09 07:55] VITALS: BP 116/72; PULSE 72; RESP 18; TEMP 36.1; O2SAT 97
[2024-09-09] MEDS: DOCUSATE SODIUM 100 MG CAPSULE PO (08:18)
[2024-09-09] MEDS: metFORMIN HCL 500 MG TABLET PO (08:18)
[2024-09-09] MEDS: MEASLES,MUMPS,RUBELLA VACCINE 0.5 ML VIAL SUB-Q (08:18)
[2024-09-09] MEDS: MULTIVIT/MIN/PREN/FOL AC/IRON TABLET 1 TAB PO (08:18)
[2024-09-09] MEDS: SIMETHICONE 80 MG TAB.CHEW PO ×2 (08:18→12:02)
--- NOTE | 2024-09-09 08:21 | PM.OBPNVD ---
OB - PN: Subj Subjective Date/time seen: 09/09/24 08:21 Patient comments: pain well controlled, tolerating diet and flatus present baby status: other (pt reports baby is doing well) OB - PN: Obj Data Labs 09/08/24 03:13 OB - PN A/P Assessment and Plan (1) Delivery by section: Status: Acute Assessment and Plan: POD2. She is doing well. She request discharge today. Baby is getting discharged from [facility]. Discussed discharge precautions. Time Spent With Patient Time: Total time spent is greater than 50% in coordination of care (as documented) at patient's floor/unit and/or counseling patient: Exam Const: General: comfortable and no acute distress Resp: Effort & Inspection: normal respiratory effort GI: Other: dressing clean dry and intact fundus firm below umbilicus Extrem: General: normal to inspection and no calf tenderness (mild swelling) Psych: Mental Status: mental status grossly normal Affect: normal affect
[2024-09-09] MEDS: HYDROcodone/acetaminophen (*CRX) 5-325 MG TABLET 1 TAB PO ×2 (08:23→12:02)
--- NOTE | 2024-09-09 08:23 | P.DS_ITS ---
DS: Admitting Diagnosis Discharge Date 09/09/24 Admitting Diagnosis Elective repeat section DS: Discharge Diagnosis Discharge Diagnosis (1) Delivery by section: Status: Acute OB - DS: Summary Hospital Course Hospital Course: She was admitted for planned elective repeat section. She had an uncomplicated section. She did well post op. Baby was transferred to [facility] on day of surgery. On postop day one had flatus, adequate pain control, ambulating, tolerating regular diet. She did go on a pass to see baby. On post op day two she continued to do well. Desired discharge. Discharge precautions discussed. OB Procedures : Ultrasound OB Procedures Intrapartum: OB Procedures: : None Peripartum Data Infant Delivery Method: Section Procedures: Procedures Operation Date: 09/07/24 07:30 Actual Procedure Side Surgeon p Repeat Section Todd Mendoza MD complications: none Status at Discharge Functional status at discharge: independent ambulation Time Spent with Patient Time attestation: Total time spent providing and/or coordinating discharge services: Exam Const: General: cooperative Orientation/consciousness: oriented to person, oriented to place and oriented to time HENMT: Face/Nose/Sinus: Normal external nose present Eyes: General: appearance normal, both eyes and all related structures Resp: Effort & Inspection: normal respiratory effort GI: Inspection: normal to inspection Skin: General skin exam: normal color Neuro: General: oriented to person, oriented to place and oriented to time Extrem: General: normal to inspection and no calf tenderness Psych: Appearance: grossly normal Mental Status: mental status grossly normal Discharge Plan Discharge Attending physician on discharge: Todd Mendoza Consulting providers: Helga Lora Discharging Clinician: Todd Mendoza Anticipated Discharge Date/Time: 09/09/24 08:26 Patient Disposition: Home, Self-Care Activity: may shower, no driving and pelvic rest Diet: regular Discharge Instructions: Education: Mom and Baby Guide Given to: Mother Follow-Up: Call your delivering provider's office for an appointment to be seen in: 2 Weeks BREAST CARE: * Wear a snug supportive bra. * For engorgement discomfort: Bottle Feeding: * May apply ice packs ABDOMINAL INCISION: * Allow incision to air dry * Do NOT use lotions or powders on your incision * When showering, allow soap and water to run over the incision, but do not wash incision PERINEAL CARE: * Until bleeding stops, use your guido bottle after urinating * Change your pad frequently throughout the day * You may take sitz baths several times a day (fill your bathtub with warm water and soak for 20 minutes.) Do NOT bathe in the water * No tub baths until seen by your physician - You may shower ACTIVITY: * Rest as much as possible. * Do not exercise or lift anything heavier than your baby (such as laundry or other children.) * Avoid stairs or driving as much as possible. * Do not put anything into the vagina. No douching, tampons, or sexual activity until seen by physician. NOTIFY PHYSICIAN IF YOU HAVE ANY QUESTIONS OR IF ANY OF THE FOLLOWING SYMPTOMS OCCUR: * If your incision becomes red, swollen, or more painful than what you have experienced in the hospital. * If your vaginal bleeding becomes foul smelling. * If your vaginal bleeding becomes more heavy than a period or if your bleeding changes from pink to bright red. However, you may pass an occasional walnut- sized clot once or twice for the first week . * If you experience a sharp, shooting pain in your calves. * If you discover a hard, reddened area on your breast or if you experience flu- like symptoms. DIET: * Eat regular, well-balanced meals. * Drink plenty of fluids daily. If , drink to thirst. May take Miralax daily until bowel movements are regular. Daily vitamin. Patient Language: Maltese Stand Alone Forms: General Discharge Information Follow-up/Referrals: Todd Mendoza MD [Physician] - 2 Weeks (Call for appointment) Discharge Medications: New hydrocodone-acetaminophen 5-325 mg Tablet 1 tablet PO Q3H PRN (Reason: Breakthrough Pain Rated 4-6) Qty: 25 0RF Continued sertraline 100 mg tablet 100 mg PO DAILY metformin 500 mg tablet 500 mg PO BID Qty: 30 0RF PNV #[id number] 30 mg iron-10 mg iron-1 mg capsule 1 cap PO DAILY Date of admission: 09/07/24 05:34 Primary Care Provider: PHYSICIAN,GEOLOGICAL ENGINEERING TEACHER Admitting Provider: Todd Mendoza Attending physician on admission: Todd Mendoza Condition: Stable
== END 2024-09-09 12:18 | disposition home or self-care (01) | DRG 788 ==
LOC: ANHLDR 05:38 → ANHOB2 12:08
PROVIDERS: Admitting Provider Obstetrics & Gynecology; Visit Provider Obstetrics & Gynecology
PROC: (CPT 59514; principal; 2024-09-07 07:30)
DX: O34.211 Maternal care for low transverse scar from previous cesarean delivery (principal); Z37.0 Single live birth; Z3A.39 39 weeks gestation of pregnancy; O69.81X0 Labor and delivery complicated by cord around neck, without compression, not applicable or unspecified; O36.63X0 Maternal care for excessive fetal growth, third trimester, not applicable or unspecified; O40.3XX0 Polyhydramnios, third trimester, not applicable or unspecified
CPT/HCPCS: 36415; 85025; 87340; 90710; A9270; J0690; J1200; J1885; J2270; J2274; J2405; J2590; J7120

== ENCOUNTER 2024-09-13 09:31 | Outpatient (CLI) | payer OTHER, SELFPAY ==
--- NOTE | ~2024-09-13 | US_ITS ---
EXAMINATION: US venous doppler [facility] DATE: 09/13/2024 10:10 INDICATION: Left lower limb swelling. TECHNIQUE: Grayscale ultrasound images without and with compression and Doppler ultrasound images of the left lower extremity veins were obtained. COMPARISON: None. FINDINGS: The visualized portions of left common femoral vein, profunda (deep) femoral vein, femoral vein, popl iteal vein, peroneal veins, posterior tibial veins, and greater saphenous vein outflow are patent. IMPRESSION: 1. No deep venous thrombosis. Reviewed, dictated and finalized at location B.
--- OUTSIDE RECORDS SUMMARY | 2024-09-13 10:45 | XMS_ITS | Patient Health Summary ---
Author Organization [facility] Address [address] [place] [address] Care Team Providers Care Store Hand Name Role Phone Homa Mckeon MD Primary Care Provider [phone] Homa Mckeon MD Unavailable Note from [facility],non-owned Affiliates and Associated Physician Practices is amultiple site organization consisting of ambulatory clinics and hospital sitesin [place], [place], [place] and [place]. This disclosure is being madepursuant to the Care Everywhere program and may not contain all information available regarding this patient. Last updated 18.[facility] Allergies No known active allergies Medications * [...] fetus inconsistent with dates in third t ester Social History Tobacco Use Types Packs/Day Years [...] AM CDT Narrative 03/26/2021 10:32 AM CDT [facility] PHONE: FAX: Pat. Name: TAMANNA JEONG Pat. No: [id number] Study Date: 03/26/2021 9:54am , Age: 09 1990, 31 Pregnancies: 2, Para 0, Ab 1 Height: 66 in Weight: 217 lb LMP: Unknown GA by US: 31w3d SHIRA: 05/25/2021 GA Selected: 30w6d (From Known E) SHIRA: 05/29/2021 Referring MD: Flavia Ferrell MD Licensed Direct Entry Midwife: Kita Beckwith RDMS CPT4: 83464 BMI: 35.02 Hist/Ind: Uterine size greater than dates MOB- hx VSD, no surgery required echo done @ [facility] NIPT: low risk Class II Obesity MEASUREMENTS & AGE GROWTH EVALUATION Measurement GA Range Srce %for GA Ratios ----- ---- ------- BPD 8.1 cm 32w3d (81d5k-92f1g) Hadl BPD 84% FL/BPD 0.73 (0.71 - 0.87) HC 29.7 cm 32w6d (09i3y-19f0w) Hadl HC 67% FL/AC 0.21 (0.20 - 0.24) AC 28.2 cm 32w1d (83x6d-06k1n) Hadl AC 82% HC/AC 1.05 (0.97 - 1.16) FL 5.9 cm 30w5d (95a5i-62t0v) Hadl FL 29% CI 0.78 (0.70 - 0.86) HL 5.7 cm 33w2d (31s8r-11r7l) Jovi HL 90% Cere 3.8 cm 31w1d (19d6c-42d4o) Kar Cere56% GA for sonogram 31w3d (69s6i-70g6m) Weight Estimate: based on (BPD,HC,AC,FL) [place] Weight: [...] a ECHO has been previously done at [facility] IMPRESSION: Single, live intrauterine at 30w6d size is within normal limits Amniotic fluid volume: within normal limits Incomplete anatomy No major malformations were seen within the limitations of ultrasound RECOMMEND: Ultrasound as clinically indicated Thank you for allowing us they opportunity to care for your patient Melvin Urias MD <Electronic Signature> 03/26/2021 10:28am Flavia Ferrell MD [facility] ORDERABLES * (ABNORMAL) CULTURE STREP GROUP [...] CDT 09/17/2016 Narrative Resulting Agency Comment [facility] [address] [facility] [id number] Anthony Jerez [facility] - MICROBIOLOG Y ORDERABLES [facility] ACCOUNT BILL [address] [place] [address] * STREP A SCREEN (09/16/2016 4:07 PM CDT) [facility] Strep A Rapid POCT Negative Negative Strep A Internal Control Present Lot # [id number] Expiration Date 07 18 2018 Throat ENTIRE THROAT (SURFACE REGION OF NECK) / Unknown 09/16/2016 4:07 PM CDT Anthony Jerez [facility] - POINT OF CA RE ORDERABLES * STREP A SCREEN DIRECT (01/15/2016 12:59 PM CDT) Only the most recent of2 resultswithin the time period is included. [facility] Rapid Strep A NEGATIVE NEGATIVE 01/15/2016 1:07 PM CDT [facility] Throat swab (specimen) ENTIRE THROAT (SURFACE REGION OF NECK) / Unknown 01/15/2016 12:59 PM CDT 01/15/2016 12:59 PM CDT Elly Pickard PA-C LAB - MICROBIOLOGY ORDERABLES Performing Organization Address City/[facility]/ZIP Co de Phone Number [facility] [address] [place] [address] Care Teams Store Hand Relationship Specialty Start Date End Date Homa Mckeon MD [address] [place] [address] PCP - General 03/27/21 Homa Mckeon MD [address] [place] [address] Family Medicine 03/27/21
--- OUTSIDE RECORDS SUMMARY | 2024-09-13 10:45 | XMS_ITS | Clinical Summary ---
Author Organization [facility] Address [address] [place] [phone] Phone Care Team Providers Care Veneer Redrier Name Role Phone Unavailable Primary Care Provider Unavailabl e Encounters Date Type Department Care Team Description 09/10/2024 External Device Data STL ABSTRACTION Provider, Abstract 09/07/2024 External Device Data STL ABSTRACTION Provider, Abstract 08/24/2024 External Device Data STL ABSTRACTION Provider, Abstract 08/16/2024 2:55 PM CORPORATE TRUST OFFICER - 08/16/2024 11:59 PM CORPORATE TRUST OFFICER Hospital Encounter [facility] Narayan Tolentino [address] [place] [phone] Paxton Owusu MD Discharge Disposition: Home or Self Care 08/05/2024 6:57 AM CORPORATE TRUST OFFICER - 08/05/2024 11:59 PM CORPORATE TRUST OFFICER Hospital Encounter [facility] Narayan Tolentino [address] [place] [phone] Paxton Owusu MD Discharge Disposition: Home or Self Care 08/03/2024 External Device Data STL ABSTRACTION Provider, Abstract 07/28/2024 External Device Data STL ABSTRACTION Provider, Abstract 07/28/2024 External Device Data STL ABSTRACTION Provider, Abstract 07/22/2024 3:30 PM CORPORATE TRUST OFFICER - 07/22/2024 11:59 PM CORPORATE TRUST OFFICER Hospital Encounter [facility] Narayan Tolentino [address] [place] [phone] Fernando lAvarenga MD Discharge Disposition: Home or Self Care 07/21/2024 External Device Data STL ABSTRACTION Provider, Abstract 06/22/2024 External Device Data STL ABSTRACTION Provider, Abstract 06/21/2024 10:15 AM CORPORATE TRUST OFFICER - 06/21/2024 11:59 PM CORPORATE TRUST OFFICER Hospital Encounter [facility] [place] [address] Narayan Tolentino [address] [place] [phone] Todd Sorensen MD Discharge Disposition: [...] 112.9 kg (249 lb) 06/21/2024 10:28 AM CORPORATE TRUST OFFICER Height 170.2 cm (5' 7 ) 06/21/2024 10:28 AM CORPORATE TRUST OFFICER Body Mass Index 39 06/21/2024 10:28 AM CORPORATE TRUST OFFICER Plan of Treatment Health Maintenance Due Date [...] UP PER FETUS Routine 08/16/2024 3:29 PM CORPORATE TRUST OFFICER Large for dates Obesity affecting , antepartum, second trimester Pyelectasis of fetus on ultrasound US OB LTD 1 OR MORE FETUSES Routine 08/05/2024 7:11 AM CORPORATE TRUST OFFICER Large for dates Obesity affecting , antepartum, second trimester Pyelectasis of fetus on ultrasound US OB FOLLOW UP PER FETUS Routine 07/22/2024 4:16 PM CORPORATE TRUST OFFICER Large for dates Obesity affecting , antepartum, second trimester Pyelectasis of fetus on ultrasound US OB DETAIL SINGLE GEST Routine 06/21/2024 11:08 AM CORPORATE TRUST OFFICER Encounter for ultrasound to assess growth from Last 3 Months Results * US OB FOLLOW UP PER FETUS (08/16/2024 3:29 PM CORPORATE TRUST OFFICER) Only the most recent of2 resultswithin the time period is included. Anatomical Region Laterality Modality Pelvis Ultrasound 08/16/2024 3:00 PM CORPORATE TRUST OFFICER Narrative 08/16/2024 3:27 PM CORPORATE TRUST OFFICER STL FOLLOW UP ----- Pat. Name: RAJENDRA LARSEN Study Date: 08/16/2024 3:00pm Pat. NO: [id number] Referring MD: TODD SORENSEN MD Site: [place] [facility] Counselor: Otilia Vicente RDMS : 1990 Age: 34 [...] low transverse scar from previous delivery Procedures [id number]: Ultrasound, uterus, real time with image documentation, [...] 8 lb 3 oz EFW by Hadlock ([id number]) Head / Face / Neck Biometry: Track Layer Head 5.4 mm Extremities / Bony Struc Biometry: [...] and date of were verified by the practical ministries professor prior to the exam IMPRESSION ----- Impression: [...] ----- Pat. Name:Ty LARSEN Date:53:00pm Pat. NO: [id number] MD:TODD SORENSEN [facility] Vicente RDMS :1990Age:34 ----- INDICATION ----- Maternal [...] for low transverse scarfrom previous delivery Procedures [id number]: Ultrasound, uterus, real time withimage documentation, follow up, transabdominal approach per fetus HISTORY ----- OB History 5. Para 1 T1A3L1 MATERNAL ASSESSMENT ----- Physical Exam Initial weight 107 kg, 236 lb. Initial BMI 38.09kg/m METHOD ----- Transabdominal ultrasound examination ----- Werner . Number of fetuses: 1 DATING ----- GA by prior w + 6 d SHIRA by prior [...] 8 lb 3 oz EFW by Hadlock ([id number]) Head / Face / Neck Biometry: Track Layer Head 5.4mm Extremities / Bony Struc Biometry: FL [...] and date of were verified by the practical ministries professor prior tothe exam IMPRESSION ----- Impression: Werner [...] 1 OR MORE FETUSES (08/05/2024 7:11 AM CORPORATE TRUST OFFICER) Anatomical Region Laterality Modality Pelvis Ultrasound 08/05/2024 6:58 AM CORPORATE TRUST OFFICER Narrative 08/05/2024 8:10 AM CORPORATE TRUST OFFICER STL LIMITED ----- Pat. Name: RAJENDRA LARSEN Study Date: 08/05/2024 6:58am Pat. NO: [id number] Referring MD: TODD SORENSEN MD Site: [place] Child Care Counselor: Kimberly Vasquez RDMS : 1990 Age: 34 [...] low transverse scar from previous delivery Procedures [id number]: Ultrasound, uterus, real time with image documentation, [...] and date of were verified by the practical ministries professor prior to the exam. IMPRESSION ----- 1. [...] ----- Pat. Name:Ty LARSEN Date:56:58am Pat. NO: [id number] MD:TODD SORENSEN [facility]Kimberly Vasquez RDMS :1990Age:34 ----- INDICATION ----- Maternal [...] for low transverse scarfrom previous delivery Procedures [id number]: Ultrasound, uterus, real time withimage documentation, limited one or more fetuses HISTORY ----- OB History 5. Para 1 T1A3L1 MATERNAL ASSESSMENT ----- Physical Exam Initial weight 107 kg, 236 lb. Initial BMI 38.09kg/m METHOD ----- Transabdominal ultrasound examination ----- Werner . Number of fetuses: 1 DATING ----- GA by prior [id number] w + 2 d SHIRA by prior [...] and date of were verified by the practical ministries professor prior tothe exam. IMPRESSION ----- 1. Single [...] OB DETAIL SINGLE GEST (06/21/2024 11:08 AM CORPORATE TRUST OFFICER) Anatomical Region Laterality Modality Pelvis Ultrasound 06/21/2024 10:3 0 AM CORPORATE TRUST OFFICER Narrative 06/21/2024 1:22 PM CORPORATE TRUST OFFICER STL COMP ----- Pat. Name: RAJENDRA JEONG Study Date: 06/21/2024 10:30am Pat. NO: [id number] Referring MD: TODD SORENSEN MD Site: [place] Child Care Counselor: Azalia Calderon RDMS : 1990 Age: 34 [...] Z36.3: Encounter for screening for malformations Procedures [id number]: Ultrasound, uterus, real time with image documentation, [...] 3 lb 5 oz EFW by Hadlock ([id number]) Head / Face / Neck Biometry: Track Layer Head 6.3 mm CM 7.3 mm 69% Nicolaides [...] view. RVOT view. LVOT view. 3-vessel view. 5-laprld-xunbnun view. Situs. Aortic arch view. Ductal arch [...] and date of were verified by the practical ministries professor before the exam IMPRESSION ----- - Intrauterine [...] up in 4 weeks. Procedure Note Paxton Owuus MD - 06/21/2024 STL COMP ----- [place]. Name:Ty JEONG Date::30am Pat. NO: [id number] :TODD SORENSEN [facility]Azalia Calderon RDMS :1990Age:34 ----- INDICATION [...] delivery Z36.3: Encounter for screening formalformations Procedures [id number]: Ultrasound, uterus, real time withimage documentation, and [...] dating:based on stated SHIRA GA by prior [id number] w + 6 d SHIRA by prior [...] 3 lb 5 oz EFW by Hadlock ([id number]) Head / Face / Neck Biometry: Track Layer Head 6.3 mm CM 7.3 mm 69%Nicolaides Extremities [...] 4-chamber view. RVOT view. LVOT view. 3-vesselview. 5-xdizdr-jxufenu view. Situs. Aortic arch view. Ductal arch [...] and date of were verified by the practical ministries professor beforethe exam IMPRESSION ----- - Intrauterine at [...] 28-30 weeks, and greater than 7 mm -56 weeks is considered elevated. This occurs in [...] up in 4 weeks. Todd Sorensen MD ORDERABLES Edited Result - Final from Last 3 Months Insurance [facility] OPEN ACCESS
--- OUTSIDE RECORDS SUMMARY | 2024-09-13 10:45 | XMS_ITS | Referral Summary ---
Author Organization [facility] [employer] Address [address] [address] Care Team Providers Care Furnace Worker Name Role Phone Homa Mckeon MD Primary Care Provider [phone] Homa Mckeon MD Unavailable Source Comments [facility],non-owned Affiliates and Associated Physician Practices is amultiple site organization consisting of ambulatory clinics and hospital sitesin [place], [place], [place] and [place]. This disclosure is being madepursuant to the Care Everywhere program and may not contain all information available regarding this patient. Last updated 18.[facility] Allergies No known active allergies Medications * [...] of Treatment Not on file Care Teams Furnace Worker Relationship Specialty Start Date End Date Homa Mckeon MD [address] [place] [address] PCP - General 03/27/21 Homa Mckeon MD [address] [place] [address] Family Medicine 03/27/21
--- OUTSIDE RECORDS SUMMARY | 2024-09-13 10:45 | XMS_ITS | Clinical Summary ---
Author Organization [facility] [employer] Address [address] [address] Care Team Providers Care Premium Auditor Name Role Phone Homa Mckeon MD Primary Care Provider [phone] Homa Mckeon MD Unavailable Source Comments [facility] [employer]non-owned Affiliates and Associated Physician Practices is amultiple site organization consisting of ambulatory clinics and hospital sitesin [place], [place], [place] and [place]. This disclosure is being madepursuant to the Care Everywhere program and may not contain all information available regarding this patient. Last updated 18.[facility] [employer] Allergies No known active allergies Medications * [...] age to complete this topic Care Teams Premium Auditor Relationship Specialty Start Date End Date Homa Mckeon MD [address] [place] [address] PCP - General 03/27/21 Homa Mckeon MD [address] [place] [address] Family Medicine 03/27/21
== END 2024-09-13 09:32 | disposition home or self-care (01) ==
PROVIDERS: Visit Provider Nurse Practitioner Family
DX: M79.89 Other specified soft tissue disorders (principal)
CPT/HCPCS: 93971